=== PATIENT | male | born 1985 | race Caucasian/White ===

== ENCOUNTER 2020-04-19 08:49 | Emergency (ER) | payer SELFPAY ==
--- OUTSIDE RECORDS SUMMARY | 2020-04-19 09:22 | XMS REPORT | Summary of Care ---
:1985 [facility] Organization [facility] Address [address] [place] [address] Care Team Providers Name Role Phone Pcp, Patient Does Not Have A Primary Care Provider +[id number] 0-0000 Reason for Referral (Routine) Status Reason Specialty Diagnoses / Referred By Referred To Procedures Contact Contact New Request Internal Medicine Diagnoses RUQ abdominal pain Delilah Appiah, Pcp, Patient Procedures Discharge Follow-up: PCP PATIENT DOES NOT HAVE A PCP; 1 Week MD Does Not Have A 301 COUNTS INCLUDE 234 BEDS AT THE [facility] [address] [place] [id number] Phone: MRI/CAT Scan (JOSE A) Status Reason Specialty Diagnoses / Referred By Referred To Procedures Contact Contact New Request Diagnostic Diagnoses Acute cholecystitis Delilah Appiah Radiology Procedures CT ABDOMEN PELVIS W CONTRAST CT ABDOMEN PELVIS W CONTRAST MD Cristiane [address] [place] [id number] Radiology Services (STAT) Status Reason Specialty Diagnoses / Referred By Referred To Procedures Contact Contact New Request Diagnostic Diagnoses Epigastric burning sensation Epigastric abdominal pain Delilah Cochran Radiology Procedures US GALL BLADDER US ABDOMEN LIMITED R, EMNP 301 COUNTS INCLUDE 234 BEDS AT THE [facility] [id number] [place] [address] Reason for Visit Reason Comments Abdominal Pain Auth/Cert Status Reason Specialty Diagnoses / Referred By Referred To Procedures Contact Contact Medicine - Diagnoses acute cholecystitis Adc Med Surg Inpatient only [address] [place] [address] [place] [address] Encounter Details Date Type Department Care Team Description 03/10/2020 - Emergency Medicine (EMILY 10B) Delilah Cochran EMNP 301 COUNTS INCLUDE 234 BEDS AT THE [facility] [id number] [place], [place] [id number] Acute cholecystitis 03/14/2020 712 [facility] Cruzito Simons MD [address] [place] [address]. [address] [place], [place] [id number] [place] [address] Delilah Appiah MD 301 COUNTS INCLUDE 234 BEDS AT THE [facility] [id number] [place], [place] [id number] [phone] Allergies No Known Allergiesdocumented as of this encounter (statuses as of 03/14/2020) Medications Medication Sig Dispensed Refills Start Date End Date Status nicotine 21 mg/24 hr Apply 1 Patch to 7 Patch 0 03/15/2020 1 05/23/2019 Active patchIndications: RUQ area(s) every 24 abdominal pain (twenty-four) hours for 7 days. ciprofloxacin HCl 500 Take 1 tablet by 6 tablet 0 03/15/2020 03/18/2020 Active mg tabletIndications: mouth every 12 RUQ abdominal pain (twelve) hours for 3 days. metroNIDAZOLE 250 mg Take 2 tablets 18 tablet 0 03/15/2020 Active tabletIndications: RUQ by mouth every 8 abdominal pain (eight) hours for 3 days. documented as of this encounter (statuses as of 03/14/2020) Active Problems Problem Noted Date Acute cholecystitis 03/11/2020 documented as of this encounter (statuses as of 03/14/2020) Social History Tobacco Use Types Packs/Day Years Used Date Current Every Day Smoker Cigarettes Smokeless Tobacco: Current User Chew Tobacco Cessation: Ready to Quit: No; Co unseling Given: Yes Comments: probably will not stop Alcohol Use Drinks/Week oz/Week Comments Yes 6 Cans of beer 6.0 Alcohol Habits Answer Date Recorded How often do you have a drink containing 4 or more times a w [place] 03/11/2020 alcohol? How many drinks containing alcohol do you have 5 or 6 03/12/2020 on a typical day when you are drinking? How often do you have six or more drinks on one Not asked 03/11/2020 occasion? Sex Assigned at Date Recorded Not on file COVID-19 Exposure Response Date Recorded In the last month, have you been in contact with No / Unsure 03/12/2020 11:49 PM INSTRUCTOR CREELER someone who was confirmed or suspected to have Coronavirus / COVID-19? documented as of this encounter Last Filed Vital Signs Vital Sign Reading Time Taken Comments Blood Pressure 132/81 03/14/2020 11:55 AM INSTRUCTOR CREELER Pulse 58 03/14/2020 7:37 AM INSTRUCTOR CREELER Temperature 37.3 C (99.1 F) 03/14/2020 11:55 AM INSTRUCTOR CREELER Respiratory Rate 18 03/14/2020 11:55 AM INSTRUCTOR CREELER Oxygen Saturation 100% 03/14/2020 7:37 AM INSTRUCTOR CREELER Inhaled Oxygen Concentration - - Weight 71.2 kg (157 lb) 03/13/2020 1:08 AM INSTRUCTOR CREELER Height 170.2 cm (5' 7") 03/11/2020 2:03 AM INSTRUCTOR CREELER Body Mass Index 24.59 03/11/2020 2:03 AM INSTRUCTOR CREELER documented in this encounter Discharge Instructions AttachmentsThe following attachments cannot be sent through Care Everywhere. Epigastric Pain (Uncertain Cause) (Brazilian)Colitis, Understanding (Brazilian) Gastritis (Adult) (Brazilian)Gastritis, Understanding (Brazilian)Ciprofloxacin tablets (Brazilian)Metronidazole tablets or capsules (Brazilian)documented in this encounter Progress Notes Britany Isbell RN - 03/14/2020 12:40 PM INSTRUCTOR CREELER Care Management Discharge Disposition Note (DCDN) 5-2-1 Interventions: Disease specific education;Intensive medication reconciliation/management;Cleardischarge plan;Follow-up appointments;Teach back 5-2-1 Providers: Nurse;Physician;Business Data Analyst/Wound Care Center Consultant 5-2-1 Patient Capacity Improvements: Avoidance of adverse events/readmission Discharge Plan for ongoing care and services: Patient Choice completed for referred services: Discussed with patient/patients family involved in decision making: Patient's family or support contact: Discharge Plan: Receiving facility was provided the following clinical documentation at discharge- CM Facesheet, Consult notes, Labs, Progress Notes, MAR: DME location: Other DME location: Durable Medical Equipment: Home Health location: Discharge location(s): Community resources/referrals made or provided to patient: Yes Resources/Referrals: Mental Status: Alert & Oriented to Person,Place & Time Psychosocial issues and/or concerns resulting in patient being a high risk for re-admission: Lack offunding Manage ADL indepentdly: Yes Living Arrangement: Apartment Other living arrangement: Address of living arrangement: [address] [place] [address] Funding Resources: Self Pay Has patient been referred to [facility]? Nursing informed of discharge plan: No CHP referral sent? No CM medication request completed (if appropriate): No PCP: No Transportation: Private Vehicle Prior authorization obtained for ambulance: Authorization number: CPT code: Discharge Medications Will the patient be able to obtain his medications? Yes Does the patient have transportation to to obtain the prescription medications? Yes CM Medication Request completed (if appropriate): Yes Name of RN informed: AL Expected discharge date: 03/15/2020 Time: Additional Information: CM/SW Name & Contact number: Britany Isbell RN Ph. [phone] The following information has been provided to the facility noted above: reason for the patient discharge or transfer; patients physical and psychosocial status; summary of care, treatment, servicesprovided to patient; and the patient progress toward goals. hMina jose RN - 03/13/2020 12:25 PM CSTCare Management Social Functional Assessment Patient Name: Julio Nieto Age: [age] year old Sex: male Previous admit date: N/A Current diagnosis and co-morbidities: acute cholecystitis Readmission Questions: Was patient discharged from any acute care hospital within the last 30 days: No Social Functional Assessment: Primary language spoken/preferred: Brazilian Mental Status: Other Information given by: Other Name and phone number of person giving information: parents in [place] SO [phone] Patient's support system: Parent Name and number of support system: parents in [place] [phone] Primary Kitchen Helper: Self MPOA: No Living Arrangement: Apartment: Upstairs Address of living arrangement : physical address [address] [address] Persons living in home: Same as support system Barriers to returning home: None Baseline functional status- ambulation: Independent Functional status-baseline personal care: Independent Baseline functional status- driving: Independent Baseline functional status- grocery shopping: Independent Functional status-baseline housekeeping: Independent Functional status-baseline meal prep: Independent Current functional status same as prior: No Current functional status- ambulation: Requires minimal to moderate assistance Current functional status- personal care: Requires minimal to moderate assistance Current functional status- driving: Dependent Current functional status- grocery shopping: Dependent Current functional status-house keeping: Dependent Current functional status- meal preparation: Dependent Do you have a PCP?: No Refered to: [facility] Agency: No Provider Services: No DME Company: No Equipment: None Hemodialysis: No Community resources utilized: [facility] [employer];[facility] Fact Sheet;[facility] Funding Resources: Self Pay Prescription coverage plan: Self Pay Pharmacy where meds are filled: Other Other pharmacy: [id number] [address] [place] [address] Anticipated services prior to disharge: Consult;Continue Medical Eval;Lab Values;MRI/CT/US;PT/OT/ST;Reassess prior to discharge Expected mode of discharge transportation: Personal vehicle;Same as support system Additional info required for discharge planning: Pending medical evaluation Recommended discharge plan: Home SFA Complete: Social Functional Assessment complete: Yes Alcohol Use Screening (AUDIT-C) How often do you have a drink containing alcohol?: 2 to 3 times a week SCORE: 3 How many drinks containing alcohol do you have on a typical day when you are drinking?: 1 or 2 drinks How often do you have six or more drinks on one occasion?: Monthly Total Score (AUDIT-C): 5 Role of Care Management explained. Any issues or concerns with obtaining/affording your medications at home: no. Are you or your support system able to picker box operator medications at discharge: yes. Describe: self and GF. MARLEN Rivas, RN Mortgage Collector [email or web address] O:[phone] F:[phone] Ac Velez MD - 03/12/2020 5:01 PM CST Hospital Medicine Progress Note Name: Julio Nieto : 1985 Admit Date: 03/10/2020 PCP on file: PATIENT DOES NOT HAVE A PCP ASSESSMENT: Julio Nieto is a 34 year old male with PLAN: # Acute abd pain, diarrhea # Questionable acute cholecystitis # Leukocytosis - continue zosyn day 2 - IVF - PPI - pain and nausea control - surgery following - patient needs abd/pelv CT to guide further management. However, the CT machine at [facility] remains down. Will request transfer for CT abd/pelv Addendum: case d/w Dr. Russell, who kindly accepted the patient for CT abd/pelv # Mild hyperkalemia - etiology unclear - monitor # tobacco abuse - patient was counseled for smoking cessation - nicotine patch Dispo: transfer to the main campus for CT abc/pelv. 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 Afebrile. OBJECTIVE: Vital signs range: Temp: [35.7 C (96.2 F)-36.8 C (98.3 F)] 36.4 C (97.6 F) Pulse: [65-80] 67 Resp: [18] 18 BP: (103-141)/(51-89) 135/89 Most recent vital signs: BP 135/89 | Pulse 67 | Temp 36.4 C (97.6 F) (Temporal Artery) | Resp 18 | Ht 1.702 m (5' 7") | Wt 71.3 kg (157 lb 1.6 oz) | SpO2 99% | BMI 24.61 kg/m I/O: I/O last 3 completed shifts: In: 300 [I.V.:300] Out: 800 [Urine:800] PHYSICAL EXAM: General: alert and oriented x 4 (person, place, date/time and situation); no apparent distress HEENT: pupils equal, round, reactive to light; extraocular movements intact; oropharynx clear; moistmucous membranes Neck: supple, no lymphadenopathy, no bruits, no JVD Lungs: clear to auscultation bilaterally Cardio: S1, S2 normal; no murmurs, rubs or gallops Abdomen: soft; mild tender at epigastric; non-distended; normoactive bowel sounds Extremities: no clubbing, cyanosis, or edema Skin: no rashes Neuro: cranial nerves II through XII grossly intact; sensation grossly intact; muscle strength 5 outof 5 in all four extremities, no focal deficits, alert and oriented x 3 LABS: I reviewed all the relevant patient's new lab test results Recent Results (from the past 24 hour(s)) CBC WITH DIFF Collection Time: 03/12/20 4:04 AM Result Value Ref Range WBC 13.73 (H) 4.20 - 10.70 10*3/L RBC 3.96 (L) 4.26 - 5.52 10*6/L HGB 12.3 12.2 - 16.4 g/dL HCT 37.5 (L) 38.4 - 49.3 % MCV 94.7 81.7 - 95.6 fL MCH 31.1 26.1 - 32.7 pg MCHC 32.8 31.2 - 35.0 g/dL RDW-SD 43.2 38.5 - 51.6 fL RDW-CV 12.4 12.1 - 15.4 % PLT 213 150 - 328 10*3/L MPV 9.7 (L) 9.8 - 13.0 fL NRBC/100 WBC 0.0 0.0 - 10.0 /100 WBCs NRBC x10^3 <0.01 10*3/L GRAN MAT (NEUT) % 67.0 % IMM GRAN % 0.90 % LYMPH % 15.6 % MONO % 15.4 % EOS % 0.5 % BASO % 0.6 % GRAN MAT x10^3(ANC) 9.21 (H) 1.99 - 6.95 10*3/uL IMM GRAN x10^3 0.12 (H) 0.00 - 0.06 10*3/uL LYMPH x10^3 2.14 1.09 - 3.23 10*3/uL MONO x10^3 2.11 (H) 0.36 - 1.02 10*3/uL EOS x10^3 0.07 0.06 - 0.53 10*3/uL BASO x10^3 0.08 0.01 - 0.09 10*3/uL COMP. METABOLIC PANEL (41795) Collection Time: 03/12/20 4:04 AM Result Value Ref Range NA 140 135 - 145 mmol/L K 5.3 (H) 3.5 - 5.0 mmol/L CL 104 98 - 108 mmol/L CO2 TOTAL 29 23 - 31 mmol/L AGAP 7 2 - 16 BUN 6 (L) 7 - 23 mg/dL GLUCOSE 109 70 - 110 mg/dL CREATININE 0.89 0.60 - 1.25 mg/dL TOTAL BILI 0.4 0.1 - 1.1 mg/dL CALCIUM 9.0 8.6 - 10.6 mg/dL T PROTEIN 5.3 (L) 6.3 - 8.2 g/dL ALBUMIN 3.0 (L) 3.5 - 5.0 g/dL ALK PHOS 73 34 - 122 U/L ALTv 18 5 - 50 U/L AST(SGOT) 16 13 - 40 U/L eGFR Calculation (Non-) 99.1 mL/min/1.73m2 eGFR Calculation () 120.1 mL/min/1.73m2 HIV 1/2 AG-AB WITH REFLEX Collection Time: 03/12/20 4:04 AM Result Value Ref Range HIV 1/2 Ag-Ab with Reflex Negative Negative HIV Semi-quantitative 0.08 IMAGING: I reviewed all the relevant patient's new radiology test results Hospital Encounter on 03/10/20 US GALL BLADDER Narrative RIGHT UPPER QUADRANT ULTRASOUND HISTORY: rule out cholecystitis COMPARISON: None. TECHNIQUE: Focused Real-time grayscale and color Doppler right upper quadrant ultrasound. FINDINGS: LIVER: Normal in size and echo-texture. No focal hepatic lesion. Normal hepatopetal flow within the main portal vein. GALLBLADDER: Hydropic gallbladder. Isoechoic debris layers dependently within the gallbladder lumen, likely represent cholelithiasis. Small volume pericholecystic fluid. No sonographic Montano's sign. The common bile duct measures 5 mm. PANCREAS: Visualized portions of the pancreatic head, neck and body appear unremarkable. RIGHT KIDNEY: The visualized portion of the right kidney is unremarkable. Impression Distended gallbladder with no definite shadowing stones or mural thickening. Minimal internal echogenic material may represent sludge or small stones. Negative sonographic Montano's sign. Findings are unlikely to represent acute cholecystitis. Preliminary Report Dictated by Resident: Milagros Cordon I, Stevie Kim MD., have reviewed this study and agree with the above report. MEDICATIONS: I reviewed the current inpatient medications ordered Current Facility-Administered Medications Medication Dose Route Frequency Last Rate Last Admin acetaminophen (TYLENOL) tablet 1,000 mg 1,000 mg Oral Q8HPRN morpHINE injection 2 mg 2 mg Slow IV Push Q6HPRN 2 mg at 03/12/20 1355 traMADoL (ULTRAM) tablet 50 mg 50 mg Oral Q6HPRN 50 mg at 03/12/20 1240 alum-mag hydroxide-simeth (MAALOX PLUS / MAG-AL PLUS) 200-200-20 mg/5 mL suspension 30 mL 30 mLOral BID 30 mL at 03/12/20 0759 D5W 0.45% NaCl (1/2NS) IV infusion 1,000 mL 1,000 mL IV Infusion CONTINUOUS 125 mL/hr at 03/12/20 0816 1,000 mL at 03/12/20 0816 lactobacillus acidophilus (ACIDOPHILLUS) 25 million cell -100 mg captab 1 tablet 1 tablet Oral BID 1 tablet at 03/12/20 0759 nicotine (NICODERM) 21 mg/24 hr patch 1 Patch 1 Patch Topical Q24H 1 Patch at 03/12/20 0759 ondansetron (ZOFRAN (PF)) injection 4 mg 4 mg Slow IV Push Q6HPRN 4 mg at 03/11/20 1511 pantoprazole (PROTONIX) 40 mg in NaCl 0.9% (NS) 100 mL MINI-BAG 40 mg IV Piggyback Q12H 40 mgat 03/12/20 0759 piperacillin-tazobactam (ZOSYN) 3.375 g in NaCl 0.9% (NS) 100 mL MINI-BAG 3.375 g IV Piggyback Q6H ABX 3.375 g at 03/12/20 1630 zolpidem (AMBIEN) tablet 5 mg 5 mg Oral QHSPRN 5 mg at 03/12/20 0015 sodium chloride (NS) injection 5 mL 5 mL Intravenous PRN Adrian Bonner MD - 03/12/2020 9:42 AM CST GENERAL SURGERY DAILY PROGRESS NOTE Patient Name: Julio Nieto Date of : 1985 Date: 03/12/2020 CC: abdominal pain 24 Hour Events: -No acute events overnight -CT A/P unable to be obtained due to broken scanner -Reports pain is mildly improved -One episode of diarrhea, denies nausea or vomiting Intake/Output Intake/Output Summary (Last 24 hours) at 03/12/2020 0942 Last data filed at 03/12/2020 0725 Gross per 24 hour Intake 100 ml Output 200 ml Net -100 ml Physical Exam: Vital Signs Temp: [35.7 C (96.2 F)-37.1 C (98.8 F)] Pulse: [65-85] Resp: [18] BP: (103-125)/(51-71) MAP (mmHg): [88] Constitutional: no acute distress and not in pain General: A & O x 3 to person, place and situation HEENT: moist mucous membranes Respiratory: clear to auscultation bilaterally Cardio: regular rate and rhythm Abdomen: soft, nondistended, moderately TTP in periumbilical region and right flank Extremities: DP and PT pulses 3+ bilaterally. No edema. Skin: no rashes Diagnostic information: Cell count Recent Labs 03/10/20213503/11/20 0559 03/12/20 0404 WBC 17.59* 16.08* 13.73* HGB 13.2 11.6* 12.3 MCV 92.6 92.8 94.7 PLT 212 206 213 Chemistry Recent Labs 03/10/20213503/11/20 0559 03/12/20 0404 NA 133* 134* 140 K 4.4 4.7 5.3* CL 97* 103 104 TCO2 28 26 29 CREAT 0.97 0.76 0.89 GLU 135* 134* 109 MG 2.0 -- -- CA 8.8 8.5* 9.0 Coagulation Profile Recent Labs 03/11/20 0559 PTPAT 15.8* PTINR 1.3 LFTs Recent Labs 03/10/20213503/11/20 0559 03/12/20 0404 AST 32 27 16 ALT 33 23 18 ALKPHOS 78 65 73 LIPASE 105 -- -- BILIT 0.5 0.5 0.4 Radiology: Us Gall Bladder Result Date: 03/11/2020 RIGHT UPPER QUADRANT ULTRASOUND HISTORY: rule out cholecystitis COMPARISON: None. TECHNIQUE: Focused Real-time grayscale and color Doppler right upper quadrant ultrasound. FINDINGS: LIVER: Normal insize and echo-texture. No focal hepatic lesion. Normal hepatopetal flow within the main portal vein. GALLBLADDER: Hydropic gallbladder. Isoechoic debris layers dependently within the gallbladder lumen, likely represent cholelithiasis. Small volume pericholecystic fluid. No sonographic Montano's sign.The common bile duct measures 5 mm. PANCREAS: Visualized portions of the pancreatic head, neck and ninoska dy appear unremarkable. RIGHT KIDNEY: The visualized portion of the right kidney is unremarkable. Distended gallbladder with no definite shadowing stones or mural thickening. Minimal internal echogenic material may represent sludge or small stones. Negative sonographic Montano's sign. Findings are unlikely to represent acute cholecystitis. Preliminary Report Dictated by Resident: Milagros Cordon I,Stevie Kim MD., have reviewed this study and agree with the above report. Assessment : Julio Nieto is a 34 year old male presenting with 3 days of periumbilical abdominal pain associated with 4-5 daily episodes of diarrhea, in setting of leukocytosis to 17. RUQ U/S demonstrated no evidence of acute cholecystitis. CT scan remains broken, inhibiting ability to obtain further imaging. Today, WBC is downtrending and abdominal tenderness is mildly improved. Plan: -Continue IV zosyn -Obtain CT scan if functioning today -Advance to [facility] -Serial abdominal exams Patient seen with Dr. Bell. Adrian Gates MD General Surgery, PGY-2 RUCTOR CREELER Associated attestation - Ace Bell MD - 03/13/2020 7:45 AM CSTAgree David Belldocumented in this encounter H&P Notes Noah Ricci MD - 03/12/2020 5:45 PM CST MEDICINE [facility] H&P Patient Name: Julio Nieto : 1985 Admit Date: 03/10/2020 Primary Care Physician: PATIENT DOES NOT HAVE A PCP CHIEF COMPLAINT Abdominal pain HISTORY OF PRESENT ILLNESS Julio Nieto is a 34 year old male with history of tobacco use (17 pack years + 6 months of dipping), etoh use (6 pack beer per day), PUD, testicular vessel surgery as a teenager presenting with complaint of abdominal pain. Patient admitted to [facility] on 03/11/20 for complaint of 2-3 day duration of epigastric and RUQ pain described as sharp, burning, worsened with food and associated with diarrhea and nausea. Denied anyprevious intra-abdominal surgeries. At [facility] patient was evaluated by surgery team who noted that patient presented with 3 days of periumbilical abdominal pain with 4-5 daily episodes of diarrhea, RUQ USdemonstrated no evidence of cholelithiasis or wall thickening, given findings surgery team noted that diagnosis of cholecystitis very unlikely with differential included colitis vs appendicitis vs gastroenteritis. They recommended no surgical intervention currently, continue with IV zosyn but to obtain CT AP. CT broken at [facility] and patient transferred to [facility] for CT AP. On arrival to [facility] patient reports that he feels that his abdominal pain is improved since admission to [facility]. He describes events as started having bloating epigastric sensation four days ago whichworsened to a significant burning sensation, the epigastric sensation radiates down to his periumbilical region as well as his right mid flank. He notes that the pain has decreased in severity and has improved back from burning to the bloating sensation. Denies any emesis, chest pain, shortness of breath, fevers, chills, dysuria, shoulder pain or back pain. He notes belching but not as much he would correlate to the degree of bloating. He denies ever having similar abdominal symptoms in the past. Patient does note that he has chronic hemorrhoids with bright red blood in stool, he declines MEAGHAN orfurther evaluation saying that there is no change in the character of bright red blood in stool. Denies any new bleeding. 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 Denies noticing any testicular masses.Denies any testicular pain or headaches. PAST MEDICAL HISTORY Past Medical History: Diagnosis Date Smoker PAST SURGICAL HISTORY Past Surgical History: Procedure Laterality Date OTHER hand surgery OTHER vascular surgery in testicle MEDICATIONS No current facility-administered medications on file prior to encounter. No current outpatient medications on file prior to encounter. ALLERGIES No Known Allergies FAMILY HISTORY Family History Problem Relation Age of Onset Coronary Heart Disease Mother SOCIAL HISTORY Social History Tobacco Use Smoking status: Current Every Day Smoker Types: Cigarettes Smokeless tobacco: Current User Types: Chew Substance Use Topics Alcohol use: Yes Alcohol/week: 6.0 standard drinks Types: 6 Cans of beer per week Frequency: 4 or more times a week Drinks per session: 5 or 6 Drug use: Not Currently REVIEW OF SYSTEMS Constitutional: Negative HEENT: Negative Cardiovascular: Negative Respiratory: Negative Gastrointestinal: Abdominal Pain per HPI Genitourinary: Negative Musculoskeletal: Negative Neurological: Negative PHYSICAL EXAM Vitals Vitals: 03/12/20 0725 03/12/20 1115 03/12/20 1649 03/12/20 2043 BP: 125/71 (!) 141/77 135/89 126/73 Pulse: 69 73 67 70 Resp: 18 Temp: 35.7 C (96.2 F) 36.2 C (97.2 F) 36.4 C (97.6 F) 35.6 C (96.1 F) TempSrc: Temporal Artery Temporal Artery Temporal Artery Temporal Artery SpO2: 98% 99% 99% 98% Weight: 71.3 kg (157 lb 1.6 oz) Height: Temp: [35.6 C (96.1 F)-36.4 C (97.6 F)] Pulse: [65-73] Resp: [18-20] BP: (104-141)/(51-89) MAP (mmHg): [88-102] SpO2 readings for the past 24 hrs: SpO2 03/11/20 1910 94 % 03/11/20 2308 96 % 03/12/20 0308 91 % 03/12/20 0725 98 % 03/12/20 1115 99 % 03/12/20 1649 99 % General: No apparent distress HEENT: able to track movement Neck: ROM intact Cardiovascular: RRR Respiratory: CTA b/l Abdomen: +BS hyperactive, mild epigastric tenderness and right abdominal tenderness, no rebound, no guarding, negative Montano's sign Rectal: patient declined MEAGHAN, reports he only has chronic hemorrhoids with chronic bleeding with no new changes : No suprapubic tenderness, completed testicular exam with nurse batt machine operator: no palpable masses or lesions and no tenderness of examination MSK: No lower extremity edema Skin: No apparent rashes Neuro: Coherent to conversation LABS WBC 17.59->16.08->13.7 Hb 12.3 EOS 0.07 K 5.3 Cr 0.89 AGAP 7 Ca 9.0 Albumin 3.0 ALP 73 ALT 18 AST 16 T bili 0.4 Lipase 105 A1c 4.8% TSH 5.59 INR 1.3 U/A negative for UTI HIV negative Feces Culture in process IMAGING US RUQ 03/10/20 FINDINGS: LIVER: Normal in size and echo-texture. No focal hepatic lesion. Normal hepatopetal flow within the main portal vein. GALLBLADDER: Hydropic gallbladder. Isoechoic debris layers dependently within the gallbladder lumen, likely represent cholelithiasis. Small volume pericholecystic fluid. No sonographic Montano's sign. The common bile duct measures 5 mm. PANCREAS: Visualized portions of the pancreatic head, neck and body appear unremarkable. RIGHT KIDNEY: The visualized portion of the right kidney is unremarkable. IMPRESSION Distended gallbladder with no definite shadowing stones or mural thickening. Minimal internal echogenic material may represent sludge or small stones. Negative sonographic Montano's sign. Findings are unlikely to represent acute cholecystitis. Chart Review: See HPI ASSESSMENT/PLAN Julio Nieto is a 34 year old male with PMH of tobacco use (17 pack years + 6 months of dipping), etoh use (6 pack beer per day), PUD, testicular vessel surgery as a teenager presenting with: Abdominal Pain Leukocytosis Hx of Testicular Vessel Surgery Hyperkalemia Tobacco Abuse ETOH Abuse Chronic Hemorrhoids with Bright Red Blood, patient declined MEAGHAN evaluation or further evaluation Patient presenting from [facility] with concern of abdominal pain around epigastric/robert-umbilical region and right side of abdomen. At [facility] patient had surgery evaluation who noted that acute cholecystis lesslikely based on RUQ US findings and recommended CT AP to evaluate for other causes of abdominal pain including colitis vs appendicitis vs enteritis. CT machine at [facility] broken and patient transferred to [facility] for further evaluation and CT AP. 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 Chronic Hemorrhoids with Bright Red Blood, patient declined MEAGHAN evaluation or further evaluation. Plan - Admit to [facility] - Vitals q4h, O2 per protocol - BMP, Mg, Phos - Free T4, previous elevated TSH at [facility] - CT AP ordered - Serial Abdominal Exams - C/w Zosyn 3.375 g IV q6h - LR 75 cc/hr for 24 hours, monitor volume status and UOP - C/w Nicotine patch, discussed importance of quitting smoking and ETOH use - C/w PPI IV BID pending CT scan - D/c Ambien, will start melatonin 3mg qhsprn - AFP, bHCG given history of testicular surgery and robert-umbilical pain, less likely etiology of pain given no testicular masses and no testicular symptoms at this time - Consult Surgery in morning if concerning findings on CT AP F: LR 75 cc/hr for 24 hours E: Replete prn N: CLD, if concerning findings on CT AP will need to be made NPO for surgical evaluation Prophylaxis: Heparin, start tomorrow given possible need of surgical evaluation if concerning findings on CT AP Code: Full Disp: Pending Noah Ricci MD [facility] Internal Medicine Resident RUCTOR CREELER Associated attestation - Colt Russell MD - 03/13/2020 2:17 AM CSTI personally examined the patient on 03/12/[address] Ricci's resident note as written. I actively participated in the decision-making process. Please see the resident's note for additional details. Colt Russell MD Division of Internal Insole And Heel StiffenerShell Reprint Operator Cruzito Simons MD - 03/11/2020 3:00 AM CST General Internal Medicine Admission History & Physical CHIEF COMPLAINT: abdominal pain History of Present Illness 34 y/o male presents with epigastric and RUQ pain, sharp, burning, severe, intermittent for 2-3 days, worsened with food and associated with diarrhea and nausea and low grade fever. No hx of abdominal surgery. ER spoke to Dr. Ortiz for possible acute cholecystitis. PAST MEDICAL HISTORY Past Medical History: Diagnosis Date Smoker Past Surgical History: Procedure Laterality Date OTHER hand surgery OTHER vascular surgery in testicle Family History Problem Relation Age of Onset Coronary Heart Disease Mother ALLERGIES No Known Allergies MEDICATIONS There are no discharge medications for this patient. SOCIAL HISTORY Social History Socioeconomic History Marital status: Single Spouse name: Not on file Number of children: Not on file Years of education: Not on file Highest education level: Not on file Occupational History Not on file Social Needs Financial resource strain: Not on file Food insecurity Worry: Not on file Inability: Not on file Transportation needs Medical: Not on file Non-medical: Not on file Tobacco Use Smoking status: Current Every Day Smoker Smokeless tobacco: Current User Substance and Sexual Activity Alcohol use: Yes Frequency: 4 or more times a week Drug use: Not Currently Sexual activity: Not on file Lifestyle Physical activity Days per week: Not on file Minutes per session: Not on file Stress: Not on file Relationships Social connections Talks on phone: Not on file Gets together: Not on file Attends episcopalian service: Not on file Active member of club or organization: Not on file Attends meetings of clubs or organizations: Not on file Relationship status: Not on file Intimate partner violence Fear of current or ex partner: Not on file Emotionally abused: Not on file Physically abused: Not on file Forced sexual activity: Not on file Other Topics Concern Not on file Social History Narrative Not on file REVIEW OF SYSTEMS Constitutional: negative fevers/chills, weight changes + appetite change Eyes: negative acute blurry vision, eye discharge Ears, Nose, Mouth, Throat: negative dysphagia, runny nose, sore throat, tinnitus Cardiovascular: negative chest pain, paplitaitons Respiratory: positive sob, negative cough Gastrointestinal: positive abd pain, distention, nausea, diarrhea Genitourinary: Negative dysuria, hematuria Musculoskeletal: negative calf pain, swelling Integumentray: negative rash, itching Neurological: negative syncope, focal weakness Psychiatric: negative hallucinations PHYSICAL EXAMINATION Vitals: 03/11/20 0130 03/11/20 0145 03/11/20 0203 03/11/20 0340 BP: 116/62 (!) 141/78 Pulse: 84 86 80 92 Resp: 14 12 16 16 Temp: 36.8 C (98.3 F) 36.9 C (98.4 F) TempSrc: Temporal Artery Temporal Artery SpO2: 98% 97% 98% 99% Weight: 74.1 kg (163 lb 6.4 oz) Height: 1.702 m (5' 7") No respiratory distress whne lying, there is some distress due to pain Anicteric sclera, oral mucosa clear Good air entry b/l RRR, nl s1s2 Abd soft, + tender in epigastric and RUQ region, no clear murphys sign, no rebound/guarding, + some distention No significant LE, no calf tenderness AAO, no gross deficits Skin warm and dry Bilateral knees inspected and palpated and is not red or swollen LABS - reviewed pertinent labs as below: CBC BMP PT/INR WBC (10*3/L) Date Value 03/10/2020 17.59 (H) NA (mmol/L) Date Value 03/11/2020 134 (L) No results found for: PT RBC (10*6/L) Date Value 03/10/2020 4.19 (L) K (mmol/L) Date Value 03/11/2020 4.7 INR (no units) Date Value 03/11/2020 1.3 PLT (10*3/L) Date Value 03/10/2020 212 CALCIUM (mg/dL) Date Value 03/11/2020 8.5 (L) HGB (g/dL) Date Value 03/10/2020 13.2 CL (mmol/L) Date Value 03/11/2020 103 aPTT HCT (%) Date Value 03/10/2020 38.8 BUN (mg/dL) Date Value 03/11/2020 12 No results found for: APTTPAT CREATININE (mg/dL) Date Value 03/11/2020 0.76 IMAGING - reviewed, pertinent results as below: Hospital Encounter on 03/10/20 US GALL BLADDER Narrative RIGHT UPPER QUADRANT ULTRASOUND HISTORY: rule out cholecystitis COMPARISON: None. TECHNIQUE: Focused Real-time grayscale and color Doppler right upper quadrant ultrasound. FINDINGS: LIVER: Normal in size and echo-texture. No focal hepatic lesion. Normal hepatopetal flow within the main portal vein. GALLBLADDER: Hydropic gallbladder. Isoechoic debris layers dependently within the gallbladder lumen, likely represent cholelithiasis. Small volume pericholecystic fluid. No sonographic Montano's sign. The common bile duct measures 5 mm. PANCREAS: Visualized portions of the pancreatic head, neck and body appear unremarkable. RIGHT KIDNEY: The visualized portion of the right kidney is unremarkable. Impression Distended gallbladder with no definite shadowing stones or mural thickening. Minimal internal echogenic material may represent sludge or small stones. Negative sonographic Montano's sign. Findings are unlikely to represent acute cholecystitis. Preliminary Report Dictated by Resident: Stevie Romero MD., have reviewed this study and agree with the above report. ASSESSMENT/PLAN Julio Nieto is a 34 year old male with PMH as listed above, admitted to the hospital with: Acute cholecystitis Acute choleycystitis RUQ u/s equivocal General surgery consult Dr. Ortiz, called from ER Possible surgery, discuss need for HIDA Iv zosyn day 1 IV protonix Iv morphine prn IVF Leukocytosis, monitor Does not take any home medications Smoker. Counseled on cessation for 3 minutes on admission, nicotine patch Chronic alcohol abuse. Counseled. MV/folic acid/thiamine. Monitor for withdrawals Continuous puls ox dvt proph - SCD Full Code Place in observation documented in this encounter ED Notes Magdalena Espinosa RN - 03/10/2020 9:30 PM CSTCC: Pt reports bloating, epigastric burning, and diarrhea x 2-3 days PMHx: Stomach ulcers as a teenager, cat scratch fever; smoker and daily drinking PSH:vascular surgery on testicle MEDS:none daily; immodium, gas X, apple cider vinegar Tetanus: UTD Awake, alert, oriented, resp reg unlabored, skin warm, color appropriate for race, moves all ext without difficulty, amb with steady gait Appears in no distress RUCTOR CREELER Delilah Cochran EMNP - 03/10/2020 9:22 PM CST [facility] Emergency Department Note Patient Name: Julio Nieto Date of : 1985 34 year old male Treatment Room: AR4/AR4 Primary Care Physician: No primary care provider on file. Patient Escorted by: Self [9] Mode of Arrival: Personal means [1] EMS Treatment Prior to ED Arrival: [employer] treatment: Medication (comment) Travel and Exposure Screening: Symptoms Does patient have any of these symptoms?: (not recorded) Exposure Screening Has patient had contact with someone with a communicable disease in the last month?: (not recorded) Diseases exposed to:: (not recorded) Is Patient ?: (not recorded) Exposure Date: (not recorded) Chief Complaint: Chief Complaint Patient presents with Abdominal Pain History of Present Illness: Patient reports bloating, epigastric/RUQ pain with diarrhea x 3 days. Denies fever. Reports occasional nausea and has had decreased appetite. Has been taking gas-x, immodium. Has had diarrhea x 4 today, hx of hemorrhoids and has had wiped blood, which is not unusual for him. No known medical hx No abdominal surgeries 1PPD smoker Daily etoh, states 6 pack every day Denies elicit drug use Past Medical History/Immunizations: History reviewed. No pertinent past medical history. Tetanus received in last 5 years: Yes Allergies: No Known Allergies Past Social History: Substance & Sexual Activity No substance use or sexual activity history on file. Past Surgical History: History reviewed. No pertinent surgical history. Review of Systems: Review of Systems Constitutional: Positive for appetite change. Negative for chills and fever. HENT: Negative for ear pain and sore throat. Eyes: Negative for pain and visual disturbance. Respiratory: Negative for cough, chest tightness, shortness of breath and wheezing. Cardiovascular: Negative for chest pain, palpitations and leg swelling. Gastrointestinal: Positive for abdominal distention, abdominal pain, diarrhea and nausea. Negative for constipation and vomiting. Genitourinary: Negative for dysuria and flank pain. Musculoskeletal: Negative for arthralgias, gait problem, myalgias and neck pain. Skin: Negative for rash. Neurological: Negative for dizziness, syncope, weakness and headaches. All other systems reviewed and are negative. Hematological: Does not bruise/bleed easily. Physical Exam: ED Triage Vitals [03/10/202131] Weight 74.8 kg (165 lb) Actual or estimated Estimated by patient/family report Height 1.676 m (5' 6") BP (!) 153/91 Pulse 97 Resp 18 Temp 36.7 C (98 F) Temp source Oral SpO2 99 % Measured on Room air Physical Exam Vitals signs reviewed. Constitutional: General: He is not in acute distress. Appearance: Normal appearance. He is well-developed and normal weight. He is not ill-appearing, toxic-appearing or diaphoretic. HENT: Head: Normocephalic and atraumatic. Right Ear: External ear normal. Left Ear: External ear normal. Nose: Nose normal. No rhinorrhea. Mouth/Throat: Mouth: Mucous membranes are moist. Pharynx: Oropharynx is clear. No oropharyngeal exudate or posterior oropharyngeal erythema. Eyes: General: No scleral icterus. Right eye: No discharge. Left eye: No discharge. Conjunctiva/sclera: Conjunctivae normal. Neck: Musculoskeletal: Normal range of motion and neck supple. Cardiovascular: Rate and Rhythm: Normal rate and regular rhythm. Pulses: Normal pulses. Heart sounds: No murmur. Pulmonary: Effort: Pulmonary effort is normal. No respiratory distress. Breath sounds: Normal breath sounds. No wheezing. Chest: Chest wall: No tenderness. Abdominal: General: Bowel sounds are normal. There is distension. Palpations: Abdomen is soft. Tenderness: There is abdominal tenderness in the right upper quadrant and epigastric area. There is no right CVA tenderness, left CVA tenderness, guarding or rebound. Comments: Slight distention noted Musculoskeletal: Normal range of motion. General: No swelling, tenderness or signs of injury. Right lower leg: No edema. Left lower leg: No edema. Lymphadenopathy: Cervical: No cervical adenopathy. Skin: General: Skin is warm and dry. Capillary Refill: Capillary refill takes less than 2 seconds. Coloration: Skin is not jaundiced or pale. Findings: No rash. Neurological: General: No focal deficit present. Mental Status: He is alert and oriented to person, place, and time. GCS: GCS eye subscore is 4. GCS verbal subscore is 5. GCS motor subscore is 6. Sensory: No sensory deficit. Motor: No weakness or abnormal muscle tone. Gait: Gait normal. Psychiatric: Mood and Affect: Mood normal. Behavior: Behavior normal. Thought Content: Thought content normal. Judgment: Judgment normal. Radiology: Hospital Encounter on 03/10/20 US GALL BLADDER Narrative RIGHT UPPER QUADRANT ULTRASOUND HISTORY: rule out cholecystitis COMPARISON: None. TECHNIQUE: Focused Real-time grayscale and color Doppler right upper quadrant ultrasound. FINDINGS: LIVER: Normal in size and echo-texture. No focal hepatic lesion. Normal hepatopetal flow within the main portal vein. GALLBLADDER: Hydropic gallbladder. Isoechoic debris layers dependently within the gallbladder lumen, likely represent cholelithiasis. Small volume pericholecystic fluid. No sonographic Montano's sign. The common bile duct measures 5 mm. PANCREAS: Visualized portions of the pancreatic head, neck and body appear unremarkable. RIGHT KIDNEY: The visualized portion of the right kidney is unremarkable. Impression Distended gallbladder with no definite shadowing stones or mural thickening. Minimal internal echogenic material may represent sludge or small stones. Negative sonographic Montano's sign. Findings are unlikely to represent acute cholecystitis. Preliminary Report Dictated by Resident: Stevie Romero MD., have reviewed this study and agree with the above report. Lab Results (24h): Recent Results (from the past 24 hour(s)) Complete Metabolic Panel Collection Time: 03/10/20 9:36 PM Result Value Ref Range NA 133 (L) 135 - 145 mmol/L K 4.4 3.5 - 5.0 mmol/L CL 97 (L) 98 - 108 mmol/L CO2 TOTAL 28 23 - 31 mmol/L AGAP 8 2 - 16 BUN 13 7 - 23 mg/dL GLUCOSE 135 (H) 70 - 110 mg/dL CREATININE 0.97 0.60 - 1.25 mg/dL TOTAL BILI 0.5 0.1 - 1.1 mg/dL CALCIUM 8.8 8.6 - 10.6 mg/dL T PROTEIN 6.6 6.3 - 8.2 g/dL ALBUMIN 3.7 3.5 - 5.0 g/dL ALK PHOS 78 34 - 122 U/L ALTv 33 5 - 50 U/L AST(SGOT) 32 13 - 40 U/L eGFR Calculation (Non-) 89.7 mL/min/1.73m2 eGFR Calculation () 108.7 mL/min/1.73m2 CBC with Differential Collection Time: 03/10/20 9:36 PM Result Value Ref Range WBC 17.59 (H) 4.20 - 10.70 10*3/L RBC 4.19 (L) 4.26 - 5.52 10*6/L HGB 13.2 12.2 - 16.4 g/dL HCT 38.8 38.4 - 49.3 % MCV 92.6 81.7 - 95.6 fL MCH 31.5 26.1 - 32.7 pg MCHC 34.0 31.2 - 35.0 g/dL RDW-SD 41.8 38.5 - 51.6 fL RDW-CV 12.2 12.1 - 15.4 % PLT 212 150 - 328 10*3/L MPV 9.7 (L) 9.8 - 13.0 fL NRBC/100 WBC 0.0 0.0 - 10.0 /100 WBCs NRBC x10^3 <0.01 10*3/L GRAN MAT (NEUT) % 77.2 % IMM GRAN % 0.90 % LYMPH % 9.4 % MONO % 11.5 % EOS % 0.5 % BASO % 0.5 % GRAN MAT x10^3(ANC) 13.59 (H) 1.99 - 6.95 10*3/uL IMM GRAN x10^3 0.15 (H) 0.00 - 0.06 10*3/uL LYMPH x10^3 1.66 1.09 - 3.23 10*3/uL MONO x10^3 2.02 (H) 0.36 - 1.02 10*3/uL EOS x10^3 0.09 0.06 - 0.53 10*3/uL BASO x10^3 0.08 0.01 - 0.09 10*3/uL BANDS MARKED INCREASED (A) DOHLE BODIES Present (A) Lipase, Serum Collection Time: 03/10/20 9:36 PM Result Value Ref Range LIPASE 105 0 - 220 U/L Urinalysis Collection Time: 03/10/20 9:36 PM Result Value Ref Range APPEARANCE Clear Clear COLOR Yellow Yellow PH 6.0 4.8 - 8.0 SP GRAVITY 1.012 1.003 - 1.030 GLU U QUAL Normal Normal BLOOD Negative Negative KETONES Negative Negative PROTEIN Negative Negative UROBILIN Normal Normal BILIRUBIN Negative Negative NITRITE Negative Negative LEUK ANTHONY Negative Negative RBC/HPF 2 0 - 3 HPF WBC/HPF 1 0 - 5 HPF BACTERIA Few (A) Negative SQ EPITH <1 HPF COVID-19 (ID NOW RAPID TESTING) Collection Time: 03/11/20 12:53 AM Specimen: NASOPHARYNGEAL SWAB Result Value Ref Range SARS-CoV-2 Rapid ID NOW Not Detected Not Detected ER scoring tools No data recorded Orders and Treatments: Orders Placed This Encounter Procedures US GALL BLADDER Complete Metabolic Panel CBC with Differential Lipase, Serum Urinalysis COVID-19 (ID NOW RAPID TESTING) LAB ONLY COVID INTERPRETATION Orders Placed This Encounter Medications sodium chloride (NS) injection 5 mL maalox:diphenhydrAMINE:lidocaine 2 % viscous 1:1:1 (FIRST-MOUTHWASH BLM) oral suspension 15 mL FENTanyl PF (SUBLIMAZE (PF)) injection 50 mcg DISCONTD: cefTRIAXone (ROCEPHIN) 1,000 mg in NaCl 0.9% (NS) 50 mL MINI-BAG nicotine (NICODERM) 14 mg/24 hr patch 1 Patch piperacillin-tazobactam (ZOSYN) 3.375 g in NaCl 0.9% (NS) 100 mL MINI-BAG cefTRIAXone (ROCEPHIN) 1,000 mg in NaCl 0.9% (NS) 50 mL MINI-BAG ED COURSE ED Course as of Mar 11 119SatMar 11, [address] Ortiz, accepted patient, wants patient NPO and on abx. [MM] 0036 Discussed results with patient, will call surgery to admit for equivicol for acute cholecystitis [MM] ED Course User Index [MM] Delilah Cochran, KINGSLEY MDM: MDM Reviewed: nursing note and vitals Interpretation: labs and ultrasound Consults: general surgery and admitting MD DDx: elevated lft (hepatitis v seven), cholecystitis, viral illness Diagnosis/Impression: ICD-10-CM ICD-9-CM 1. Acute cholecystitis K81.0 575.0 2. Epigastric burning sensation R10.13 789.06 3. Epigastric abdominal pain R10.13 789.06 4. RUQ abdominal pain R10.11 789.01 5. Leukocytosis, unspecified type D72.829 288.60 6. Bandemia D72.825 288.66 Disposition/Condition: ED Disposition ED Disposition Condition Comment Admit - Observation Is this patient COVID positive or a patient under investigation (PUI)?: No Treatment Team: BI[facility]O [[id number]] Primary reason for admission: Acute cholecystitis [575.0.ICD-9-CM] Secondary reason for admission: Leukocytosis [235937] Secondary reason for admission: Bandemia [288.66.ICD-9-CM] Is (or was) this a planned re-admission?: No Discharge Medications: Patient's Medications No medications on file At admission BP 132/78 | Pulse 89 | Temp 36.7 C (98 F) (Oral) | Resp 17 | Ht 1.676 m (5' 6") | Wt 74.8 kg (165 lb) | SpO2 98% | BMI 26.63 kg/m Electronically signed by: KINGSLEY Conner 03/10/2020 9:30 PM RUCTOR CREELER Associated attestation - Megan Flood MD - 03/11/2020 7:16 PM CSTAddendum I was personally available for consultation in the Emergency Department during this encounter and patient evaluation by KINGSLEY Cochran. documented in this encounter Miscellaneous Notes Care Plan - Prasanna Medrano RN - 03/14/2020 1:26 PM INSTRUCTOR CREELER Problem: Pain Goal: Control of pain at or below patient's documented comfort goal 03/14/2020 1326 by Prasanna Medrano RN Outcome: Adequate for discharge 03/14/2020 1326 by Prasanna Medrano RN Outcome: Progressing as expected Goal: Reduction in pain sensation 03/14/2020 1326 by Prasanna Medrano RN Outcome: Adequate for discharge 03/14/2020 1326 by Prasanna Medrano RN Outcome: Progressing as expected Problem: Discharge Planning Goal: Absence of venous thromboembolism 03/14/2020 1326 by Prasanna Medrano RN Outcome: Adequate for discharge 03/14/2020 1326 by Prasanna Medrano RN Outcome: Progressing as expected Goal: Adequate for discharge 03/14/2020 1326 by Prasanna Medrano RN Outcome: Adequate for discharge 03/14/2020 1326 by Prasanna Medrano RN Outcome: Progressing as expected Goal: Effective communication 03/14/2020 1326 by Prasanna Medrano RN Outcome: Adequate for discharge 03/14/2020 1326 by Prasanna Medrano RN Outcome: Progressing as expected Problem: Nutrition Deficit Goal: Adequate nutritional intake 03/14/2020 1326 by Prasanna Medrano RN Outcome: Adequate for discharge 03/14/2020 1326 by Prasanna Medrano RN Outcome: Progressing as expected are Wallace - Cristina Garcia RN - 03/14/2020 12:10 AM INSTRUCTOR CREELER Problem: Pain Goal: Control of pain at or below patient's documented comfort goal 03/14/2020 0010 by Cristina Garcia RN Outcome: Progressing as expected 03/13/20202357 by Cristina Garcia RN Outcome: Progressing as expected Goal: Reduction in pain sensation 03/14/2020 0010 by Cristina Garcia RN Outcome: Progressing as expected 03/13/20202357 by Cristina Garcia RN Outcome: Progressing as expected Problem: Discharge Planning Goal: Absence of venous thromboembolism 03/14/2020 0010 by Cristina Garcia RN Outcome: Progressing as expected 03/13/20202357 by Cristina Garcia RN Outcome: Progressing as expected Goal: Adequate for discharge 03/14/2020 0010 by Cristina Garcia RN Outcome: Progressing as expected 03/13/20202357 by Cristina Garcia RN Outcome: Progressing as expected Goal: Effective communication 03/14/2020 0010 by Cristina Garcia RN Outcome: Progressing as expected 03/13/20202357 by Cristina Garcia RN Outcome: Progressing as expected Problem: Nutrition Deficit Goal: Adequate nutritional intake 03/14/2020 0010 by Cristina Garcia RN Outcome: Progressing as expected 03/13/20202357 by Cristina Garcia RN Outcome: Progressing as expected are Wallace - rCistina Garcia RN - 03/13/2020 11:58 PM INSTRUCTOR CREELER Problem: Pain Goal: Control of pain at or below patient's documented comfort goal Outcome: Progressing as expected Goal: Reduction in pain sensation Outcome: Progressing as expected Problem: Discharge Planning Goal: Absence of venous thromboembolism Outcome: Progressing as expected Goal: Adequate for discharge Outcome: Progressing as expected Goal: Effective communication Outcome: Progressing as expected Problem: Nutrition Deficit Goal: Adequate nutritional intake Outcome: Progressing as expected are Plan - Rox Melgar RN - 03/13/2020 8:41 AM INSTRUCTOR CREELER Problem: Pain Goal: Control of pain at or below patient's documented comfort goal 03/13/2020 0841 by Rox Melgar RN Outcome: Progressing as expected 03/13/2020 0841 by Rox Melgar RN Outcome: Progressing as expected Goal: Reduction in pain sensation 03/13/2020 0841 by Rox Melgar RN Outcome: Progressing as expected 03/13/2020 0841 by Rox Melgar RN Outcome: Progressing as expected Problem: Discharge Planning Goal: Absence of venous thromboembolism 03/13/2020 08 by Rox Melgar RN Outcome: Progressing as expected 03/13/2020 08 by Rox Melgar RN Outcome: Progressing as expected Goal: Adequate for discharge 03/13/2020 0841 by Rox Melgar RN Outcome: Progressing as expected 03/13/2020 08 by Rox Melgar RN Outcome: Progressing as expected Goal: Effective communication 03/13/2020 0841 by Rox Melgar RN Outcome: Progressing as expected 03/13/2020 08 by Rox Melgar RN Outcome: Progressing as expected Problem: Nutrition Deficit Goal: Adequate nutritional intake Outcome: Progressing as expected are Plan - Cristina Garcia RN - 03/13/2020 1:42 AM INSTRUCTOR CREELER Problem: Pain Goal: Control of pain at or below patient's documented comfort goal Outcome: Progressing as expected Goal: Reduction in pain sensation Outcome: Progressing as expected Problem: Discharge Planning Goal: Absence of venous thromboembolism Outcome: Progressing as expected Goal: Adequate for discharge Outcome: Progressing as expected Goal: Effective communication Outcome: Progressing as expected are Plan - Patrica Phipps RN - 03/12/2020 8:16 PM INSTRUCTOR CREELER Problem: Pain Goal: Control of pain at or below patient's documented comfort goal Outcome: Progressing as expected Goal: Reduction in pain sensation Outcome: Progressing as expected Problem: Discharge Planning Goal: Absence of venous thromboembolism Outcome: Progressing as expected Problem: Discharge Planning Goal: Absence of venous thromboembolism Outcome: Progressing as expected Goal: Adequate for discharge Outcome: Progressing as expected Goal: Effective communication Outcome: Progressing as expected ursing Note - Shazia Flores RN - 03/12/2020 [facility] to Ritu SINGH 50-55 min. ursing Note - Shazia Flores RN - 03/12/2020 8:08 PM CSTInitiated transport with [facility] spoke with Laura .ETA 1hr 45 20:28 cancelled transport ursing Note - Karen Chew RN - 03/12/2020 5:33 AM CSTSummary: Occupational Exposure Source of occupational exposure. Labs were drawn for HIV, HCV, and HBsAg with patient's consent. are Plan - Anna Crowder RN - 03/11/2020 6:36 PM CSTProgressing as expected RUCTOR CREELER Care Plan - Yahaira Acevedo RN - 03/11/2020 4:19 AM INSTRUCTOR CREELER Problem: Pain Goal: Control of pain at or below patient's documented comfort goal Outcome: Progressing as expected Goal: Reduction in pain sensation Outcome: Progressing as expected Problem: Discharge Planning Goal: Absence of venous thromboembolism Outcome: Progressing as expected Goal: Adequate for discharge Outcome: Progressing as expected Goal: Effective communication Outcome: Progressing as expected D Nurse Note - Magdalena Espinosa RN - 03/11/2020 1:50 AM CSTPatient admitted to / for diagnosis of acute cholecystitis Patient agrees to admission, discussed plan of care with patient and family. Patient is awake, alert, oriented, resp reg unlabored, color appropriate for race, PIV intact No adverse reaction to medications administered while in ED Belongings with patient to unit Report to Yahaira Hoover D Nurse Note - Magdalena Espinosa RN - 03/11/2020 12:39 AM CSTPt ambulatory to bathroom, agrees to admission. documented in this encounter Plan of Treatment Name Type Priority Associated Diagnoses Date/Ti me FECES CULTURE LAB Routine 03/12/2020 8: 15 AM INSTRUCTOR CREELER URINE CULTURE LAB Routine 03/13/2020 8: 54 PM INSTRUCTOR CREELER Health Maintenance Due Date Last Done Comments VARICELLA VACCINES (1 of 2 - 2-dose childhood series) 06/17/1988 PNEUMOCOCCAL 0-64 YEARS COMBINED SERIES (1 of 1 - 06/17/1993 PPSV23) Depression Screening 1999 DTaP,Tdap,and Td Vaccines (1 - Tdap) 06/17/2006 INFLUENZA VACCINE (#1) 2019 documented as of this encounter Procedures Procedure Name Priority Date/Time Associated Diagnosis Comme nts CBC WITH DIFF Routine 03/14/2020 4:32 Results fo r AM INSTRUCTOR CREELER this procedure are in the results section. BASIC METABOLIC PANEL Routine 03/14/2020 4:32 Re sults for (NA, K, CL, CO2, AM INSTRUCTOR CREELER this proced ure GLUCOSE, BUN, are in the CREATININE, CA) results section. MAGNESIUM Routine 03/14/2020 4:32 Results for AM INSTRUCTOR CREELER this procedure are in the results section. URINE CULTURE Routine 03/13/2020 8:54 PM INSTRUCTOR CREELER URINALYSIS Routine 03/13/2020 8:54 Results for PM INSTRUCTOR CREELER this procedure are in the results section. GIARDIA Routine 03/13/2020 6:52 Results for CRYPTOSPORIDIUM AG SCR PM INSTRUCTOR CREELER this procedure are in the results section. CLOSTRIDIUM DIFFICILE Routine 03/13/2020 6:27 Re sults for TOXIN PM INSTRUCTOR CREELER this procedure are in the results section. TOTAL BETA HCG ASSAY Routine 03/13/2020 5:09 Res ults for AM INSTRUCTOR CREELER this procedure are in the results section. ALPHA FETOPROTEIN Routine 03/13/2020 5:09 Result s for AM INSTRUCTOR CREELER this procedure are in the results section. BASIC METABOLIC PANEL Routine 03/13/2020 5:09 Re sults for (NA, K, CL, CO2, AM INSTRUCTOR CREELER this proced ure GLUCOSE, BUN, are in the CREATININE, CA) results section. FREE T4 Routine 03/13/2020 5:09 Results for AM INSTRUCTOR CREELER this procedure are in the results section. MAGNESIUM Routine 03/13/2020 5:09 Results for AM INSTRUCTOR CREELER this procedure are in the results section. PHOSPHORUS Routine 03/13/2020 5:09 Results for AM INSTRUCTOR CREELER this procedure are in the results section. CT ABDOMEN PELVIS W JOSE A 03/13/2020 3:02 Acute cholecystit is Results for CONTRAST AM INSTRUCTOR CREELER this procedure are in the results section. FECAL LEUKOCYTES Routine 03/12/2020 8:15 Results for AM INSTRUCTOR CREELER this procedure are in the results section. OCCULT (GUAIAC) BLOOD Routine 03/12/2020 8:15 Re sults for AM INSTRUCTOR CREELER this procedure are in the results section. FECES CULTURE Routine 03/12/2020 8:15 AM INSTRUCTOR CREELER HIV 1/2 AG-AB WITH Add-on 03/12/2020 4:04 Resul ts for REFLEX AM INSTRUCTOR CREELER this procedure are in the results section. CBC WITH DIFF Routine 03/12/2020 4:04 Results fo r AM INSTRUCTOR CREELER this procedure are in the results section. COMP. METABOLIC PANEL Routine 03/12/2020 4:04 Re sults for (59825) AM INSTRUCTOR CREELER this procedure are in the results section. PROTHROMBIN TIME / INR Routine 03/11/2020 5:59 R esults for AM INSTRUCTOR CREELER this procedure are in the results section. CBC WITH DIFF Routine 03/11/2020 5:59 Results fo r AM INSTRUCTOR CREELER this procedure are in the results section. COMP. METABOLIC PANEL Routine 03/11/2020 5:59 Re sults for (15590) AM INSTRUCTOR CREELER this procedure are in the results section. LAB ONLY COVID Routine 03/11/2020 12:53 Acute cholecystitis Re sults for INTERPRETATION AM INSTRUCTOR CREELER this procedur e are in the results section. COVID-19 (ID NOW RAPID STAT 03/11/2020 12:53 Acute cholecys titis Results for TESTING) AM INSTRUCTOR CREELER this procedure are in the results section. US GALL BLADDER STAT 03/11/2020 12:04 Epigastric burning Re sults for AM INSTRUCTOR CREELER sensation this procedure Epigastric abdominal are in the pain results section. URINALYSIS STAT 03/10/2020 9:36 Epigastric burning Resul ts for PM INSTRUCTOR CREELER sensation this procedure are in the results section. GLYCOSYLATED JOSE A Add-On 03/10/2020 9:36 Results for HEMOGLOBIN (A1C) PM INSTRUCTOR CREELER this proced ure are in the results section. CBC WITH DIFF STAT 03/10/2020 9:36 Epigastric burning Resu lts for PM INSTRUCTOR CREELER sensation this procedure are in the results section. LIPID PANEL JOSE A Add-On 03/10/2020 9:36 Results for ([id number])(TOTAL PM INSTRUCTOR CREELER this procedure CHOLESTEROL, are in the TRIGLYCERIDES, HDL) results section. COMP. METABOLIC PANEL STAT 03/10/2020 9:36 Epigastric burn ing Results for ([id number]) PM INSTRUCTOR CREELER sensation this procedure are in the results section. THYROID STIMULATING JOSE A Add-On 03/10/2020 9:36 Resu lts for HORMONE PM INSTRUCTOR CREELER this procedure are in the results section. MAGNESIUM JOSE A Add-On 03/10/2020 9:36 Results for PM INSTRUCTOR CREELER this procedure are in the results section. LIPASE STAT 03/10/2020 9:36 Epigastric burning Resul ts for PM INSTRUCTOR CREELER sensation this procedure are in the results section. NOTICE OF PRIVACY Routine 03/10/2020 9:27 PRACTICES PM INSTRUCTOR CREELER CONSENT/REFUSAL FOR Routine 03/10/2020 9:23 DIAGNOSIS AND PM INSTRUCTOR CREELER TREATMENT CONSENT/REFUSAL FOR Routine 03/10/2020 9:23 DIAGNOSIS AND PM INSTRUCTOR CREELER TREATMENT CONSENT/REFUSAL FOR Routine 03/10/2020 9:23 DIAGNOSIS AND PM INSTRUCTOR CREELER TREATMENT HOSPITAL ADMISSION Routine 03/10/2020 12:01 AM INSTRUCTOR CREELER HOSPITAL ADMISSION Routine 03/10/2020 12:01 AM INSTRUCTOR CREELER documented in this encounter Results BASIC METABOLIC PANEL (NA, K, CL, CO2, GLUCOSE, BUN, CREATININE, CA) (03/14/2020 4:32 AM INSTRUCTOR CREELER) Pathologist Sig nature NA 140 135 - 145 [facility] mmol/L SERVICES K 3.9 3.5 - 5.0 [facility] mmol/L SERVICES CL 105 98 - 108 mmol/L [facility] SERVICES CO2 TOTAL 29 23 - 31 mmol/L [facility] AGAP 6 2 - 16 [facility] BUN 5 (L) 7 - 23 mg/dL [facility] GLUCOSE 114 (H) 70 - 110 mg/dL [facility] CREATININE 0.80 0.60 - 1.25 [facility] mg/dL SERVICES CALCIUM 8.4 (L) 8.6 - 10.6 [facility] mg/dL SERVICES eGFR Calculation 112.0 mL/min/1.73m2 [facility] (Non- SERVICES [place]ian) eGFR Calculation 135.8 mL/min/1.73m2 [facility] () SERVICES Specimen Blood - ARM, LEFT Narrative Performed At Association of Glomerular Filtration Rate (GFR) and St aging [facility] SERVICES of Kidney Disease* + + +------- ------ + | GFR (mL/min/1.73 m2) | With Kidney Damage | Wi thout Kidney Damage + + +------- ------ + | >90 | Stage one | Normal + + +------- ------ + | 60-89 | Stage two | Decreased GFR + + +------- ------ + | 30-59 | Stage three | Stage three + + +------- ------ + | 15-29 | Stage four | Stage four + + +------- ------ + | <15 (or dialysis) | Stage five | Stage five + + +------- ------ + *Each stage assumes the associated GFR level has been in effect for at least three months. Stages 1 to 5, wit h or without kidney disease, indicate chronic kidney disease. Notes: Determination of stages one and two (with eGFR >59mL/min/1.73 m2) requires estimation of kidney damag e for at least three months as defined by structural or func tional abnormalities of the kidney, manifested by either: Pathological abnormalities or Markers of kidney damage (including abnormalities in the composition of the blo od or urine or abnormalities in imaging tests) . Performing Organization Address City/[facility]/Zipcode Phone Number [facility] CLIA: [id number] [place], [place] [address] [place] [address] MAGNESIUM (03/14/2020 4:32 AM INSTRUCTOR CREELER) Pathologist Sig nature MAGNESIUM 1.9 1.7 - 2.4 mg/dL [facility] SERVICES Specimen Blood - ARM, LEFT Performing Organization Address [facility] Phone Number [facility] CLIA: [id number] [place] [address] [place] [address] CBC WITH DIFF (03/14/2020 4:32 AM INSTRUCTOR CREELER) WBC 14.20 (H) 4.20 - 10.70 [facility] 10*3/L SERVICES RBC 4.06 (L) 4.26 - 5.52 [facility] 10*6/L SERVICES HGB 12.6 12.2 - 16.4 [facility] g/dL SERVICES HCT 36.9 (L) 38.4 - 49.3 % [facility] MCV 90.9 81.7 - 95.6 fL [facility] MCH 31.0 26.1 - 32.7 pg [facility] MCHC 34.1 31.2 - 35.0 [facility] g/dL SERVICES RDW-SD 41.2 38.5 - 51.6 fL [facility] RDW-CV 12.3 12.1 - 15.4 % [facility] PLT 296 150 - 328 [facility] 10*3/L SERVICES MPV 10.0 9.8 - 13.0 fL [facility] NRBC/100 WBC 0.0 0.0 - 10.0 [facility] /100 WBCs SERVICES NRBC x10^3 <0.01 10*3/L [facility] GRAN MAT (NEUT) % 66.7 % [facility] IMM GRAN % 6.30 % [facility] LYMPH % 12.0 % [facility] MONO % 13.4 % [facility] EOS % 0.4 % [facility] BASO % 1.2 % [facility] GRAN MAT 9.46 (H) 1.99 - 6.95 [facility] x10^3(ANC) 10*3/uL SERVICES IMM GRAN x10^3 0.90 (H) 0.00 - 0.06 [facility] 10*3/uL SERVICES LYMPH x10^3 1.71 1.09 - 3.23 [facility] 10*3/uL SERVICES MONO x10^3 1.90 (H) 0.36 - 1.02 [facility] 10*3/uL SERVICES EOS x10^3 0.06 0.06 - 0.53 [facility] 10*3/uL SERVICES BASO x10^3 0.17 (H) 0.01 - 0.09 [facility] 10*3/uL SERVICES BANDS Increased (A) [facility] Specimen Blood - ARM, LEFT Performing Organization Address City/State/Zipcode Phone Number [facility] CLIA: [id number] [place] [address] [place], [place] [address] URINALYSIS (03/13/2020 8:54 PM INSTRUCTOR CREELER) Pathologist Sig nature APPEARANCE Hazy (A) Clear [facility] COLOR Yellow Yellow [facility] PH 7.0 4.8 - 8.0 [facility] SP GRAVITY 1.012 1.003 - 1.030 [facility] GLU U QUAL Normal Normal [facility] BLOOD Negative Negative [facility] KETONES Negative Negative [facility] PROTEIN Negative Negative [facility] UROBILIN Normal Normal [facility] BILIRUBIN Negative Negative [facility] NITRITE Negative Negative [facility] LEUK ANTHONY Negative Negative [facility] RBC/HPF 8 (H) 0 - 3 HPF [facility] WBC/HPF 1 0 - 5 HPF [facility] BACTERIA Negative Negative [facility] AMORPHOUS Rare Rare HPF [facility] Specimen Urine - URINE, CLEAN CATCH Performing Organization Address [facility] Phone Number [facility] CLIA: [id number] [place] [address] [place] [address] GIARDIA CRYPTOSPORIDIUM AG SCR (03/13/2020 6:52 PM INSTRUCTOR CREELER) Pathologist Sig nature Giardia antigen screen Negative Negative [facility] Cryptosporidium Antigen Negative Negative [facility] Screen SERVICES Specimen Stool - ANAL Performing Organization Address [facility] Phone Number [facility] CLIA: [id number] [place] [address] [place] [address] CLOSTRIDIUM DIFFICILE TOXIN (03/13/2020 6:27 PM INSTRUCTOR CREELER) Pathologist Sig nature Clostridioides Negative Negative [facility] (Clostridium) difficile SERVICES Specimen Stool - ANAL Performing Organization Address [facility] Phone Number [facility] CLIA: [id number] [place] [address] [place] [address] ALPHA FETOPROTEIN (03/13/2020 5:09 AM INSTRUCTOR CREELER) Pathologist Sig nature AFP 1.0 <=7.5 ng/mL [facility] Specimen Blood - ARM, LEFT Narrative Performed At Biotin has been reported to cause a negative bias, int erpret [facility] results relative to patient's use of biotin. Performing Organization Address [facility] Phone Number [facility] CLIA: [id number] [place] [address] [place] [address] TOTAL BETA HCG ASSAY (03/13/2020 5:09 AM INSTRUCTOR CREELER) Pathologist [facility] [employer] BETA HCG <2.39 Non- female [facility] SERVI ARMANDO and male patients: <5 mIU/mL Specimen Blood - ARM, LEFT Narrative Performed At [facility] Gestational Age Rang e (mIU/mL) 1-10 Weeks 4 [id number] 11-15 Weeks 11 [phone] 16-22 Weeks 74 [phone] 23-40 Weeks 15 [phone] Bi[employer] has been reported to cause a negative bias, int erpret results relative to patient's use of biotin. Performing Organization Address City/State/Zipcode Phone Number [facility] CLIA: [id number] [place] [address] [place] [address] FREE T4 (03/13/2020 5:09 AM INSTRUCTOR CREELER) [facility] [employer] FREE T4 1.32 0.78 - 2.20 ng/dL: [facility] SERVIC ES Specimen Blood - ARM, LEFT Performing Organization Address [facility] Phone Number [facility] CLIA: [id number] [place] [address] [place] [address] PHOSPHORUS (03/13/2020 5:09 AM INSTRUCTOR CREELER) [facility] [employer] PHOSPHORUS 4.1 2.5 - 5.0 mg/dL [facility] Specimen Blood - ARM, LEFT Performing Organization Address [facility] Phone Number [facility] CLIA: [id number] [place] [address] [place] [address] MAGNESIUM (03/13/2020 5:09 AM INSTRUCTOR CREELER) [facility] [employer] MAGNESIUM 1.8 1.7 - 2.4 mg/dL [facility] Specimen Blood - ARM, LEFT Performing Organization Address [facility] Phone Number [facility] CLIA: [id number] [place] [address] [place] [address] BASIC METABOLIC PANEL (NA, K, CL, CO2, GLUCOSE, BUN, CREATININE, CA) (03/13/2020 5:09 AM INSTRUCTOR CREELER) Pathologist [facility] [employer] NA 138 135 - 145 [facility] mmol/L SERVICES K 4.5 3.5 - 5.0 [facility] mmol/L SERVICES CL 105 98 - 108 mmol/L [facility] CO2 TOTAL 27 23 - 31 mmol/L [facility] AGAP 6 2 - 16 [facility] BUN 7 7 - 23 mg/dL [facility] GLUCOSE 88 70 - 110 mg/dL [facility] CREATININE 0.84 0.60 - 1.25 [facility] mg/dL SERVICES CALCIUM 8.2 (L) 8.6 - 10.6 [facility] mg/dL SERVICES eGFR Calculation 105.9 mL/min/1.73m2 [facility] (Non- SERVICES [place]ian) eGFR Calculation 128.3 mL/min/1.73m2 [facility] () SERVICES Specimen Blood - ARM, LEFT Narrative Performed At Association of Glomerular Filtration Rate (GFR) and St aging [facility] SERVICES of Kidney Disease* + + +------- ------ + | GFR (mL/min/1.73 m2) | With Kidney Damage | Wi thout Kidney Damage + + +------- ------ + | >90 | Stage one | Normal + + +------- ------ + | 60-89 | Stage two | Decreased GFR + + +------- ------ + | 30-59 | Stage three | Stage three + + +------- ------ + | 15-29 | Stage four | Stage four + + +------- ------ + | <15 (or dialysis) | Stage five | Stage five + + +------- ------ + *Each stage assumes the associated GFR level has been in effect for at least three months. Stages 1 to 5, wit h or without kidney disease, indicate chronic kidney disease. Notes: Determination of stages one and two (with eGFR >59mL/min/1.73 m2) requires estimation of kidney damag e for at least three months as defined by structural or func tional abnormalities of the kidney, manifested by either: Pathological abnormalities or Markers of kidney damage (including abnormalities in the composition of the blo od or urine or abnormalities in imaging tests) . Performing Organization Address City/State/Zipcode Phone Number [facility] CLIA: [id number] [place], [place] [id number] [address] [place] [address] CT ABDOMEN PELVIS W CONTRAST (03/13/2020 3:02 AM INSTRUCTOR CREELER) Specimen Impressions Performed At PACS/VR/DOSE No definite acute process identified. Liquid contents of the large bowel is of ten related to diarrhea, however there is no evidence of colitis. Questionable thickening of the bladder out of proporti on to the degree of distention. Consider evaluation for cyst itis. Narrative Performed At This result has an attachment that is no t available. EXAM: CT ABDOMEN AND PELVIS WITH CONTRAST PACS/VR/DOSE HISTORY: Abdominal pain COMPARISON: None available. TECHNIQUE AND FINDINGS: Contiguous axial imaging from the level of the lung bases through the pubic symphysis was performed after the uncomplicated administration of intravenous contrast. Coronal and sa gittal reconstructions were obtained. Auto mA and/or iterat claudia reconstruction were used to reduce radiation dose. FINDINGS: LOWER THORAX: The lungs bases are clear. LIVER: No focal lesion, normal contour. GALLBLADDER AND BILIARY TREE: Mild intrahepatic biliar y ductal dilation, no extrahepatic dilation. Gallbladder is moderately diste nded with no radiopaque gallstones identified. SPLEEN: Mild splenomegaly. PANCREAS: Normal. ADRENAL GLANDS: Normal. KIDNEYS: Normal enhancement and no hydronephrosis, GI TRACT: No dilation or wall thickening. Normal appen johnny. Liquid fecal material noted throughout the large bowel, finding gen erally seen in the setting of diarrhea. PERITONEUM AND RETROPERITONEUM: No free air or fluid. LYMPH NODES: Mildly enlarged external iliac chain lymp h nodes, largest on the right measuring up to 1.2 cm short axis. PELVIS/BLADDER: Mildly distended urinary bladder with mild circumferential mural thickening. Prostate and seminal vesicles appear normal. VESSELS: Embolic coil material is seen vertically orie nted along the anterior surface of left psoas muscle. Vessels appear otherwise normal. BONES AND SOFT TISSUES: No suspicious lytic or sclerot ic bony lesions. Procedure Note [facility], Radiant Results Inft User - 2019 11:58 AM INSTRUCTOR CREELER EXAM: CT ABDOMEN AND PELVIS WITH CONTRAST HISTORY: Abdominal pain COMPARISON: None available. TECHNIQUE AND FINDINGS: Contiguous axial imaging from the level of the lung bases through the pubic symphysis was pe rformed after the uncomplicated administration of intravenous contrast. Coronal and sagittal reconstructions were obtained. Auto mA and/or iterative reconstruction were used to reduce radiation dose. FINDINGS: LOWER THORAX: The lungs bases are clear. LIVER: No focal lesion, normal contour. GALLBLADDER AND BILIARY TREE: Mild intra hepatic biliary ductal dilation, no extrahepatic dilation. Gallbladder is mo derately distended with no radiopaque gallstones identified. SPLEEN: Mild splenomegaly. PANCREAS: Normal. ADRENAL GLANDS: Normal. KIDNEYS: Normal enhancement and no hydro nephrosis, GI TRACT: No dilation or wall thickening . Normal appendix. Liquid fecal material noted throughout the large rosalinda l, finding generally seen in the setting of diarrhea. PERITONEUM AND RETROPERITONEUM: No free air or fluid. LYMPH NODES: Mildly enlarged external il iac chain lymph nodes, largest on the right measuring up to 1.2 cm short a xis. PELVIS/BLADDER: Mildly distended urinary bladder with mild circumferential mural thickening. Prostate and seminal v esicles appear normal. VESSELS: Embolic coil material is seen v ertically oriented along the anterior surface of left psoas muscle. V essels appear otherwise normal. BONES AND SOFT TISSUES: No suspicious ly tic or sclerotic bony lesions. IMPRESSION No definite acute process identified. Liquid contents of the large bowel is of ten related to diarrhea, however there is no evidence of colitis. Questionable thickening of the bladder o ut of proportion to the degree of distention. Consider evaluation for cyst itis. Performing Organization Address City/[facility] Phone Number PACS/VR/DOSE FECAL LEUKOCYTES (03/12/2020 8:15 AM INSTRUCTOR CREELER) Pathologist Sig nature Fecal Leukocytes Negative Negative [facility] Specimen Stool - ANAL Performing Organization Address [facility] Phone Number [facility] CLIA: [id number] [place] [address] [place] [address] OCCULT (GUAIAC) BLOOD (03/12/2020 8:15 AM INSTRUCTOR CREELER) Pathologist Sig nature Occult (guaiac) Positive (A) Negative [facility] Blood SERVICES Specimen Stool - ANAL Performing Organization Address [facility] Phone Number [facility] CLIA: [id number] [place] [address] [place] [address] HIV 1/2 AG-AB WITH REFLEX (03/12/2020 4:04 AM INSTRUCTOR CREELER) Pathologist Sig nature HIV 1/2 Ag-Ab with Negative Negative [facility] LABORATORY HIV Semi-quantitative 0.08 [facility] Specimen Blood - ARM, LEFT Narrative Performed At Non-reactive for HIV-1 antigen and HIV-1/HIV-2 [facility] antibodies. No laboratory evidence of HIV infection. Repeat in 2-4 weeks if acute HIV infection is suspected. Performing Organization Address [facility] Phone Number [facility] CLIA: [id number] [place] [address] COMP. METABOLIC PANEL ([id number]) (03/12/2020 4:04 AM INSTRUCTOR CREELER) Pathologist [facility] nature NA 140 135 - 145 [facility] mmol/L [facility] K 5.3 (H) 3.5 - 5.0 [facility] mmol/L [facility] CL 104 98 - 108 mmol/L [facility] CO2 TOTAL 29 23 - 31 mmol/L [facility] AGAP 7 2 - 16 [facility] BUN 6 (L) 7 - 23 mg/dL [facility] GLUCOSE 109 70 - 110 mg/dL [facility] CREATININE 0.89 0.60 - 1.25 [facility] mg/dL [facility] TOTAL BILI 0.4 0.1 - 1.1 mg/dL [facility] CALCIUM 9.0 8.6 - 10.6 [facility] mg/dL [facility] T PROTEIN 5.3 (L) 6.3 - 8.2 g/dL [facility] ALBUMIN 3.0 (L) 3.5 - 5.0 g/dL [facility] ALK PHOS 73 34 - 122 U/L [facility] ALTv 18 5 - 50 U/L [facility] AST(SGOT) 16 13 - 40 U/L [facility] eGFR Calculation 99.1 mL/min/1.73m2 [facility] ([facility] LABORATORY Bel[place]ian) eGFR Calculation 120.1 mL/min/1.73m2 [facility] () [facility] Specimen Blood - ARM, LEFT Narrative Performed At Association of Glomerular Filtration Rate (GFR) [facility] and Staging of Kidney Disease* + + +- + | GFR (mL/min/1.73 m2) | With Kidney Damage | Without Kidney Damage + + +- + | >90 | Stage one | Normal + + +- + | 60-89 | Stage two | Decreased GFR + + +- + | 30-59 | Stage three | Stage three + + +- + | 15-29 | Stage four | Stage four + + +- + | <15 (or dialysis) | Stage five | Stage five + + +- + *Each stage assumes the associated GFR level has been in effect for at least three months. Stages 1 to 5, with or without kidney disease, indicate chronic kidney disease. Notes: Determination of stages one and two (with eGFR >59mL/min/1.73 m2) requires estimation of kidney damage for at least three months as defined by structural or functional abnormalities of the kidney, manifested by either: Pathological abnormalities or Markers of kidney damage (including abnormalities in the composition of the blood or urine or abnormalities in imaging tests). Performing Organization Address City/State/Zipcode Phone Number [facility] CLIA: [id number] [place] [address] CBC WITH DIFF (03/12/2020 4:04 AM INSTRUCTOR CREELER) Pathologist Sig nature WBC 13.73 (H) 4.20 - 10.70 [facility] 10*3/L [facility] RBC 3.96 (L) 4.26 - 5.52 [facility] 10*6/L [facility] HGB 12.3 12.2 - 16.4 [facility] g/dL [facility] HCT 37.5 (L) 38.4 - 49.3 % [facility] MCV 94.7 81.7 - 95.6 fL [facility] MCH 31.1 26.1 - 32.7 pg [facility] MCHC 32.8 31.2 - 35.0 [facility] g/dL [facility] RDW-SD 43.2 38.5 - 51.6 fL [facility] RDW-CV 12.4 12.1 - 15.4 % [facility] PLT 213 150 - 328 [facility] 10*3/L [facility] MPV 9.7 (L) 9.8 - 13.0 fL [facility] NRBC/100 WBC 0.0 0.0 - 10.0 /100 [facility] WBCs [facility] NRBC x10^3 <0.01 10*3/L [facility] GRAN MAT (NEUT) % 67.0 % [facility] IMM GRAN % 0.90 % [facility] LYMPH % 15.6 % [facility] MONO % 15.4 % [facility] EOS % 0.5 % [facility] BASO % 0.6 % [facility] GRAN MAT x10^3(ANC) 9.21 (H) 1.99 - 6.95 [facility] 10*3/uL [facility] IMM GRAN x10^3 0.12 (H) 0.00 - 0.06 [facility] 10*3/uL [facility] LYMPH x10^3 2.14 1.09 - 3.23 [facility] 10*3/uL [facility] MONO x10^3 2.11 (H) 0.36 - 1.02 [facility] 10*3/uL [facility] EOS x10^3 0.07 0.06 - 0.53 [facility] 10*3/uL [facility] BASO x10^3 0.08 0.01 - 0.[address]/uL [facility] Specimen Blood - ARM, LEFT Performing Organization Address City/State/Zipcode Phone Number [facility] CLIA: [id number] [place] [address] COMP. METABOLIC PANEL ([id number]) (03/11/2020 5:59 AM INSTRUCTOR CREELER) Pathologist Sig nature NA 134 (L) 135 - 145 [facility] mmol/L [facility] K 4.7 3.5 - 5.0 [facility] mmol/L [facility] CL 103 98 - 108 mmol/L [facility] CO2 TOTAL 26 23 - 31 mmol/L [facility] AGAP 5 2 - 16 [facility] BUN 12 7 - 23 mg/dL [facility] GLUCOSE 134 (H) 70 - 110 mg/dL [facility] CREATININE 0.76 0.60 - 1.25 [facility] mg/dL [facility] TOTAL BILI 0.5 0.1 - 1.1 mg/dL [facility] CALCIUM 8.5 (L) 8.6 - 10.6 [facility] mg/dL [facility] T PROTEIN 5.3 (L) 6.3 - 8.2 g/dL [facility] ALBUMIN 2.9 (L) 3.5 - 5.0 g/dL [facility] ALK PHOS 65 34 - 122 U/L [facility] ALTv 23 5 - 50 U/L [facility] AST(SGOT) 27 13 - 40 U/L [facility] eGFR Calculation 118.9 mL/min/1.73m2 [facility] ([facility] LABORATORY Bel[place]ian) eGFR Calculation 144.1 mL/min/1.73m2 [facility] () [facility] Specimen Blood - LINE, VENOUS Narrative Performed At [facility] of Glomerular Filtration Rate (GFR) [facility] and Staging of Kidney Disease* + + +- + | GFR (mL/min/1.73 m2) | With Kidney Damage | Without Kidney Damage + + +- + | >90 | Stage one | Normal + + +- + | 60-89 | Stage two | Decreased GFR + + +- + | 30-59 | Stage three | Stage three + + +- + | 15-29 | Stage four | Stage four + + +- + | <15 (or dialysis) | Stage five | Stage five + + +- + *Each stage assumes the associated GFR level has been in effect for at least three months. Stages 1 to 5, with or without kidney disease, indicate chronic kidney disease. Notes: Determination of stages one and two (with eGFR >59mL/min/1.73 m2) requires estimation of kidney damage for at least three months as defined by structural or functional abnormalities of the kidney, manifested by either: Pathological abnormalities or Markers of kidney damage (including abnormalities in the composition of the blood or urine or abnormalities in imaging tests). Performing Organization Address City/State/Zipcode Phone Number [facility] CLIA: [id number] [place] [address] CBC WITH DIFF (03/11/2020 5:59 AM INSTRUCTOR CREELER) Pathologist [facility] nature WBC 16.08 (H) 4.20 - 10.70 [facility] 10*3/L [facility] RBC 3.74 (L) 4.26 - 5.52 [facility] 10*6/L [facility] HGB 11.6 (L) 12.2 - 16.4 g/dL [facility] HCT 34.7 (L) 38.4 - 49.3 % [facility] MCV 92.8 81.7 - 95.6 fL [facility] MCH 31.0 26.1 - 32.7 pg [facility] MCHC 33.4 31.2 - 35.0 g/dL [facility] RDW-SD 41.4 38.5 - 51.6 fL [facility] RDW-CV 12.2 12.1 - 15.4 % [facility] PLT 206 150 - 328 [facility] 10*3/L [facility] MPV 10.4 9.8 - 13.0 fL [facility] NRBC/100 WBC 0.0 0.0 - 10.0 /100 [facility] WBCs [facility] NRBC x10^3 <0.01 10*3/L [facility] SEG % 70 33 - 76 % [facility] BAND % 10 (H) 0 - 1 % [facility] LYMPH % 8 (L) 14 - 54 % [facility] MONO % 12 (H) 0 - 4 % [facility] ANC 12.87 (H) 1.99 - 6.95 [facility] 10*3/uL HOSPITAL LABORATORY TOXIC CHANGES Present (A) [facility] Specimen Blood - LINE, VENOUS Performing Organization Address [facility] Phone Number [facility] CLIA: [id number] [place] [address] PROTHROMBIN TIME / INR (03/11/2020 5:59 AM INSTRUCTOR CREELER) PROTIME PATIENT 15.8 (H) 12.0 - 14.7 [facility] Seconds [facility] INR 1.3Comment: Normal [facility] INR <1.1; Warfarin [facility] Therapeutic range LABORATORY 2.0 to 3.0 or 2.5 to 3.5, depending upon the indications. Specimen Blood - LINE, VENOUS Performing Organization Address [facility] Phone Number [facility] CLIA: [id number] [place] [address] LAB ONLY COVID INTERPRETATION (03/11/2020 12:53 AM INSTRUCTOR CREELER) [facility] COVID DMT Interpretation/Recommendations: [facility] LABO RAT[facility] Interpretation SERVICES Molecular NAAT Tests for Active Infection with the JUAN LUIS S-CoV-2 Virus: This result indicates that t he patient has tested negative on one occasion for the SARS-CoV-2 virus that causes COVID-19 illness. This most likely indicates that the patient does not have an active infe ction with the SARS-CoV-2 vi dar. However, infection is not completely ruled out as the false negative rate for molecular NAAT testing using a nasopharyngeal sample can be up to 30%, mostly dependent on the timing of sample collect ion in relation to illness onset and any deficiencies in sampling techniques. If the patient continues to have persistent or worsening symptoms concerning for COVID-19 illnes s, a repeat NAAT test (PCR, Rapid ID Now, etc.) should be performed, at which time the SARS-CoV-2 virus - if present - may have reached a detectable viral load (usually peaking by the end of the first week of symptoms). Tests for IgM and/or IgG Antibodies to SARS-CoV-2 Viru s: Testing for IgM and IgG anti bodies 1-3 weeks after illness onset will indicate whether the patient has produced antibodies to the virus. At this time, it is not known if the production of antibodies - s pecifically IgG antibodies - indicates whether the patient is immune to future infections with the SARS-CoV-2 virus. Interpretation Result Comments: These interpretation comment s are based upon all COVID-19 testing the patient has had at [facility], including molecular NAAT testing (more commonly known as PCR testing and Rapid ID Now testing) and antibody testing. It does not take i nto account any testing that a patient has had outside of the [facility] medical record. COVID Results SARS-CoV-2 Rapid ID NOW (no units) [facility] Date Value SERVICES 03/11/2020 Not Detected Specimen Swab - NASOPHARYNGEAL SWAB Performing Organization Address City/State/Zipcode Phone Number [facility] CLIA: [id number] [place] [address] [place] [address] COVID-19 (ID NOW RAPID TESTING) (03/11/2020 12:53 AM INSTRUCTOR CREELER) SARS-CoV-2 Rapid ID Not Detected Not Detected [facility] LABORATORY Specimen Swab - NASOPHARYNGEAL SWAB Narrative Performed At [facility] COVID-19 Assay is an isothermal nucleic [facility] acid amplification test intended for the qualitative detection of nucleic acid from SARS-CoV-2 viral RNA in nasopharyngeal ([employer]) specimens. It is used under Emergency Use Authorization (EUA) by FDA. The limit of detection (LOD) of the assay is 125 Genome Equivalents/mL. A positive result is indicative of the presence of SARS-CoV-2 RNA. Clinical correlation with patient history and other diagnostic information is necessary to determine patient infection status. A negative (Not Detected) result does not preclude SARS-CoV-2 infection. In patients with clinical symptoms and other tests that are consistent with SARS-CoV-2 infection, negative results should be treated as presumptive negative and a new specimen should be tested with alternative PCR molecular test. Invalid: Please collect a new specimen for repeat patient testing if clinically indicated. Performing Organization Address City/State/Zipcode Phone Number [facility] CLIA: [id number] [place] [address] LABORATORY [address] [facility] GALL BLADDER (03/11/2020 12:04 AM INSTRUCTOR CREELER) Specimen Impressions Performed At PACS/VR/DOSE Distended gallbladder with no definite s hadowing stones or mural thickening. Minimal internal echogenic m aterial may represent sludge or small stones. Negative sonographic Montano's sign. Find ings are unlikely to represent acute cholecystitis. Preliminary Report Dictated by Resident: Stevie Romero MD., have reviewe d this study and agree with the above report. Narrative Performed At This result has an attachment that is no t available. RIGHT UPPER QUADRANT ULTRASOUND PACS/VR/DOSE HISTORY: rule out cholecystitis COMPARISON: None. TECHNIQUE: Focused Real-time grayscale and color Doppl er right upper quadrant ultrasound. FINDINGS: LIVER: Normal in size and echo-texture. No focal hepat ic lesion. Normal hepatopetal flow within the main portal vein. GALLBLADDER: Hydropic gallbladder. Isoechoic debris la yers dependently within the gallbladder lumen, likely represent choleli thiasis. Small volume pericholecystic fluid. No sonographic Montano's sign. T he common bile duct measures 5 mm. PANCREAS: Visualized portions of the pancreatic head, neck and body appear unremarkable. RIGHT KIDNEY: The visualized portion of the right kidn ey is unremarkable. Procedure Note [facility], Radiant Results Inft User - 2019 12:25 AM INSTRUCTOR CREELER RIGHT UPPER QUADRANT ULTRASOUND HISTORY: rule out cholecystitis COMPARISON: None. TECHNIQUE: Focused Real-time grayscale a nd color Doppler right upper quadrant ultrasound. FINDINGS: LIVER: Normal in size and echo-texture. No focal hepatic lesion. Normal hepatopetal flow within the main portal vein. GALLBLADDER: Hydropic gallbladder. Isoec hoic debris layers dependently within the gallbladder lumen, likely rep resent cholelithiasis. Small volume pericholecystic fluid. No sonographic Mu rphy's sign. The common bile duct measures 5 mm. PANCREAS: Visualized portions of the blackmon creatic head, neck and body appear unremarkable. RIGHT KIDNEY: The visualized portion of the right kidney is unremarkable. IMPRESSION Distended gallbladder with no definite s hadowing stones or mural thickening. Minimal internal echogenic m aterial may represent sludge or small stones. Negative sonographic Mayuri y's sign. Findings are unlikely to represent acute cholecystitis. Preliminary Report Dictated by Resident: Stevie Romero MD., have reviewed this study and agree with the above report. Performing Organization Address [facility] Phone Number PACS/VR/DOSE THYROID STIMULATING HORMONE (03/10/2020 9:36 PM INSTRUCTOR CREELER) Pathologist Sig nature TSH 5.59 (H) 0.45 - 4.70 mIU/L [facility] Specimen Blood - VENOUS Performing Organization Address [facility] Phone Number [facility] CLIA: [id number] [place] [address] MAGNESIUM (03/10/2020 9:36 PM INSTRUCTOR CREELER) Pathologist Sig nature MAGNESIUM 2.0 1.7 - 2.4 mg/dL [facility] Specimen Blood - VENOUS Performing Organization Address [facility] Phone Number [facility] CLIA: [id number] [place] [address] LIPID PANEL ([id number])(TOTAL CHOLESTEROL, TRIGLYCERIDES, HDL) (03/10/2020 9:36 PM INSTRUCTOR CREELER) Pathologist Sig nature CHOL 135 120 - 200 mg/dL [facility] HDL 52 >40 mg/dL [facility] HDLC RATIO 2.6 <=5.0 [facility] TRIG 81 30 - 170 mg/dL [facility] LDL CHOL 67 <=160 mg/dL [facility] VLDL 16 5 - 60 mg/dL [facility] Specimen Blood - VENOUS Performing Organization Address [facility] Phone Number [facility] CLIA: [id number] [place] [address] GLYCOSYLATED HEMOGLOBIN (A1C) (03/10/2020 9:36 PM INSTRUCTOR CREELER) Pathologist Sig nature HGB A1C 4.8 4.0 - 6.0 % [facility] Specimen Blood - VENOUS Narrative Performed At %A1C (NGSP) Interpretation (ADA) [facility] 4.8-5.6 Normal or (Non-Diabetic Ra nge) 5.7-6.4 Increased Risk (Pre-Diabet ic) >6.5 Diabetes Indicated Performing Organization Address City/[facility] Phone Number [facility] CLIA: [id number] [place] [address] Urinalysis (03/10/2020 9:36 PM INSTRUCTOR CREELER) Pathologist Sig nature APPEARANCE Clear Clear [facility] COLOR Yellow Yellow [facility] PH 6.0 4.8 - 8.0 [facility] SP GRAVITY 1.012 1.003 - 1.030 [facility] GLU U QUAL Normal Normal [facility] BLOOD Negative Negative [facility] KETONES Negative Negative [facility] PROTEIN Negative Negative [facility] UROBILIN Normal Normal [facility] BILIRUBIN Negative Negative [facility] NITRITE Negative Negative [facility] LEUK ANTHONY Negative Negative [facility] RBC/HPF 2 0 - 3 HPF [facility] WBC/HPF 1 0 - 5 HPF [facility] BACTERIA Few (A) Negative [facility] SQ EPITH <1 HPF [facility] Specimen Urine - URINE, CLEAN CATCH Performing Organization Address City/[facility]/Zipcode Phone Number [facility] CLIA: [id number] [place] [address] Lipase, Serum (03/10/2020 9:36 PM INSTRUCTOR CREELER) Pathologist Sig nature LIPASE 105 0 - 220 U/L [facility] Specimen Blood - VENOUS Performing Organization Address City/[facility]/Zipcode Phone Number [facility] CLIA: [id number] [place] [address] CBC with Differential (03/10/2020 9:36 PM INSTRUCTOR CREELER) WBC 17.59 (H) 4.20 - 10.70 [facility] 10*3/L [facility] RBC 4.19 (L) 4.26 - 5.52 [facility] 10*6/L [facility] HGB 13.2 12.2 - 16.4 [facility] g/dL [facility] HCT 38.8 38.4 - 49.3 % [facility] MCV 92.6 81.7 - 95.6 [facility] LABORATORY MCH 31.5 26.1 - 32.7 [facility] LABORATORY MCHC 34.0 31.2 - 35.0 [facility] g/dL [facility] RDW-SD 41.8 38.5 - 51.6 [facility] LABORATORY RDW-CV 12.2 12.1 - 15.4 % [facility] PLT 212 150 - 328 [facility] 10*3/L [facility] MPV 9.7 (L) 9.8 - 13.0 [facility] LABORATORY NRBC/100 WBC 0.0 0.0 - 10.0 [facility] /100 WBCs [facility] NRBC x10^3 <0.01 10*3/L [facility] GRAN MAT (NEUT) % 77.2 % [facility] IMM GRAN % 0.90 % [facility] LYMPH % 9.4 % [facility] MONO % 11.5 % [facility] EOS % 0.5 % [facility] BASO % 0.5 % [facility] GRAN MAT 13.59 (H) 1.99 - 6.95 [facility] x10^3(ANC) 10*3/uL HOSPITAL LABORATORY IMM GRAN x10^3 0.15 (H) 0.00 - 0.06 [facility] 10*3/uL HOSPITAL LABORATORY LYMPH x10^3 1.66 1.09 - 3.23 [facility] 10*3/uL HOSPITAL LABORATORY MONO x10^3 2.02 (H) 0.36 - 1.02 [facility] 10*3/uL HOSPITAL LABORATORY EOS x10^3 0.09 0.06 - 0.53 [facility] 10*3/uL [facility] BASO x10^3 0.08 0.01 - 0.09 [facility] 10*3/uL [facility] BANDS MARKED INCREASED [facility] () [facility] DOHLE BODIES Present (A) [facility] Specimen Blood - VENOUS Performing Organization Address City/State/Zipcode Phone Number [facility] CLIA: [id number] [place] [address] Complete Metabolic Panel (03/10/2020 9:36 PM INSTRUCTOR CREELER) Pathologist Sig nature NA 133 (L) 135 - 145 [facility] [facility] mmol/L [facility] K 4.4 3.5 - 5.0 [facility] mmol/L [facility] CL 97 (L) 98 - 108 mmol/L [facility] CO2 TOTAL 28 23 - 31 mmol/L [facility] AGAP 8 2 - 16 [facility] BUN 13 7 - 23 mg/dL [facility] GLUCOSE 135 (H) 70 - 110 mg/dL [facility] CREATININE 0.97 0.60 - 1.25 [facility] mg/dL [facility] TOTAL BILI 0.5 0.1 - 1.1 mg/dL [facility] CALCIUM 8.8 8.6 - 10.6 [facility] mg/dL [facility] T PROTEIN 6.6 6.3 - 8.2 g/dL [facility] ALBUMIN 3.7 3.5 - 5.0 g/dL [facility] ALK PHOS 78 34 - 122 U/L [facility] ALTv 33 5 - 50 U/L [facility] AST(SGOT) 32 13 - 40 U/L [facility] eGFR Calculation 89.7 mL/min/1.73m2 [facility] [place] eGFR Calculation 108.7 mL/min/1.73m2 [facility] () [facility] Specimen Blood - VENOUS Narrative Performed At [facility] [place] [facility] Glomerular Filtration Rate (GFR) [facility] and Staging of Kidney Disease* + + +- + | GFR (mL/min/1.73 m2) | With Kidney Damage | Without Kidney Damage + + +- + | >90 | Stage one | Normal + + +- + | 60-89 | Stage two | Decreased GFR + + +- + | 30-59 | Stage three | Stage three + + +- + | 15-29 | Stage four | Stage four + + +- + | <15 (or dialysis) | Stage five | Stage five + + +- + *Each stage assumes the associated GFR level has been in effect for at least three months. Stages 1 to 5, with or without kidney disease, indicate chronic kidney disease. Notes: Determination of stages one and two (with eGFR >59mL/min/1.73 m2) requires estimation of kidney damage for at least three months as defined by structural or functional abnormalities of the kidney, manifested by either: Pathological abnormalities or Markers of kidney damage (including abnormalities in the composition of the blood or urine or abnormalities in imaging tests). Performing Organization Address City/State/Zipcode Phone Number [facility] CLIA: [id number] [place] [address] documented in this encounter Visit Diagnoses Diagnosis Acute cholecystitis - Primary Epigastric burning sensation Abdominal pain, epigastric Epigastric abdominal pain Abdominal pain, epigastric RUQ abdominal pain Abdominal pain, right upper quadrant Leukocytosis, unspecified type Bandemia documented in this encounter Administered Medications Medication Order MAR Action Action Date Dose Rate Site alum-mag hydroxide-simeth (MAALOX Given 03/14/2020 9:35 AM INSTRUCTOR CREELER 30 mL PLUS / MAG-AL PLUS) 200-200-20 mg/5 mL suspension 30 mL 30 mL, Oral, BID, First dose on Sat03/11/20 at 0800, Until Discontinued, Routine Given 03/13/2020 8:41 PM INSTRUCTOR CREELER 30 mL Given 03/13/2020 8:28 AM INSTRUCTOR CREELER 30 mL heparin (porcine) injection Given 03/14/2020 9:35 AM INSTRUCTOR CREELER 5,000 Units Abdomen-SC 5,000 Units 5,000 Units, Subcutaneous, Q12H, First dose (after last modification) on Sat03/14/20 at 0800, Until Discontinued, Routine lactobacillus acidophilus (ACIDOPHILLUS) Given 03/14/2020 9 :34 AM INSTRUCTOR CREELER 1 tablet 25 million cell -100 mg captab 1 tablet 1 tablet, Oral, BID, First dose on Sat03/11/20 at 0130, Until Discontinued, Routine Given 03/13/2020 8:41 PM INSTRUCTOR CREELER 1 tablet Given 03/13/2020 8:29 AM INSTRUCTOR CREELER 1 tablet nicotine (NICODERM) 21 mg/24 hr patch 1 Applied 03/14/2020 9: 34 AM INSTRUCTOR CREELER 1 Patch Patch 1 Patch, Topical, Administer over 24 Hours, Q24H, First dose on Sat03/11/20 at 0845, Until Discontinued, Routine Given 03/13/2020 8:28 AM INSTRUCTOR CREELER 1 Patch Given 03/12/2020 7:59 AM INSTRUCTOR CREELER 1 Patch pantoprazole (PROTONIX) EC tablet 40 mg 40 mg, Oral, DAILY, First dose on Sat at 0900, Until Discontinued, Routine piperacillin-tazobactam (ZOSYN) 3.375 g in Given 03/14 9:35 AM INSTRUCTOR CREELER 3.375 g NaCl 0.9% (NS) 100 mL MINI-BAG 3.375 g, IV Piggyback, Q6H ABX, First dose (after last reorder) on Sat03/11/20 at 0900, Until Discontinued, 100 mL, Reason for Anti-Infective: Documented Infection, Documented Infection Site: Abdominal, Duration of Therapy: Other (see Comments) Given 03/14/2020 4:27 AM INSTRUCTOR CREELER 3.375 g Given 03/13/2020 8:41 PM INSTRUCTOR CREELER 3.375 g Medication Order MAR Action Action Date Dose Rate Site cefTRIAXone (ROCEPHIN) 1,000 mg Given 03/11/2020 12:55 AM INSTRUCTOR CREELER 1, 000 mg in NaCl 0.9% (NS) 50 mL MINI-BAG 1,000 mg, IV Piggyback, ONCE, 1 dose, Sat03/11/20 at 0200, 50 mL, Reason for Anti-Infective: Documented Infection, Documented Infection Site: Abdominal, Duration of Therapy: 7 days D5W 0.45% NaCl (1/2NS) IV New Bag 03/12/2020 8:16 AM INSTRUCTOR CREELER 1,000 mL 125 mL/hr infusion 1,000 mL at 125 mL/hr, 1,000 mL, IV Infusion, CONTINUOUS, Starting Sat03/11/20 at 0230, Until 03/12/20 at 2332, Routine New Bag 03/11/2020 10:16 PM INSTRUCTOR CREELER 1,000 mL 125 mL/hr New Bag 03/11/2020 1:02 PM INSTRUCTOR CREELER 1,000 mL 125 mL/hr docusate (COLACE) capsule 100 mg Given 03/12/2020 7:59 AM INSTRUCTOR CREELER 100 mg 100 mg, Oral, BID, First dose on Sat03/11/20 at 0800, Until Discontinued, Routine FENTanyl PF (SUBLIMAZE (PF)) injection 50 Given 03/11/2020 12:36 AM INSTRUCTOR CREELER 50 mcg mcg 50 mcg, Slow IV Push, ONCE, 1 dose, [facility] 03/10/20 at 2345, Routine HYDROmorphone (DILAUDID) injection 0.6 m g Given 03/11/2020 1:34 PM INSTRUCTOR CREELER 0.6 mg 0.6 mg, Slow IV Push, Q4HPRN, Starting Sat03/11/20 at 1320, Until Sat03/11/20 at 1444, Routine, Pain (scale 7-10), Use approved by (Faculty): ADC PROVIDER HYDROmorphone (DILAUDID) injection 1 mg Given 03/12/2020 8:00 AM INSTRUCTOR CREELER 1 mg 1 mg, Slow IV Push, Q4HPRN, Starting Sat03/11/20 at 1444, Until 03/12/20 at 0942, Routine, Pain (scale 7-10), Use approved by (Faculty): ADC PROVIDER Given 03/12/2020 3:40 AM INSTRUCTOR CREELER 1 mg Given 03/11/2020 11:34 PM INSTRUCTOR CREELER 1 mg iohexol (OMNIPAQUE 350 BULK-150 mL) Given 03/13/2020 2:58 AM CS T 120 mL injection 120 mL 120 mL, Intravenous, ONCE, 1 dose, [place] 03/13/20 at 0315, Routine lactated ringers IV infusion New Bag 03/13/2020 12:28 AM INSTRUCTOR CREELER 1,000 mL 75 mL/hr 1,000 mL at 75 mL/hr, 1,000 mL, IV Infusion, CONTINUOUS, Starting 03/12/20 at 2345, Until 03/13/20 at 1019, Routine lactated ringers IV infusion New Bag 03/13/2020 3:50 PM INSTRUCTOR CREELER 1,000 mL 125 mL/hr 1,000 mL at 125 mL/hr, 1,000 mL, IV Infusion, CONTINUOUS, Starting 03/13/20 at 1030, Until 03/13/20 at 2344, Routine Rate Change 03/13/2020 10:33 AM INSTRUCTOR CREELER 125 mL/hr maalox:diphenhydrAMINE:lidocaine 2 % viscous Given 9:52 PM INSTRUCTOR CREELER 15 mL 1:1:1 (FIRST-MOUTHWASH BLM) oral suspension 15 mL 15 mL, Oral, ONCE, 1 dose, [facility] 03/10/20 at 2300, Routine melatonin (MELATIN) tablet 3 mg Given 03/13/2020 3:13 AM INSTRUCTOR CREELER 3 mg 3 mg, Oral, QHSPRN, Starting 03/13/20 at 0053, Until 03/13/20 at 202, Routine, Insomnia morpHINE injection 2 mg Given 03/11/2020 3:33 AM INSTRUCTOR CREELER 2 mg 2 mg, Slow IV Push, Q4HPRN, Starting 03/11/20 at 0129, Until Sat03/11/20 at 0737, Routine, Pain (scale 7-10) morpHINE injection 2 mg Given 03/14/2020 9:34 AM INSTRUCTOR CREELER 2 mg 2 mg, Slow IV Push, Q6HPRN, Starting 03/12/20 at 0941, Until 03/14/20 at 1729, Routine, Pain (scale 7-10) Given 03/14/2020 3:15 AM INSTRUCTOR CREELER 2 mg Given 03/13/2020 9:43 PM INSTRUCTOR CREELER 2 mg morpHINE injection 4 mg Given 03/11/2020 11:51 AM INSTRUCTOR CREELER 4 mg 4 mg, Slow IV Push, Q4HPRN, Starting 03/11/20 at 0737, Until Sat03/11/20 at 1321, Routine, Pain (scale 7-10) Given 03/11/2020 7:45 AM INSTRUCTOR CREELER 4 mg nicotine (NICODERM) 14 mg/24 hr patch 1 Given 03/11/2020 3:32 A M INSTRUCTOR CREELER 1 Patch Patch 1 Patch, Topical, Administer over 24 Hours, ONCE NOW, 1 dose, Sat03/11/20 at 0200, Routine ondansetron (ZOFRAN (PF)) injection 4 mg Given 03/11/2020 3:11 PM INSTRUCTOR CREELER 4 mg 4 mg, Slow IV Push, Q6HPRN, Starting Sat03/11/20 at 0126, Until 03/14/20 at 1729, Routine, Nausea and Vomiting (N/V) pantoprazole (PROTONIX) 40 mg in NaCl 0.9% Given 03/14/2020 9:3 6 AM INSTRUCTOR CREELER 40 mg (NS) 100 mL MINI-BAG 40 mg, IV Piggyback, Q12H, First dose on Sat03/11/20 at 0745, Until Discontinued, 100 mL Given 03/13/2020 8:41 PM INSTRUCTOR CREELER 40 mg Given 03/13/2020 8:28 AM INSTRUCTOR CREELER 40 mg piperacillin-tazobactam (ZOSYN) 3.375 g in Given 03/11 1:00 AM INSTRUCTOR CREELER 3.375 g NaCl 0.9% (NS) 100 mL MINI-BAG 3.375 g, IV Piggyback, ONCE, 1 dose, Sat03/11/20 at 0200, 100 mL, Reason for Anti-Infective: Documented Infection, Documented Infection Site: Abdominal, Duration of Therapy: Other (see Comments) ramelteon (ROZEREM) tablet 8 mg Given 03/13/2020 8:41 PM INSTRUCTOR CREELER 8 mg 8 mg, Oral, QHSPRN, Starting 03/13/20 at 2019, Until 03/14/20 at 1729, Routine, Insomnia traMADoL (ULTRAM) tablet 50 mg Given 03/11/2020 8:52 PM INSTRUCTOR CREELER 50 mg 50 mg, Oral, Q8HPRN, Starting Sat03/11/20 at 2036, Until 03/12/20 at 0942, Routine, Pain (scale 4-6) traMADoL (ULTRAM) tablet 50 mg Given 03/14/2020 12:24 PM INSTRUCTOR CREELER 50 mg 50 mg, Oral, Q6HPRN, Starting 03/12/20 at 0945, Until 03/14/20 at 1729, Routine, Pain (scale 4-6) Given 03/13/2020 4:39 PM INSTRUCTOR CREELER 50 mg Given 03/12/2020 8:31 PM INSTRUCTOR CREELER 50 mg zolpidem (AMBIEN) tablet 5 mg Given 03/12/2020 12:15 AM INSTRUCTOR CREELER 5 mg 5 mg, Oral, QHSPRN, Starting Sat03/11/20 at 2036, Until 03/12/20 at 2312, Routine, Insomnia documented in this encounter Additional Health Concerns Infection Onset Date Last Indicated Resolved Time COVID-19 Rule Out 03/11/2020 03/11/2020 03/11/2020 1: 13 AM INSTRUCTOR CREELER documented as of this encounter
--- OUTSIDE RECORDS SUMMARY | 2020-04-19 09:24 | XMS REPORT | Summary of Care ---
:1985 Author Organization [facility] Address [address] [place] [address] Care Team Providers Name Role Phone Pcp, Patient Does Not Have A Primary Care Provider +[id number] Reason for Visit Reason Comments Other hip and elbow pain Auth/Cert Status Reason Specialty Diagnoses / Referred By Referred To Procedures Contact Contact Emergency Medicine [facility] Em ergency Dept [address] [place], [place] [id number] Fax: Encounter Details Date Type Department Care Team Description 03/28/2020 Emergency ADC-Emergency Gina Hardy Arthrit is (Primary Dx) Department DO [address] [place] [address] [phone] Allergies No Known Allergiesdocumented as of this encounter (statuses as of 03/28/2020) Medications Medication Sig Dispensed Refills Start Date End Date Status ergocalciferol, vitamin Take 1 capsule 8 capsule 0 03/26/2020 04/26/2020 Active d2, 1,250 mcg (50,000 by mouth weekly unit) for 31 days. capsuleIndications: Gastroenteritis lactobacillus Take 1 tablet 24 tablet 0 03/22/2020 03/28/2020 Active acidophilus 25 million by mouth 4 cell -100 mg (four) times captabIndications: daily for 6 Gastroenteritis days. pantoprazole 40 mg EC Take 1 tablet 60 tablet 0 03/22/2020 Active tabletIndications: by mouth 2 Gastroenteritis (two) times daily for 31 days. documented as of this encounter (statuses as of 03/28/2020) Active Problems Problem Noted Date Diarrhea 03/21/2020 Gastroenteritis 03/17/2020 Enterocolitis 03/17/2020 Leukocytosis, unspecified type 03/17/2020 Acute cholecystitis 03/11/2020 documented as of this encounter (statuses as of 03/28/2020) Social History Tobacco Use Types Packs/Day Years Used Date Current Every Day Smoker Cigarettes 1 Comments: probably will not stop Alcohol Use Drinks/Week oz/Week Comments Yes 6 Cans of beer 6.0 Alcohol Habits Answer Date Recorded How often do you have a drink containing 4 or more times a w [place] 03/11/2020 alcohol? How many drinks containing alcohol do you have 5 or 6 03/12/2020 on a typical day when you are drinking? How often do you have six or more drinks on one Not asked 03/11/2020 occasion? Sex Assigned at Date Recorded Not on file COVID-19 Exposure Response Date Recorded In the last month, have you been in contact with No / Unsure 03/28/2020 3:05 AM COPIER OPERATOR someone who was confirmed or suspected to have Coronavirus / COVID-19? documented as of this encounter Last Filed Vital Signs Vital Sign Reading Time Taken Comments Blood Pressure 145/86 03/28/2020 4:23 AM COPIER OPERATOR Pulse 113 03/28/2020 4:23 AM COPIER OPERATOR Temperature 37.4 C (99.3 F) 03/28/2020 3:12 AM COPIER OPERATOR Respiratory Rate 18 03/28/2020 4:23 AM COPIER OPERATOR Oxygen Saturation 93% 03/28/2020 4:23 AM COPIER OPERATOR Inhaled Oxygen Concentration - - Weight 70.3 kg (155 lb) 03/28/2020 3:08 AM COPIER OPERATOR Height - - Body Mass Index 24.27 03/17/2020 8:07 AM COPIER OPERATOR documented in this encounter Discharge Instructions Gian Olvera DO - 1DIAGNOSIS 1. Arthritis NO LIFE-THREATENING FINDINGS ON TODAY'S EXAM. PROCEDURES IN THE ER TODAY: Gonorrhea test MEDICATIONS ADMINISTERED IN THE ER TODAY: Decadron YOUR PRESCRIPTIONS AND [id number] MEDICATION RECOMMENDATIONS: You may use over the counter anti-inflammatories such as Advil or Motrin three times a day with foodas needed for pain. You may use warm compresses, icy hot/abdi mayberry and massage to help with your pain. SPECIAL CARE INSTRUCTIONS: None FOLLOW-UP RECOMMENDATIONS: RECOMMEND FOLLOW-UP WITH A PRIMARY CARE PROVIDER OR SPECIALIST IN 2-5 DAYS, ESPECIALLY IF NO IMPROVEMENT IN SYMPTOMS. TO FOLLOW-UP WITHIN THE [facility], TRY THESE OPTIONS (CLINIC APPOINTMENTS AVAILABLE ON DAIA-LV-BRMR BASIS): 1. SCHEDULE AN APPOINTMENT ONLINE AT [facility] 2. OR CALL THE [facility]ESS [facility]ENTER AT OR 3. OR CALL YOUR [facility] PHYSICIAN'S OFFICE DIRECTLY IF YOU ARE ALREADY AN ESTABLISHED [facility] PATIENT. OR, YOU MAY FOLLOW-UP WITH A PROVIDER OF YOUR CHOICE, SUCH : 1. A PHYSICIAN OF YOUR CHOICE 2. [facility], . LOCATIONS IN [facility] 3. [facility], [address], [place]; [phone] RETURN TO ER FOR WORSENING OF SYMPTOMS. AttachmentsThe following attachments cannot be sent through Care Everywhere. Arthritis, What Is? (Togolese)documented in this encounter ED Notes Mone Radford RN - 03/28/2020 3:10 AM CSTJulio Nieto is a 34 year old male co r hip pain. And l elbow pain. Reports that he was recently seen in this er for abd pain and got admitted. Reports transferred to [place] and that while in the hospital that started getting a pain to r hip that over the last couple of days has worsened. Reports that the pain also is in his l elbow. Denies any trauma. . Relates these pains to progression of moving pains in body. Patient reports that he has to be at work in a little bit so needs to get somet ramona done. States that maybe he could just get a shot to help him. Ambulatory to room. ER OPERATOR Gina Hardy DO - 03/28/2020 2:55 AM CST [facility] Emergency Department Note Patient Name: Juilo Nieto Date of : 1985 34 year old male Treatment Room: TX1/TX1 Primary Care Physician: PATIENT DOES NOT HAVE A PCP Patient Escorted by: Self [9] Mode of Arrival: Personal means [1] EMS Treatment Prior to ED Arrival: Travel and Exposure Screening: Symptoms Does patient have any of these symptoms?: (not recorded) Exposure Screening Has patient had contact with someone with a communicable disease in the last month?: (not recorded) Diseases exposed to:: (not recorded) Is Patient ?: (not recorded) Exposure Date: (not recorded) Chief Complaint: Chief Complaint Patient presents with Other hip and elbow pain History of Present Illness: 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 Currently has pain to his righthip and left elbow. Denies injury or trauma. No meds for sx at home. Used Tylenol PM last night to help him sleep. No cough or URI sx. No penile discharge or dysuria. Is sexually active with his girlfriend only. Was admitted end of February for abdominal pain. Here for eval. Past Medical History/Immunizations: Past Medical History: Diagnosis Date Smoker Testicular torsion Tetanus received in last 5 years: Yes Allergies: No Known Allergies Past Social History: Tobacco Use Current Every Day Smoker; Smokes 1 pack/day; Smoked: Cigarettes. Comments: probably will not stop Alcohol Use Yes; 6.0 standard drinks of alcohol per week; 6 Cans of beer. Frequency of alcohol consumption: 4 or more times a week Number of drinks when drinkin or 6 Drug Use Not Currently. Past Surgical History: Past Surgical History: Procedure Laterality Date OTHER hand surgery OTHER vascular surgery in testicle Review of Systems: Review of Systems Constitutional: Negative for chills and fever. Respiratory: Negative for shortness of breath. Cardiovascular: Negative for chest pain. Gastrointestinal: Negative for abdominal pain. Genitourinary: Negative for dysuria. Musculoskeletal: Positive for arthralgias. Negative for neck pain and neck stiffness. Skin: Negative for wound. Neurological: Negative for dizziness. Psychiatric/Behavioral: Negative for agitation. Physical Exam: ED Triage Vitals [03/28/20 0308] Weight 70.3 kg (155 lb) Actual or estimated Estimated by patient/family report Height BP (!) 147/80 Pulse 100 Resp 16 Temp 37.4 C (99.4 F) Temp source Oral SpO2 99 % Measured on Room air Physical Exam Vitals signs and nursing note reviewed. Constitutional: Appearance: Normal appearance. HENT: Head: Normocephalic and atraumatic. Cardiovascular: Rate and Rhythm: Normal rate. Pulmonary: Effort: Pulmonary effort is normal. No respiratory distress. Musculoskeletal: Normal range of motion. Comments: FROM b/l shoulders, elbows, wrists, hips, knees and ankles Skin: General: Skin is warm and dry. Neurological: General: No focal deficit present. Mental Status: He is alert and oriented to person, place, and time. Gait: Gait normal. Radiology: No results found for this visit on 03/28/20. Lab Results (24h): No results found for this or any previous visit (from the past 24 hour(s)). 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 Currently pain is in his righthip and left elbow. No injury or trauma. Is right handed. Denies dysuria or penile discharge. No meds for sx VSS here in the EC. FROM b/l shoulders, elbows, wrists, hips, knees and ankles. Steady gait. Will test for gonorrhea for gonoccal arthritis. Will give IM decadron and Motrin. Can use otc meds prn. Stable here in the EC and is ok for discharge home with PCP f/u MDM: Coding Scoring Tools: No data recorded Diagnosis/Impression: ICD-10-CM ICD-9-CM 1. Arthritis M19.90 716.90 Disposition/Condition: ED Disposition ED Disposition Condition Comment Disch - Home Stable Discharge Medications: Patient's Medications START taking these medications No medications on file CONTINUE taking these medications which have NOT CHANGED ERGOCALCIFEROL, VITAMIN D2, 1,250 MCG (50,000 UNIT) CAPSULE Take 1 capsule by mouth weekly for 31 days. LACTOBACILLUS ACIDOPHILUS 25 MILLION CELL -100 MG CAPTAB Take 1 tablet by mouth 4 (four) times daily for 6 days. PANTOPRAZOLE 40 MG EC TABLET Take 1 tablet by mouth 2 (two) times daily for 31 days. START taking Modified Medications as Prescribed No medications on file STOP taking these medications No medications on file Follow-up: Electronically signed by: Gina Hardy DO 03/28/2020 4:17 AM ER OPERATOR documented in this encounter Miscellaneous Notes ED Nurse Note - Yenni Anderson RN - 03/28/2020 5:00 AM CSTPt given printed and verbal discharge instructions regarding arthritis , encouraged hydration, Prescriptions provided none Discussed ibuprofen and to take with food to avoid GI distress. Pt verbalized understanding of instructions, pt awake alert oriented, resp reg unlabored, skin w/d, color appropriate for race, moves all ext well,pt encouraged to follow up with PCP. Advised to seek medical attention for new/prolonged/worsening of symptoms, Symptoms improved No adverse reaction to meds given in ER noted upon discharge Awake, alert oriented, resp reg unlabored, skin w/d, pt leaving amb with steady gait, in no apparent distress, D Nurse Note - Mone Radford RN - 03/28/2020 3:58 AM CSTPatient denies self treating pain. Denies any swelling or discoloration of areas of pain . Does reports that when the pain was in the right wrist and moved to the r hand before that the r hand did have some swelling. No swelling At this time. documented in this encounter Plan of Treatment Name Type Priority Associated Diagnoses Date/Ti me GC & CHLAMYDIA AMPLIFIED LAB STAT Arthritis 06/2020 4:22 AM COPIER OPERATOR ASSAY Name Type Priority Associated Diagnoses Order S chedule GC & CHLAMYDIA AMPLIFIED LAB Routine Arthritis ONC E for 1 Occurrences ASSAY starting 2020 until 03/28/2020 Health Maintenance Due Date Last Done Comments VARICELLA VACCINES (1 of 2 - 2-dose childhood series) 06/17/1988 PNEUMOCOCCAL 0-64 YEARS COMBINED SERIES (1 of 1 - 06/17/1993 PPSV23) Depression Screening 1999 DTaP,Tdap,and Td Vaccines (1 - Tdap) 06/17/2006 INFLUENZA VACCINE (#1) 2019 documented as of this encounter Procedures Procedure Name Priority Date/Time Associated Diagnosis Comme nts CONSENT/REFUSAL FOR Routine 03/28/2020 2:56 AM COPIER OPERATOR DIAGNOSIS AND TREATMENT documented in this encounter Results Not on filedocumented in this encounter Visit Diagnoses Diagnosis Arthritis - Primary Arthropathy, unspecified, site unspecifi ed documented in this encounter Administered Medications Medication Order MAR Action Action Date Dose Rate Site dexamethasone (DECADRON Given 03/28/2020 4:25 AM 10 mg Right PHOSPHATE) injection 10 mg COPIER OPERATOR Dorsogluteal-IM 10 mg, Intramuscular, ONCE, 1 dose, Sat03/28/20 at 0530, STAT ibuprofen (IBU) tablet 600 mg Given 03/28/2020 3:43 AM COPIER OPERATOR 600 mg 600 mg, Oral, ONCE, 1 dose, Sat03/28/20 at 0445, JOSE A documented in this encounter
--- OUTSIDE RECORDS SUMMARY | 2020-04-19 09:24 | XMS REPORT | Continuity of Care Document ---
:[address] [facility] t Address [address] [place] [address] Care Team Providers Name Role Phone Gina Hardy DO Attending Clinician Nola MCDERMOTT, A Attending Clinician Unavailable Piep BOYKIN, C Attending Clinician Bijal BOYKIN, Cristiane Attending Clinician Abdulkadir BOYKIN Attending Clinician Sammie WYNN, R Attending Clinician Kristyn BOYKIN Attending Clinician Garcia Russell MD Admitting Clinician Kristyn BOYKIN Admitting Clinician Problems This patient has no known problems. Allergies, Adverse Reactions, Alerts This patient has no known allergies or adverse reactions. Medications This patient has no known medications. Procedures This patient has no known procedures. Encounters Start End Encounter Admission Attending Care Care Encounter Source Date/Time Date/Time Type Type Clinicians Facility Department ID 2020-03-28 2020-03-28 Emergency CHRISTINE Hardy [id number] 03:15:00 05:01:00 Gina Guerrero [id number] [place] [id number] [place] [id number] 2020-03-24 2020-03-24 Transition Penny Vaca [id number] 00:00:00 00:00:00 of Care Joshua Sauer Walt [id number] [place] [id number] 2020-03-17 2020-03-22 [facility] PipeAdryan [id number] 01:43:00 16:58:00 [id number] 2020-03-10 2020-03-14 Emergency CochranDelilah sun [id number] 21:26:00 15:30:00 Cruzito Simons [id number] Delilah [place] [facility] [id number] Results This patient has no known results.
--- OUTSIDE RECORDS SUMMARY | 2020-04-19 09:24 | XMS REPORT | Summary of Care ---
:1985 Author Organization [facility] Address [address] [place] [id number] Care Team Providers Name Role Phone Pcp, Patient Does Not Have A Primary Care Provider +[id number] Reason for Visit Reason Comments Transition Of Care Encounter Details Date Type Department Care Team Description 03/24/2020 [facility] [address] [id number] Allergies No Known Allergiesdocumented as of this encounter (statuses as of 03/24/2020) Medications Medication Sig Dispensed Refills Start Date End Date Status azithromycin 500 mg Take 1 tablet 1 tablet 0 03/23/202003/24 Active tabletIndications: by mouth daily Gastroenteritis for 1 day. ergocalciferol, vitamin Take 1 capsule 8 capsule [...] as of this encounter (statuses as of 03/24/2020) Active Problems Problem Noted Date Diarrhea 03/21/2020 Gastroenteritis 03/17/2020 Enterocolitis 03/17/2020 Leukocytosis, unspecified type 03/17/2020 Acute cholecystitis 03/11/2020 documented as of this encounter (statuses as of 03/24/2020) Social History Tobacco Use Types Packs/Day Years Used Date Current Every Day Smoker Cigarettes 1 Comments: probably will not stop Alcohol Use Drinks/Week oz/Week Comments Yes 6 Cans of beer 6.0 Alcohol Habits Answer Date Recorded How often do you have a drink containing 4 or more times a w [place] 03/11/2020 alcohol? How many drinks containing alcohol do you have 5 or 6 03/12/2020 on a typical day when you are drinking? How often do you have six or more drinks on one Not asked 03/11/2020 occasion? Sex Assigned at Date Recorded Not on file COVID-19 Exposure Response Date Recorded In the last month, have you been in contact with No / Unsure 03/17/2020 8:28 AM CABLE MACHINE OPERATOR someone who was confirmed or suspected to have Coronavirus / COVID-19? documented as of this encounter Last Filed Vital Signs Not on filedocumented in this encounter Miscellaneous Notes Telephone Encounter - Joshua Vaca RN - 03/24/2020 4:37 PM CST TRANSITIONAL CARE MANAGEMENT ASSESSMENT 03/24/2020 Julio Nieto [id number] Julio Nieto is a 34 year old /White male was admitted on 03/17/20 to [facility] AT [address] He was discharged on 03/22/20 with discharge disposition of HR- Routine Discharge. Admitting Physician: Colt Russell Discharge Diagnosis: FINAL DIAGNOSIS: (the reason, after study, for admitting the patient to the hospital) Enterocolitis - etiology unknown Linked Episodes Type: Episode: Status: Noted: Resolved: Last update: Updated by: TRANSITION OF CARE TCM Active 03/22/2020 03/24/2020 4:32 PM Joshua Vaca, RN Comments: TCM [id number]-az-face outreach documentation: Discharge Assessment Chart Assessed: 03/24/20 TCM Outreach Completed: 03/24/20 Do you have a few minutes to speak with me about how you are doing at home?: Yes(Pt states he is doing fine, and is getting better.) Discharge Instructions Do you understand your at-home instructions?: Yes(No questions at this time.) Medications Have you filled your prescriptions and do you have them in your home? : Yes Do you know how to take your medications?: Yes(No questions.) Can you provide me with the names or descriptions of any tkrx-daf-diosbox or supplements you are currently taking?: Patient declined Supplies Did you receive applicable home medical supplies/equipment?: N/A Follow Up Appointment Has a follow up appointment been scheduled?: No May I assist with scheduling this appointment?: Patient declined assistance Do you have any questions about your follow up appointments?: No Are you able to get to your appointment? Who will be taking you?: Yes Home Health Assistance Has the home health nurse contacted you since you've been home?: N/A Survey - Recognition Is there anything you would like to share about your recent hospitalization, or anyone you would like to recognize?: No Do you have any suggestions for improvement?: No Do you have any other questions or concerns at this time?: No Future Appointments: Pending. Your COVID 19 test results were negative. You may return to work or school when you are feeling better and have not had a fever for 24 hours or more without taking fever reducing medications, such as acetaminophen or ibuprofen. E MACHINE OPERATOR documented in this encounter Plan of Treatment Health Maintenance Due Date Last Done Comments VARICELLA VACCINES (1 of 2 - 2-dose childhood series) 06/17/1988 PNEUMOCOCCAL 0-64 YEARS COMBINED SERIES (1 of 1 - 06/17/1993 PPSV23) Depression Screening 1999 DTaP,Tdap,and Td Vaccines (1 - Tdap) 06/17/2006 INFLUENZA VACCINE (#1) 2019 documented as of this encounter Results Not on filedocumented in this encounter
--- OUTSIDE RECORDS SUMMARY | 2020-04-19 09:24 | XMS REPORT | Summary of Care ---
:1985 Author Organization [facility] - [facility] Address [address] [place] [id number] Care Team Providers Name Role Phone Pcp, Patient Does Not Have A Primary Care Provider +[id number] 0-0000 Reason for Referral (Routine) Status Reason Specialty Diagnoses / Referred By Referred To Procedures Contact Contact New Request IM-GASTROENTEROLO Diagnoses Gastroenteritis Rosangela Panchal, GY Procedures Discharge Follow-Up: Specialty Service IM-GASTROENTEROLOGY; [address] [place] [phone] (Routine) Status Reason Specialty Diagnoses / Referred By Contact Refe rred To Procedures Contact New Request Diagnoses Gastroenteritis Rosangela Panchal MD Pcp, Patient Does Procedures Discharge Follow-up: PCP PATIENT DOES NOT HAVE A PCP; 3-[address] [place] [address] [address] [phone] Phone: Phone: Radiology Services (STAT) Status Reason Specialty Diagnoses / Referred By Referred To Procedures Contact Contact New Request Diagnostic Diagnoses Enterocolitis Rosangela Panchal, Radiology Procedures XR LUPE BOYKIN [address] [place] [phone] Radiology Services (Routine) Status Reason Specialty Diagnoses / Referred By Referred To Procedures Contact Contact New Request Diagnostic Diagnoses Gastroenteritis Rosangela Panchal, Radiology Procedures XR LUPE BOYKIN [address] [place] [phone] Radiology Services (Routine) Status Reason Specialty Diagnoses / Referred By Referred To Procedures Contact Contact New Request Diagnostic Diagnoses Epigastric pain Gastroenteritis AppiahDelilah gorman Radiology Procedures XR LUPE Sauer MD [address] [phone] Radiology Services (Routine) Status Reason Specialty Diagnoses / Referred By Referred To Procedures Contact Contact New Request Diagnostic Diagnoses Epigastric pain Delilah Appiah Radiology Procedures US ABDOMEN MORELIA Sauer MD [address] [phone] Radiology Services (Routine) Status Reason Specialty Diagnoses / Referred By Referred To Procedures Contact Contact New Request Diagnostic Diagnoses Epigastric pain Delilah Appiah Radiology Procedures XR LUPE Sauer MD [address] [place] [phone] Radiology Services (Routine) Status Reason Specialty Diagnoses / Referred By Referred To Procedures Contact Contact New Request Diagnostic Diagnoses Epigastric pain Delilah Appiah Radiology Procedures XR CHEST 1 LEMUEL Sauer MD [address] [address] MRI/CAT Scan (STAT) Status Reason Specialty Diagnoses / Referred By Referred To Procedures Contact Contact New Request Diagnostic Diagnoses Epigastric pain Adryan Betancur, Radiology Procedures CT ABDOMEN PELVIS W CONTRAST [address] [address] Reason for Visit Reason Comments Abdominal Pain Auth/Cert Status Reason Specialty Diagnoses / Referred By Referred To Procedures Contact Contact Emergency Medicine Diagnoses abdominal pain [facility] [address] [place] [phone] Fax: Encounter Details Date Type Department Care Team Description 03/17/2020 - Hospital Encounter Medicine (EMILY 10B) Adryan Betancur MD [address] [address] [phone] Enterocolitis 03/22/2020 712 [facility] Delilah Appiah MD [address] [place] [address] [id number] [place], [place] [id number] [place] [address] Rosangela Panchal MD [address] [place] [phone] Colt Russell MD [address] [place] [phone] Allergies No Known Allergiesdocumented as of this encounter (statuses as of 03/22/2020) Medications Medication Sig Dispensed Refills Start Date End Date Status nicotine 21 mg/24 hr Apply 1 Patch 7 Patch 0 03/15/202002/23 Active patchIndications: RUQ to area(s) 0 abdominal pain every 24 (twenty-four) hours for 7 days. azithromycin 500 mg Take 1 tablet 1 tablet 0 03/23/202003/24 Active tabletIndications: by mouth 0 Gastroenteritis daily for 1 day. ergocalciferol, Take 1 8 capsule 0 03/26/2020 Act claudia vitamin d2, 1,250 mcg capsule by 1 (50,000 unit) mouth weekly capsuleIndications: for 31 days. Gastroenteritis lactobacillus Take 1 tablet 24 tablet 0 03/22/2020 A ctive acidophilus 25 by mouth 4 1 million cell -100 mg (four) times captabIndications: daily for 6 Gastroenteritis days. pantoprazole 40 mg EC Take 1 tablet 60 tablet 0 03/22/2020 Active tabletIndications: by mouth 2 1 Gastroenteritis (two) times daily for 31 days. ciprofloxacin HCl 500 Take 1 tablet 6 tablet 0 03/15/2020 Discontinued mg tabletIndications: by mouth 0 RUQ abdominal pain every 12 (twelve) hours for 3 days. metroNIDAZOLE 250 mg Take 2 18 tablet 0 03/15/2020 03/22/20 2 Discontinued tabletIndications: tablets by 0 RUQ abdominal pain mouth every 8 (eight) hours for 3 days. documented as of this encounter (statuses as of 03/22/2020) Active Problems Problem Noted Date Diarrhea 03/21/2020 Gastroenteritis 03/17/2020 Enterocolitis 03/17/2020 Leukocytosis, unspecified type 03/17/2020 Acute cholecystitis 03/11/2020 documented as of this encounter (statuses as of 03/22/2020) Social History Tobacco Use Types Packs/Day Years Used Date Current Every Day Smoker Cigarettes 1 Comments: probably will not stop Alcohol Use Drinks/Week oz/Week Comments Yes 6 Cans of beer 6.0 Alcohol Habits Answer Date Recorded How often do you have a drink containing 4 or more times a w [place] 03/11/2020 alcohol? How many drinks containing alcohol [...] with No / Unsure 03/17/2020 8:28 AM BURNISHING MACHINE OPERATOR someone who was confirmed or suspected to have Coronavirus / COVID-19? documented as of this encounter Last Filed Vital Signs Vital Sign Reading Time Taken Comments Blood Pressure 113/67 03/22/2020 11:48 AM BURNISHING MACHINE OPERATOR Pulse 78 03/22/2020 11:48 AM BURNISHING MACHINE OPERATOR Temperature 36.7 C (98 F) 03/22/2020 11:48 AM BURNISHING MACHINE OPERATOR Respiratory Rate 18 03/22/2020 11:48 AM BURNISHING MACHINE OPERATOR Oxygen Saturation 99% 03/22/2020 11:48 AM BURNISHING MACHINE OPERATOR Inhaled Oxygen Concentration - - Weight 72.6 kg (160 lb) 03/17/2020 8:07 AM BURNISHING MACHINE OPERATOR Height 170.2 cm (5' 7.01") 03/17/2020 8:07 AM BURNISHING MACHINE OPERATOR Body Mass Index 25.05 03/17/2020 8:07 AM BURNISHING MACHINE OPERATOR documented in this encounter Discharge Instructions AttachmentsThe following attachments cannot be sent through Care Everywhere. Azithromycin tablets (Bhutanese)Pantoprazole tablets (Bhutanese)Ergocalciferol, Vitamin D2 tablets or capsules (Bhutanese)Lactobacillus Oral formulations (Bhutanese)Infection, Preventing the Spread of (Bhutanese)Diarrhea, Treating (Bhutanese)Colitis, Understanding (Bhutanese)Abdominal Pain, Adult (Bhutanese) Smoking,Getting Support for Quitting (Bhutanese)Stroke, Risk Factors for (Bhutanese)documented in this encounter Progress Notes Britany Isbell RN - 03/21/2020 11:24 AM BURNISHING MACHINE OPERATOR Care Management Discharge Disposition Note (DCDN) 2- Interventions: Disease specific education;Intensive medication reconciliation/management;Cleardischarge plan;Follow-up appointments;Teach back 2- Providers: Nurse;Physician;Advertising Coordinator/Log Cooker 2- Patient Capacity Improvements: Avoidance of adverse events/readmission Discharge Plan for ongoing care and services: Patient Choice completed for referred services: Discussed with patient/patients family involved in decision making: Patient or family caregiver understands, and agrees with discharge plan Patient's family or support contact: Discharge Plan: Receiving facility was provided the following clinical documentation at discharge- CM Facesheet, Consult notes, Labs, Progress Notes, MAR: DME location: Other DME location: Durable Medical Equipment: Home Health location: Discharge location(s): Community resources/referrals made or provided to patient: Yes Resources/Referrals: [facility] Resources Fact Sheets Mental Status: Alert & Oriented to Person,Place & Time Psychosocial issues and/or concerns resulting in patient being a high risk for re-admission: Manage ADL indepentdly: Living Arrangement: Home Other living arrangement: Address of living arrangement: [address] [place], [place] [id number] Funding Resources: Self Pay Has patient been referred to [facility]? Nursing informed of discharge plan: No CHP [...] (if appropriate): Yes Name of RN informed: Joann Expected discharge date: Time: Additional Information: CM/SW Name & Contact number: Britany Isbell RN Ph. [phone] The following information has been provided to the facility noted above: reason for the patient discharge or transfer; patients physical and psychosocial status; summary of care, treatment, servicesprovided to patient; and the patient progress toward goals. Inocencio Sykes DO - 03/21/2020 6:22 AM CST [facility] Progress Note Date of Service: 03/21/2020 06:22 Chief Complaint: abdominal pain and diarrhea 24-HOUR EVENTS: NAEO SUBJECTIVE: Complains of a few episodes of sharp abdominal pain that are relieved with maalox/diphenhydramine/lidocaine solution and not so much with norco 10. Had 1 BM since yesterday (diarrhea unchanged from before) PHYSICAL EXAM: Vitals: 03/20/20 1404 03/20/20 1659 03/20/20 2346 03/21/20 0433 BP: 126/85 128/86 125/76 116/57 BP Location: Left arm Patient Position: Sitting Pulse: 90 83 71 74 Resp: 18 18 18 18 Temp: 37.3 C (99.2 F) 37.2 C (99 F) 36.8 C (98.3 F) 36.4 C (97.5 F) TempSrc: Oral Oral Oral Oral SpO2: 100% 99% 98% 95% Weight: Height: General: alert and oriented x 3; no apparent distress Lungs: clear to auscultation bilaterally Cardio: S1, S2 normal; no murmurs, rubs or gallops, regular rate and rhythm Abdomen: soft; epigastric tenderness; non-distended; normoactive bowel sounds LABS/IMAGING - reviewed ASSESSMENT/PLAN Julio Nieto is a 34 year old male admitted to the hospital with: Abdominal Pain Concern for Enterocolitis Leukocytosis - uptrending Fecal infectious workup negative, pending calprotectin - CBC, BMP, LFTs, Mg, Phos - f/u differential consult for uptrending leukocytosis - c/w Zosyn; no significant improvement and ID consulted, f/u recs - c/w PPI BID for epigastric pain, H pylori stool antigen negative - Fluid resuscitation - pain control: norco 10/morphine prn - regular diet Wheezing, mild intermittent asthma - Duoneb inhalers Pain: Uncontrolled [place] 10 Prophylaxis: DVT- enoxaparin Stress Ulcer: pantoprazole Code Status: addressed: Full Disposition Anticipated Discharge Date : 03/21 Barriers to Discharge: Worsening abdominal distension and colonic distension on serial KUB Inocencio Morales DO (pronounced: Daniel) Internal Medicine, PGY-1 Pager #: [phone] [facility] COURSE Julio Nieto is a 34 year old male with history oftobacco use(17 pack years + 6 months of dipping),childhood asthma,etoh use(6 pack beer per day), PUD, testicular vessel surgery as a teenagerpresenting with continued abdominal pain. Recently hospitalized for same complaint several days ago, infectious workup negative that time. Repeat infectious workup negative and GI plans to scope outpatient. CURRENT MEDICATIONS - reviewed. Current Facility-Administered Medications Medication Dose Route Frequency Last Rate Last Admin lactobacillus acidophilus (ACIDOPHILLUS) 25 million cell -100 mg captab 1 tablet 1 tablet Oral QID 1 tablet at 03/20/201951 maalox:diphenhydrAMINE:lidocaine 2 % viscous 1:1:1 (FIRST-MOUTHWASH BLM) oral suspension 15 mL 15 mL Oral (Swish & Swallow) BIDPRN 15 mL at 03/20/20 211 ergocalciferol (vitamin d2) (CALCIFEROL) capsule 50,000 Units 50,000 Units Oral QWEEKLY 50,000 Units at 03/19/20 0941 HYDROcodone-acetaminophen (NORCO) 10-325 mg tablet 1 tablet 1 tablet Oral Q4HPRN 1 tablet at 03/20/20 1701 morpHINE injection 2 mg 2 mg Slow IV Push Q6HPRN 2 mg at 03/21/20 0332 ramelteon (ROZEREM) tablet 8 mg 8 mg Oral QHS 8 mg at 03/20/20 2116 acetaminophen (TYLENOL) tablet 650 mg 650 mg Oral Q6HPRN enoxaparin (LOVENOX) injection 40 mg 40 mg Subcutaneous DAILY 40 mg at 03/17/20 1740 ipratropium-albuteroL (DUONEB) 0.5 mg-3 mg(2.5 mg base)/3 mL nebulizer solution 3 mL 3 mL Inhalation QID 3 mL at 03/17/20 1923 lactated ringers IV infusion 1,000 mL 1,000 mL IV Infusion CONTINUOUS 125 mL/hr at 03/21/20 0413 1,000 mL at 03/21/20 0413 nicotine (NICODERM) 21 mg/24 hr patch 1 Patch 1 Patch Topical Q24H 1 Patch at 03/20/20 0801 pantoprazole (PROTONIX) EC tablet 40 mg 40 mg Oral BID 40 mg at 03/20/201951 piperacillin-tazobactam (ZOSYN) 3.375 g in NaCl 0.9% (NS) 100 mL MINI-BAG 3.375 g IV Piggyback Q6H ABX 3.375 g at 03/21/20 0332 ISHING MACHINE OPERATOR Associated attestation - Rosangela Panchal MD - 03/21/2020 4:24 PM CSTI personally examined the patient on 03/21/[address] Morales's resident note as written. Patient has better energy, is walking the unit. Has 1 watery BM per day. Will hold IVFs and antibiotics. Unsure if there is any other infectious etiology for his diarrhea. He states he felt well just like this the day of discharge last admission 03/14 but then bounced back 03/17 with severe diarrhea and abdominal pain. I actively participated in the decision-making process. Please see the resident's note for additional details. Inocencio Morales DO - 03/20/2020 7:42 AM CST [facility] Progress Note Date of Service: 03/20/2020 07:42 Chief Complaint: abdominal pain and diarrhea 24-HOUR EVENTS: NAEO SUBJECTIVE: This morning he experienced a few episodes of sharp abdominal pain that are not as intense as when he came in. Says that he noticed that for the past 2 days he feels his toes of both feet feel numb andoccasionally turn white and then blue that resolves on its own even when he wears socks. Continues to have diarrhea and that has not change, denies any SOB, CP, or bruising. PHYSICAL EXAM: Vitals: 03/19/20 1505 03/19/20202303/20/20 0010 03/20/20 0430 BP: 119/72 (!) 144/80 117/63 118/50 BP Location: Left arm Patient Position: Supine Pulse: 79 75 76 74 Resp: 18 18 18 18 Temp: 37.2 C (99 F) 37.1 C (98.7 F) 36.6 C (97.9 F) 36.8 C (98.2 F) TempSrc: Oral Oral Oral Oral SpO2: 96% 99% 95% 95% Weight: Height: General: alert and oriented x 3; no apparent distress HEENT: pupils equal, round, reactive to light; extraocular movements intact; oropharynx clear; moistmucous membranes Lungs: clear to auscultation bilaterally Cardio: S1, S2 normal; no murmurs, rubs or gallops, regular rate and rhythm Abdomen: soft; non-tender; non-distended; normoactive bowel sounds LABS/IMAGING - reviewed ASSESSMENT/PLAN Julio Nieto is a 34 year old male admitted to the hospital with: Abdominal Pain Concern for Enterocolitis Leukocytosis - uptrending Tobacco use disorder ETOH use disorder Worsening abdominal distension and colonic distension on serial KUB. CT AP with enterocolitis. Pending fecal infectious workup, calprotectin and H. Pylori antigen - CBC, BMP, LFTs, Mg, Phos - f/u differential consult for uptrending leukocytosis - c/w Zosyn - c/w PPI BID for epigastric pain - Fluid resuscitation - pain control: norco 10/morphine prn - regular diet Wheezing, mild intermittent asthma - Duoneb inhalers Pain: Uncontrolled [place] 10 Prophylaxis: DVT- enoxaparin Stress Ulcer: pantoprazole Code Status: addressed: Full Disposition Anticipated Discharge Date : 03/21 Barriers to Discharge: Worsening abdominal distension and colonic distension on serial KUB Inocencio Morales DO (pronounced: Daniel) Internal Medicine, PGY-1 Pager #: [phone] [facility] COURSE Julio Nieto is a 34 year old male with history oftobacco use(17 pack years + 6 months of dipping),childhood asthma,etoh use(6 pack beer per day), PUD, testicular vessel surgery as a teenagerpresenting with continued abdominal pain. Recently hospitalized for same complaint several days ago, infectious workup negative that time. Pending repeat infectious workup. GI following. CURRENT MEDICATIONS - reviewed. Current Facility-Administered Medications Medication Dose Route Frequency Last Rate Last Admin maalox:diphenhydrAMINE:lidocaine 2 % viscous 1:1:1 (FIRST-MOUTHWASH BLM) oral suspension 15 mL 15 mL Oral (Swish & Swallow) BIDPRN 15 mL at 03/19/20 2227 ergocalciferol (vitamin d2) (CALCIFEROL) capsule 50,000 Units 50,000 Units Oral QWEEKLY 50,000 Units at 03/19/20 0941 HYDROcodone-acetaminophen (NORCO) 10-325 mg tablet 1 tablet 1 tablet Oral Q4HPRN 1 tablet at 03/19/20 1647 morpHINE injection 2 mg 2 mg Slow IV Push Q6HPRN 2 mg at 03/19/20 2227 ramelteon (ROZEREM) tablet 8 mg 8 mg Oral QHS 8 mg at 03/19/20 2227 acetaminophen (TYLENOL) tablet 650 mg 650 mg Oral Q6HPRN enoxaparin (LOVENOX) injection 40 mg 40 mg Subcutaneous DAILY 40 mg at 03/17/20 1740 ipratropium-albuteroL (DUONEB) 0.5 mg-3 mg(2.5 mg base)/3 mL nebulizer solution 3 mL 3 mL Inhalation QID 3 mL at 03/17/20 1923 lactated ringers IV infusion 1,000 mL 1,000 mL IV Infusion CONTINUOUS 125 mL/hr at 03/19/20 2227 1,000 mL at 03/19/20 2227 nicotine (NICODERM) 21 mg/24 hr patch 1 Patch 1 Patch Topical Q24H 1 Patch at 03/19/20 0948 pantoprazole (PROTONIX) EC tablet 40 mg 40 mg Oral BID 40 mg at 03/19/20 2227 piperacillin-tazobactam (ZOSYN) 3.375 g in NaCl 0.9% (NS) 100 mL MINI-BAG 3.375 g IV Piggyback Q6H ABX 3.375 g at 03/20/20 0346 ISHING MACHINE OPERATOR Associated attestation - Rosangela Panchal MD - 03/20/2020 11:39 PM CSTI personally examined the patient on 03/20/[address] Morales's resident note as written. I actively participated in the decision-making process. Please see the resident's note for additional details. Yahaira Townsend MD - 03/19/2020 6:23 PM CST [facility] Progress Note Date of Service: 03/19/2020 18:24 Chief Complaint: abdominal pain and diarrhea 24-HOUR EVENTS: NAEO SUBJECTIVE: Diarrhea 3x daily for past several days, no change since last admission PHYSICAL EXAM: Vitals: 03/19/20 0502 03/19/20 0801 03/19/20 1212 03/19/20 1505 BP: 96/47 135/88 123/77 119/72 BP Location: Left arm Left arm Left arm Left arm Patient Position: Supine Sitting Sitting Supine Pulse: 73 74 87 79 Resp: Temp: 36.3 C (97.3 F) 35.7 C (96.3 F) 37.1 C (98.7 F) 37.2 C (99 F) TempSrc: Oral Oral Oral Oral SpO2: 96% 100% 99% 96% Weight: Height: General: alert and oriented x 3; no apparent distress HEENT: pupils equal, round, reactive to light; extraocular movements intact; oropharynx clear; moistmucous membranes Lungs: clear to auscultation bilaterally Cardio: S1, S2 normal; no murmurs, rubs or gallops, regular rate and rhythm Abdomen: soft; non-tender; non-distended; normoactive bowel sounds Extremities: no cyanosis, clubbing or edema Intake/Output Summary (Last 24 hours) at 03/19/2020 1824 Last data filed at 03/19/2020 0941 Gross per 24 hour Intake 1670 ml Output Net 1670 ml LABS/IMAGING - reviewed ASSESSMENT/PLAN Julio Nieto is a 34 year old male admitted to the hospital with: Abdominal Pain Concern for Enterocolitis Leukocytosis Tobacco use disorder ETOH use disorder Worsening abdominal distension and colonic distension on serial KUB. CT AP with enterocolitis. Pending fecal infectious workup, calprotectin and H. Pylori antigen - GI signed off - CBC, BMP, LFTs, Mg, Phos -CT APcompleted - c/w Zosyn at this time - started PPI BID for epigastric pain - Fluid resuscitation - pain uncontrolled with norco 10 Q6h - clear liquid diet Wheezing, mild intermittent asthma - Duoneb inhalers Pain: Uncontrolled [place] 10 Prophylaxis: DVT- enoxaparin Stress Ulcer: pantoprazole Code Status: addressed: Full Disposition Anticipated Discharge Date : 03/21 Barriers to Discharge: Worsening abdominal distension and colonic distension on serial KUB Yahaira Fatmata Townsend MD Internal Medicine, PGY1 [facility] Team Pager #[phone] HOSPITAL COURSE Julio Nieto is a 34 year old male with history oftobacco use(17 pack years + 6 months of dipping),childhood asthma,etoh use(6 pack beer per day), PUD, testicular vessel surgery as a teenagerpresenting with continued abdominal pain. Recently hospitalized for same complaint several days ago, infectious workup negative that time. Pending repeat infectious workup. GI following. CURRENT MEDICATIONS - reviewed. Current Facility-Administered Medications Medication Dose Route Frequency Last Rate Last Admin maalox:diphenhydrAMINE:lidocaine 2 % viscous 1:1:1 (FIRST-MOUTHWASH BLM) oral suspension 15 mL 15 mL Oral (Swish & Swallow) BIDPRN ergocalciferol (vitamin d2) (CALCIFEROL) capsule 50,000 Units 50,000 Units Oral QWEEKLY 50,000 Units at 03/19/20 0941 HYDROcodone-acetaminophen (NORCO) 10-325 mg tablet 1 tablet 1 tablet Oral Q4HPRN 1 tablet at 03/19/20 1647 morpHINE injection 2 mg 2 mg Slow IV Push Q6HPRN 2 mg at 03/19/20 1355 ramelteon (ROZEREM) tablet 8 mg 8 mg Oral QHS acetaminophen (TYLENOL) tablet 650 mg 650 mg Oral Q6HPRN enoxaparin (LOVENOX) injection 40 mg 40 mg Subcutaneous DAILY 40 mg at 03/17/20 1740 ipratropium-albuteroL (DUONEB) 0.5 mg-3 mg(2.5 mg base)/3 mL nebulizer solution 3 mL 3 mL Inhalation QID 3 mL at 03/17/20 1923 lactated ringers IV infusion 1,000 mL 1,000 mL IV Infusion CONTINUOUS 125 mL/hr at 03/19/20 1127 1,000 mL at 03/19/20 1127 nicotine (NICODERM) 21 mg/24 hr patch 1 Patch 1 Patch Topical Q24H 1 Patch at 03/19/20 0948 pantoprazole (PROTONIX) EC tablet 40 mg 40 mg Oral BID 40 mg at 03/19/20 0941 piperacillin-tazobactam (ZOSYN) 3.375 g in NaCl 0.9% (NS) 100 mL MINI-BAG 3.375 g IV Piggyback Q6H ABX 3.375 g at 03/19/20 1500 ISHING MACHINE OPERATOR Associated attestation - Rosangela Panchal MD - 03/20/2020 11:38 PM CSTI personally examined the patient on 03/19/[address] Townsend's resident note as written. I actively participated in the decision-making process. Please see the resident's note for additional details. Olivier Stockton MD - 03/19/2020 3:57 PM CSTGI Service Progress Note Date of Service: 03/19/2020 15:57 CC: abdominal pain SUBJECTIVE: Significantly better today. No abdominal pain, ambulating around the hospital. 1 BM today, liquid but less volume and frequency. Tolerating a regular diet without issues. CURRENT MEDICATIONS - reviewed. PHYSICAL EXAM: PE: BP 119/72 (BP Location: Left arm, Patient Position: Supine) | Pulse 79 | Temp 37.2 C (99 F) (Oral) | Resp 18 | Ht 1.702 m (5' 7.01") | Wt 72.6 kg (160 lb) | SpO2 96% | BMI 25.05 kg/m General: awake and alert, NAD HEENT/Eye: pupils equal, EOMI Neck: supple, no JVD Cardiovascular: RRR Respiratory: non-labored Gastrointestinal: soft, NT to palpation, ND, BS present Ext: no edema Skin: no lesions Neurologic: grossly non-focal Psychiatric: appropriate LABS/IMAGING - reviewed, pertinent results as below: ASSESSMENT/PLAN Julio Nieto is a 34 year old male admitted with 10 days of diarrhea with negative infectious workup initially, started on empiric abx without improvement of symptoms. Cross sectional imaging withdiffuse enterocolitis with elevated CRP. Fecal pathogen PCR is negative. abdominal pain improved today as well. Epigastric Abdominal Pain - improving Diarrhea - c/w PPI BID - f/u fecal calprotectin - can continue empiric treatment with abx - diet as tolerated - f/u hpsAg - patient to follow up in clinic for further evaluation and consideration of endoscopic evaluation once acute presentation resolves. Patient discussed with faculty Dr. Brown GI will sign off. Contact GI fellow with questions. Olivier Stockton MD Gastroenterology and Hepatology Fellow livier Stockton MD - 03/18/2020 4:04 PM CSTGI Service Progress Note Date of Service: 03/18/2020 16:04 CC: abdominal pain SUBJECTIVE: Today feels better, less abdominal pain. BM less frequency. States still liquid, however nursing staff reporting some solid component to BM. CURRENT MEDICATIONS - reviewed. PHYSICAL EXAM: PE: BP 138/75 (BP Location: Left arm, Patient Position: Supine) | Pulse 66 | Temp 36.7 C (98 F) (Oral) | Resp 18 | Ht 1.702 m (5' 7.01") | Wt 72.6 kg (160 lb) | SpO2 99% | BMI 25.05 kg/m General: awake and alert, NAD HEENT/Eye: pupils equal, EOMI Neck: supple, no JVD Cardiovascular: RRR Respiratory: non-labored Gastrointestinal: soft, NT to palpation, ND, BS present Ext: no edema Skin: no lesions Neurologic: grossly non-focal Psychiatric: appropriate LABS/IMAGING - reviewed, pertinent results as below: RUQ unremarkable ASSESSMENT/PLAN Julio Nieto is a 34 year old male admitted with 10 days of diarrhea with negative infectious workup initially, started on empiric abx without improvement of symptoms. Cross sectional imaging withdiffuse enterocolitis with elevated CRP. Fecal pathogen PCR is negative. abdominal pain improved today as well. Epigastric Abdominal Pain - improving Diarrhea - c/w PPI BID - f/u fecal calprotectin - c/w IVF and abx - diet as tolerated, would advance slowly - f/u hpsAg - serial abdominal exams to evaluate for peritonitis and daily KUB to evaluate for toxic megacolon - if workup negative, will consider flex sig for further evaluation. Patient seen and discussed with faculty Dr. Vergara Contact GI fellow with questions. Olivier Stockton MD Gastroenterology and Hepatology Fellow ISHING MACHINE OPERATOR Associated attestation - Thierno Vergara MD - 03/18/2020 5:25 PM CSTI have personally seen and examined the patient with Dr. Stockton. I agree with assessment and plan. I actively participated in the evaluation and decision making. Abdominal pain improved. Still having watery BM but only 2 BM today. He wants to advance diet. Overall, he appears improved. Will continue to follow. THIERNO SMITH, CENTRAL STERILE TECHNICIAN, DIVISION OF GASTROENTEROLOGY AND HEPATOLOGY. [facility]. Inocencio Morales, - 03/18/2020 9:10 AM CST [facility] Progress Note Date of Service: 03/18/2020 09:11 Days Since Admission: 0 Chief Complaint: Abdominal pain 24-HOUR EVENTS: Admitted to [facility] SUBJECTIVE: Continues to complain of 8/10 abdominal pain. Says that norco 10 is not really helping manage the pain. Had 1 BM yesterday that is diarrhea. No blood OBJECTIVE: Temp: [36.9 C (98.4 F)-37.6 C (99.6 F)] Pulse: [59-82] Resp: [16-20] BP: (101-136)/(52-75) MAP (mmHg): [65-92] Physical Exam: Gen: Well-developed, well-nourished, no acute distress Cardio: RRR Respiratory: CTAB GI: Soft with mild periumbilical tenderness, non-distended abdomen, +BS LABS/IMAGING - reviewed ASSESSMENT/PLAN Julio Niteo is a 34 year old male with PMH of tobacco use(17 pack years + 6 months of dipping), etoh use(6 pack beer per day), PUD, testicular vessel surgery as a teenager presenting with: Abdominal Pain Concern for Enterocolitis Leukocytosis Tobacco use disorder ETOH use disorder CT AP concerning for enterocolitis. Pending fecal infectious workup, calprotectin and H. Pylori antigen - GI following, appreciate recs - plan: scope if workup negative - CBC, BMP, LFTs, Mg, Phos - CT AP completed - c/w Zosyn at this time - started PPI BID for epigastric pain - Fluid resuscitation - pain uncontrolled with norco 10 Q6h - clear liquid diet Wheezing, mild intermittent asthma - Duoneb inhalers Pain: Uncontrolled [place] 10 Prophylaxis: DVT- enoxaparin Stress Ulcer: pantoprazole Code Status: addressed: Full Dr. Inocencio Morales Internal Medicine, PGY-1 Pager #: [phone] [place] Team END OF DAILY PROGRESS NOTE HOSPITAL COURSE Julio Nieto is a 34 year old male with history oftobacco use(17 pack years + 6 months of dipping), childhood asthma, etoh use(6 pack beer per day), PUD, testicular vessel surgery as a teenagerpresenting with continued abdominal pain. Recently hospitalized for same complaint several days ago, infectious workup negative that time. Pending repeat infectious workup. GI following. Discharge Planning: - CURRENT MEDICATIONS - reviewed. Current Facility-Administered Medications Medication Dose Route Frequency Last Rate Last Admin acetaminophen (TYLENOL) tablet 650 mg 650 mg Oral Q6HPRN enoxaparin (LOVENOX) injection 40 mg 40 mg Subcutaneous DAILY 40 mg at 03/17/20 1740 HYDROcodone-acetaminophen (NORCO) 10-325 mg tablet 1 tablet 1 tablet Oral Q6HPRN 1 tablet at 03/18/20 0323 ipratropium-albuteroL (DUONEB) 0.5 mg-3 mg(2.5 mg base)/3 mL nebulizer solution 3 mL 3 mL Inhalation QID 3 mL at 03/17/20 1923 lactated ringers IV infusion 1,000 mL 1,000 mL IV Infusion CONTINUOUS 125 mL/hr at 03/18/20 0624 1,000 mL at 03/18/20 0624 nicotine (NICODERM) 21 mg/24 hr patch 1 Patch 1 Patch Topical Q24H 1 Patch at 03/18/20 0907 pantoprazole (PROTONIX) EC tablet 40 mg 40 mg Oral BID 40 mg at 03/18/20 0908 piperacillin-tazobactam (ZOSYN) 3.375 g in NaCl 0.9% (NS) 100 mL MINI-BAG 3.375 g IV Piggyback Q6H ABX 3.375 g at 03/18/20 0907 ramelteon (ROZEREM) tablet 8 mg 8 mg Oral QHS 8 mg at 03/17/202040 ISHING MACHINE OPERATOR Associated attestation - Delilah Appiah MD - 03/18/2020 5:33 PM CSTI personally examined the patient on 03/18/[address] Morales's resident note as written. Patient with less abdominal distension but still with uncontrolled pain. Stool studies negativefor infection. C diff recently checked at previous hospitalization and negative so unable to check again per hospital policy. Continue with IV abx and analgesics for pain control. GI following and appreciate assistance in his care. I actively participated in the decision-making process. Please see the resident's note for additional details.Ronnell Crowley LMSW - 03/17/2020 11:10 AM CSTCare Management Social Functional Assessment Patient Name: Julio Nieto Age: [age] year old Sex: male Previous admit date: N/A Current diagnosis and co-morbidities: abdominal pain enterocolitis Readmission Questions: Was patient discharged from any acute care hospital within the last 30 days: No Social Functional Assessment: Primary language spoken/preferred: Bhutanese Mental Status: Alert & Oriented to Person,Place & Time Information given by: Self Patient's support system: Parent;Spouse Name and number of support system: Bettye Mclean @ [phone] (mother) and Olman Pena @ [phone] (girlfriend) Primary Business Information Manager: Self MPOA: No Living Arrangement: Home Address of living arrangement : [address] [place], [place] [id number] Persons living in home: Self Barriers to returning home: None Baseline functional status- ambulation: Independent Functional status-baseline personal care: Independent Baseline functional status- driving: Independent Baseline functional status- grocery shopping: Independent Functional status-baseline housekeeping: Independent Functional status-baseline meal prep: Independent Current functional status same as prior: Yes Do you have a PCP?: No Refered to: [facility] Home Health Care Agency: No Provider Services: No DME Company: No Equipment: None Hemodialysis: No Community resources utilized: None Funding Resources: Self Pay Prescription coverage plan: Self Pay Pharmacy where meds are filled: Other Other pharmacy: [facility] Anticipated services prior to disharge: Continue Medical Eval Expected mode of discharge transportation: Personal vehicle Additional Recommendations for DC: Pt works at [employer] and drinks almost everyday.Sw offered to provide AA information but pt refused.Sw provided Good Rx card. Recommended discharge plan: Home SFA Complete: Social Functional Assessment complete: Yes Alcohol Use Screening (AUDIT-C) How often do you have a drink containing alcohol?: 4 or more times a week SCORE: 4 How many drinks containing alcohol do you have on a typical day when you are drinking?: 3 or 4 drinks How often do you have six or more drinks on one occasion?: Never Total Score (AUDIT-C): 5 Did patient elect to have resources provided: No Actions taken: Discussed availability of resources Role of Care Management explained.Yes Ronnell Shrestha LMSW Log Cooker, Care Management ISHING MACHINE OPERATOR documented in this encounter H&P Notes Yahaira Townsend MD - 03/17/2020 4:38 AM CST MEDIC[facility]&P Patient Name: Julio Nieto : 1985 Admit Date: 03/17/2020 Primary Care Physician: PATIENT DOES NOT HAVE A PCP CHIEF COMPLAINT Abdominal Pain HISTORY OF PRESENT ILLNESS Julio Nieto is a 34 year old male with history of tobacco use (17 pack years + 6 months of dipping), childhood asthma, etoh use (6 pack beer per day), PUD, testicular vessel surgery as a teenagerpresenting with complaint of abdominal pain. Patient recently admitted to [facility] from 03/10/20 to 03/14/20 for complaints of abdominal pain and diarrhea. CT AP completed on 03/13/20 revealed no definitive diagnoses. He was negative for fecal leukocytes, C diff, no organisms isolated on fecal culture, giardia/cryptosporidium. He showed improvement when started on Zosyn and was discharged on cipro/flagy. Patient now presenting again with complaint of abdominal pain but without N/V. Blood work at OSH ER showed WBC 27.7 up from 14.2 on discharge, Lipase 601, T bili 0.4, ALP 68, ALT 11, AST 15. CT AP showed fluid filled loops of duodenum, jejunum and colon with mucosal enchancement and wall and fold thickening, suggestive of enterocolitis with no evidence of bowel obstruction. Patient transferred to [facility] for further evaluation. On arrival patient reports burning epigastric pain since yesterday around 3 pm, with pain migrating down to umbilical region. It came on suddenly. He has been taking his discharge antibiotics Cipro/Flagyl and had not eaten anything or had any alcohol. No chest pain. No nausea or vomiting. No fever or chills. 2-3 watery brown BMs yesterday.No sick contacts. PAST MEDICAL HISTORY Past Medical History: Diagnosis Date Smoker Testicular torsion PAST SURGICAL HISTORY Past Surgical History: Procedure Laterality Date OTHER hand surgery OTHER vascular surgery in testicle MEDICATIONS No current facility-administered medications on file prior to encounter. Current Outpatient Medications on File Prior to Encounter Medication Sig Dispense Refill ciprofloxacin HCl 500 mg tablet Take 1 tablet by mouth every 12 (twelve) hours for 3 days. 6 tablet 0 metroNIDAZOLE 250 mg tablet Take 2 tablets by mouth every 8 (eight) hours for 3 days. 18 tablet 0 nicotine 21 mg/24 hr patch Apply 1 Patch to area(s) every 24 (twenty-four) hours for 7 days. 7 Patch 0 ALLERGIES No Known Allergies FAMILY HISTORY Family History Problem Relation Age of Onset Coronary Heart Disease Father Liver failure Maternal Grandfather Cancer Paternal Grandmother Cancer Paternal Grandfather SOCIAL HISTORY Social History Tobacco Use Smoking status: Current Every Day Smoker Packs/day: 1.00 Types: Cigarettes Tobacco comment: probably will not stop Substance Use Topics Alcohol use: Yes Alcohol/week: 6.0 standard drinks Types: 6 Cans of beer per week Frequency: 4 or more times a week Drinks per session: 5 or 6 Drug use: Not Currently REVIEW OF SYSTEMS Constitutional: Negative HEENT: Negative Cardiovascular: Negative Respiratory: Negative Gastrointestinal: Abdominal Pain per HPI Genitourinary: Negative Musculoskeletal: Negative Neurological: Negative PHYSICAL EXAM Vitals Vitals: 03/17/20 0146 03/17/20 0200 03/17/20 0422 03/17/20 0424 BP: (!) 150/89 138/85 115/72 115/72 Pulse: 91 79 73 73 Resp: 18 18 Temp: 36.7 C (98 F) TempSrc: Oral SpO2: 99% 100% 97% 97% Weight: 72.6 kg (160 lb) Height: 1.702 m (5' 7") Temp: [36.7 C (98 F)] Pulse: [73-91] Resp: [18] BP: (115-150)/(72-89) MAP (mmHg): [86-105] SpO2 readings for the past 24 hrs: SpO2 03/17/20 0146 99 % 03/17/20 0200 100 % 03/17/20 0422 97 % 03/17/20 0424 97 % General: No apparent distress HEENT: able to track movement Neck: ROM intact Cardiovascular: sinus tachycardia, no murmurs Respiratory: diffuse wheezing bilaterally Abdomen: +BS, tender in umbilical region, + Rovsings sign, + psoas sign, + rebound tenderness : No suprapubic tenderness MSK: No lower extremity edema Neuro: Coherent to conversation LABS WBC 27.7 Hb 14.2 PLT 391 EOS 2% Cr 0.78 T bili 0.4 Lipase 601 ALP 68 ALT 11 AST [address] AP 03/17/20 FINDINGS: The lung bases are clear. The liver, gallbladder, spleen, adrenal glands and pancreas are within normal limits. The kidneys are normal in appearance bilaterally without hydronephrosis. No abdominal aortic aneurysm or dissection is appreciated. There is no free fluid in the pelvis. There is no bowel obstruction, widespread diverticulosis or acute diverticulitis. There is thickening of the wall and folds of jejunal loops in the abdomen and pelvis, with mucosal enhancement. There are air-fluid levels throughout nondilated loops of colon; there is thickening of the wall of the descending colon. The appendix is identified and within normal limits. Bone windows through the abdomen and pelvis demonstrate no osseous destructive lesion. There are multiple metallic densities anterior to the left psoas muscle, stable compared to the prior study. IMPRESSION Fluid-filled loops of duodenum, jejunum and colon, with mucosal enhancement and wall and fold thickening, suggestive of enterocolitis. There is no bowel obstruction. Chart Review: See HPI ASSESSMENT/PLAN Julio Nieto is a 34 year old male with PMH of tobacco use (17 pack years + 6 months of dipping), etoh use (6 pack beer per day), PUD, testicular vessel surgery as a teenager presenting with: Abdominal Pain Concern for Enterocolitis Leukocytosis Tobacco Abuse ETOH Abuse Patient recently admitted for concern of abdominal pain, workup unrevealing, but showed clinical improvement on Zosyn. He was transitioned to PO antibiotics and able to be discharged. Patient now returning with worsening abdominal pain, leukocytosis and CT AP suggestive of enterocolitis. Will restart Zosyn and consider GI consult for further recommendations. - Admit to [facility] - Vitals q4h, O2 per protocol - CBC, BMP, LFTs, Mg, Phos - CT AP completed - Will restart Zosyn at this time - Lactic Acid pending - Consider GI consultation for further recommendations - Fluid resuscitation - Protonix for possible peptic ulcer disease given alcohol use disorder Wheezing, mild intermittent asthma - Duoneb inhalers F: N/A E: Replete prn N: NPO pending GI evaluation Prophylaxis: Heparin start 03/18/20 pending discussion with GI Code: Full Disp: Pending Yahaira Townsend MD Internal Medicine, PGY2 [place] Team Pager #[phone] ISHING MACHINE OPERATOR Associated attestation - Delilah Appiah MD - 03/17/2020 1:13 PM CSTI personally examined the patient on 03/17/[address] Townsend's resident note as written. I actively participated in the decision-making process. Please see the resident's note for additional details. documented in this encounter Consult Notes Avel Pabon MD - 03/21/2020 7:17 AM CSTAssociated Order(s): CONSULT INFECTIOUS DISEASE INFECTIOUS DISEASES CONSULT NOTE Date of Service: 03/21/2020 Consultation requested by: Dr. Panchal Reason for Consultation: Patient with abdominal pain and diarrhea and concern for enterocolitis. Leukocytosis worsening despite zosyn. Chief Complaint: pain abdomen, diarrhea. History of Present Illness: Julio Nieto is a 34 year old male with history oftobacco use(17 pack years + 6 months of dipping), asthma, etoh use(6 pack beer per day), PUD, testicular vessel surgery as a teenagerpresenting with complaint of abdominal pain. Patient recently admitted to [facility] from 03/10/20 to 03/14/20 for complaints of abdominal pain and diarrhea. CT AP completed on 03/13/20 revealed no definitive diagnoses. He was negative for fecal leukocytes, C diff, no organisms isolated on fecal culture, giardia/cryptosporidium. He showed improvement when started on Zosyn and was discharged on cipro/flagy. Patient now presenting again with complaint of abdominal pain but without N/V. Blood work at OSH ER showed WBC 27.7 up from 14.2 on discharge, Lipase 601, T bili 0.4, ALP 68, ALT 11, AST 15. CT AP showed fluid filled loops of duodenum, jejunum and colon with mucosal enchancement and wall and fold thickening, suggestive of enterocolitis with no evidence of bowel obstruction. Patient transferred to [facility] for further evaluation. On arrival patient reports burning epigastric pain since yesterday around 3 pm, with pain migrating down to umbilical region. It came on suddenly. He has been taking his discharge antibiotics Cipro/Flagyl and had not eaten anything or had any alcohol. No chest pain. No nausea or vomiting. No fever or chills. 2-3 watery brown BMs yesterday.No sick contacts. Past Medical History: Past Medical History: Diagnosis Date Smoker Testicular torsion No Known Allergies Medications: Current Facility-Administered Medications Medication Dose Route Frequency Last Rate Last Admin lactobacillus acidophilus (ACIDOPHILLUS) 25 million cell -100 mg captab 1 tablet 1 tablet Oral QID 1 tablet at 03/20/201951 maalox:diphenhydrAMINE:lidocaine 2 % viscous 1:1:1 (FIRST-MOUTHWASH BLM) oral suspension 15 mL 15 mL Oral (Swish & Swallow) BIDPRN 15 mL at 03/20/202115 ergocalciferol (vitamin d2) (CALCIFEROL) capsule 50,000 Units 50,000 Units Oral QWEEKLY 50,000 Units at 03/19/20 0941 HYDROcodone-acetaminophen (NORCO) 10-325 mg tablet 1 tablet 1 tablet Oral Q4HPRN 1 tablet at 03/20/20 1701 morpHINE injection 2 mg 2 mg Slow IV Push Q6HPRN 2 mg at 03/21/20 0332 ramelteon (ROZEREM) tablet 8 mg 8 mg Oral QHS 8 mg at 03/20/202115 acetaminophen (TYLENOL) tablet 650 mg 650 mg Oral Q6HPRN enoxaparin (LOVENOX) injection 40 mg 40 mg Subcutaneous DAILY 40 mg at 03/17/20 1740 ipratropium-albuteroL (DUONEB) 0.5 mg-3 mg(2.5 mg base)/3 mL nebulizer solution 3 mL 3 mL Inhalation QID 3 mL at 03/17/20 1923 lactated ringers IV infusion 1,000 mL 1,000 mL IV Infusion CONTINUOUS 125 mL/hr at 03/21/20 0413 1,000 mL at 03/21/20 0413 nicotine (NICODERM) 21 mg/24 hr patch 1 Patch 1 Patch Topical Q24H 1 Patch at 03/20/20 0801 pantoprazole (PROTONIX) EC tablet 40 mg 40 mg Oral BID 40 mg at 03/20/20 1952 piperacillin-tazobactam (ZOSYN) 3.375 g in NaCl 0.9% (NS) 100 mL MINI-BAG 3.375 g IV Piggyback Q6H ABX 3.375 g at 03/21/20 0332 Social History: Social History Socioeconomic History Marital status: Single [...] Use Smoking status: Current Every Day Smoker Packs/day: 1.00 Types: Cigarettes Tobacco comment: probably will not stop Substance and Sexual Activity Alcohol use: Yes Alcohol/week: 6.0 standard drinks Types: 6 Cans of beer per week Frequency: 4 or more times a week Drinks per session: 5 or 6 Drug use: Not Currently Sexual activity: Not on file Lifestyle Physical activity Days per week: Not on file Minutes per session: Not on file Stress: Not on file Relationships Social connections Talks on phone: Not on file Gets together: Not on file Attends catholic service: Not on file Active member of [...] file Social History Narrative Not on file Family History: Family History Problem Relation Age of Onset Coronary Heart Disease Father Liver failure Maternal Grandfather Cancer Paternal Grandmother Cancer Paternal Grandfather Review of Systems: General: -fever, -chills Skin: -rash, -lesion HEENT: -headache Neck: -pain, -difficulty swallowing Heme: -bleeding disorder Resp: -cough, -shortness of breath Cardio: -dyspnea on exertion, -chest pain GI: +abdpain, -nausea, -vomiting, +diarrhea : -dysuria, -hematuria Neuro: -numbness, -weakness Physical Examination: Vitals: 03/20/20 1404 03/20/20 1659 03/20/20 2346 03/21/20 0433 BP: 126/85 128/86 125/76 116/57 BP Location: Left arm Patient Position: Sitting Pulse: 90 83 71 74 Resp: 18 18 18 18 Temp: 37.3 C (99.2 F) 37.2 C (99 F) 36.8 C (98.3 F) 36.4 C (97.5 F) TempSrc: Oral Oral Oral Oral SpO2: 100% 99% 98% 95% Weight: Height: General: alert and oriented, no apparent distress Eyes: EOMI, anicteric sclerae Neck: supple, no jvd ENT: oropharynx clear; moist mucous membranes Lungs: CTA b/l Cardio: S1, S2 normal; no murmurs GI: abdomen soft; non-tender; non-distended; Extremities: no edema Skin: warm and dry; no rash Neuro: alert, able to move all extremities. Psych: appropirate mood and affect Laboratory: WBC (10*3/L) Date Value 03/21/2020 21.73 (H) HGB (g/dL) Date Value 03/21/2020 13.3 PLT (10*3/L) Date Value 03/21/2020 480 (H) CREATININE (mg/dL) Date Value 03/21/2020 0.88 GLUCOSE (mg/dL) Date Value 03/21/2020 86 ALTv (U/L) Date Value 03/17/2020 11 AST(SGOT) (U/L) Date Value 03/17/2020 15 ALK PHOS (U/L) Date Value 03/17/2020 68 Microbiology: 03/17/20: Stool pcr panel negative. 03/17/20: Stool CDiff negative. 03/17/20: Bcx negative. F culture negative. F leucocytes negative. fobt+ Radiology: CT abdo 03/17/20 : Fluid-filled loops of duodenum, jejunum and colon, with mucosal enhancement and wall and fold thickening, suggestive of enterocolitis. There is no bowel obstruction. 03/17/20, Us abdo: hepatomegaly. Assessment: 34 year-old male with pain abdomen and ?diarrhea for 2 weeks. 15 lbs weight loss over 2 weeks, +stool guiac, negative infectious w/u so far. Patient says his pain improves after he has a bowel moment. Suspect alcoholic gastritis vs IBS vs IBD vs ischemic colitis. No fever, has leucocytosis likely reactive to the inflammation. Diarrhea has resolved. Per chart patient only had 1 bm since 03/17/20. Recommendations: Stop zosyn Can consider giving z cristela for travellers diarrhea. Sent stool ova parasites, giardia pcr, entameoba pcr and strongyloides abx(unlikely as no eosinophilia) Thank you for the consult. We will sign off please call if any test is positive. Case was d/w attending physician. Avel Pabon PGY4, ID ISHING MACHINE OPERATOR Associated attestation - Becky Cason MD - 03/22/2020 7:12 AM CSTI personally saw and evaluated the patient on this day and agree with the findings as documented by the electrician apprentice powerhouse. We discussed the assessments and management plan and I agree with the electrician apprentice powerhouse's documentation as written . Pt with enterocolitis of unclear origin - CT basically normal 03/13, with progression on 03/17. Extensive work-up for infectious causes negative so far; we have suggested a few other studies which could be sent but patient has no exposure history to suggest unusual pathogens (no consumption of uncooked meats or fish, wild meats, no pets, no travel). These can be done as outpatient if patient is being discharged. Likely will require colonoscopy if sx persist or recur. I doubt bacterial etiology persisting after several days of zosyn (bacterial enteritis does not require long therapy) but as patient is anxious about recurrence, a 3 day z-cristela could be considered (given increasing cipro R in many agents of bacterial diarrhea).Olivier Stockton MD - 03/17/2020 11:11 AM BURNISHING MACHINE OPERATOR Associated Order(s): CONSULT GASTROENTEROLOGY Department of Gastroenterology & Hepatology Consult Note Requesting Physician: Colt Russell, * Service: Medicine Reason for Consultation: please give recommendation or [id number] on 34M PMH alcohol use disorder, smoking, and asthma, presenting as bounceback admission due to continued diarrhea and abdominal pain. Please assist in evaluation. Date of Service: 03/17/2020 CHIEF COMPLAINT: Abdominal pain History of Present Illness Julio Nieto is a 34 year old /White male with past medical history ETOH use who presents with complaints of Persistent diarrhea and abodminal pain. Was seen about a week ago with similar symptoms, initially improved on zosyn and discharged on cipro/flagly for presumed colitis, all other infectious workup negative. Returns today with worse abdominal pain and leukocytosis and increase in diarrhea. CT read as colitis of small and large intestines without obstruction. Review of images shows diffusely inflammed intestines more on recent abdominal imaging. Previous workup included negative c. Diff, leukocytes, culture, O&P. Patient states symptoms started 10 days ago after eating a pizza. Symptoms consist of diarrhea and abdominal pain. He felt better in the hospital with IV abx and IV PPI however a couple of days after discharge continued to have same volume and frequency of diarrhea and severe epigastric abdominal pain does subtly radiates everywhere. Denies blood in his stool. No nausea or vomiting. Was taking cipro/flagyl he was discharged on as well as an OTC antiemetic. Antiemetic was helping but he finished thebottle and felt he took more than recommended so he came to the hospital. No f/c. Last BM prior to arrival to [facility]. No prior surgeries, Has a FH of multiple malignancies, thinks someone has colon cancer but doesn't know details. Smokes 1ppd, drinks 6 beers daily for 10 years. 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 PAST MEDICAL HISTORY Past Medical History: Diagnosis Date Smoker Testicular torsion PAST SURGICAL HISTORY Past Surgical History: Procedure Laterality Date OTHER hand surgery OTHER vascular surgery in testicle FAMILY HISTORY Family History Problem Relation Age of Onset Coronary Heart Disease Father Liver failure Maternal Grandfather Cancer Paternal Grandmother Cancer Paternal Grandfather ALLERGIES No Known Allergies MEDICATIONS reviewed SOCIAL HISTORY reviewed ROS: General: (-) fever, (-) chills, (-) weight change HEENT: (-) headache, (-) vision changes (-) sore throat Resp: (-) cough, (-) shortness of breath Cardio: (-) chest pain, (-) palpitations GI: per HPI : (-) dysuria, (-) increased urinary frequency Endo: (-) polyuria (-) polydipsia Neuro: (-) numbness, (-) weakness SHIRA: (-) muscle pain, (-) joint pain Skin: (-) rash, (-) lesion Heme: (-) bleeding disorder Psych: (-) anxiety , (-) depression PE: BP 127/75 (BP Location: Left arm) | Pulse 70 | Temp 37.6 C (99.6 F) (Oral) | Resp 18 | Ht 1.702 m (5' 7.01") | Wt 72.6 kg (160 lb) | SpO2 98% | BMI 25.05 kg/m General: comfortable and in no acute distress HEENT: no scleral icterus, no conjunctival pallor Neck: no rigidity, supple Cardiovascular: RRR Respiratory: non-labored Gastrointestinal: soft, tender to palpation epigastric and RUQ. Ext: no edema Skin: no rash Neurologic: grossly non-focal Psychiatric: normal affect LABORATORY: WBC 27.7 Hgb 14.2 MCV 91, Plt 391 Lipase 601 LFTs wnl ESR 55 RADIOLOGY: CT A/P (03/17/20): Fluid-filled loops of duodenum, jejunum and colon, with mucosal enhancement and wall and fold thickening, suggestive of enterocolitis. There is no bowel obstruction. CHART REVIEW: Previous Endoscopy: none ASSESSMENT and PLAN Julio Nieto is a 34 year old male with PMH as listed above, GI consulted for diarrhea and abdominal pain of unclear etiology. Imaging is consistent with inflammation of small and large bowel, more extensive on repeat imaging this admission. No abnormalities seen of pancreas, gallbladder appearsflat but cannot appreciate complete view on CT. Etiology appears unclear and unclear if one etiologyor multiple etiologies. Symptoms could be infectious, agree with fecal pathogens PCR, although C. Diff was tested a week ago, patient has not been on cipro so C. Diff is possible again. Cholecystitis is possible with RUQ pain. He has epigastric pain with drinking history however, lipase is not significantly elevated and on imaging pancreas appears normal. H. Pylori or PUD could explain epigastric pain. If all above workup negative can consider possible early manifestation of inflammatory bowel disease. Epigastric Abdominal Pain Diarrhea - agree with current workup of fecal pathogens pcr, fecal calprotectin. If able would also check C. Dff. - ESR and CRP elevated - check H. Pylori stool antigen - start PPI BID - RUQ US - serial abdominal exams to evaluate for peritonitis and daily KUB to evaluate for toxic megacolon - further recommendations pending above workup and evaluation Patient was seen and discussed with Dr. Vergara Please call with any questions. Olivier Stockton MD Gastroenterology and Hepatology Fellow ISHING MACHINE OPERATOR Associated attestation - Thierno Vergara MD - 03/17/2020 8:51 PM CSTI have personally seen and examined the patient with Dr. Stockton. I agree with assessment and plan. I actively participated in the evaluation and decision making. 34 year old male with 10 days of diarrhea, recent hospital admission with negative infectious workupand was empirically started on antibiotics. Now readmitted with epigastric pain, persistent diarrheaand CT abdomen shows diffuse enterocolitis. CRP is high. Awaiting repeat stool study results to assess for infectious vs inflammatory cause of colitis. Lactate normal and no blood in stools. Continue supportive care including IV fluids and antibiotics. If symptoms do no improve and infectious workup remains negative, may need flexible sigmoidoscopy. THIERNO SMITH, CENTRAL STERILE TECHNICIAN, DIVISION OF GASTROENTEROLOGY AND HEPATOLOGY. [facility]. Dottie Salazar MD - 03/17/2020 4:21 AM CST MEDICINE CONSULT H&P Date of Service: 03/17/2020 CHIEF COMPLAINT: abdominal pain History of Present Illness Patient is a 34 year old /White male who presents with complaints of epigastric and generalized abdominal pain. Symptoms started on Saturday or last week and persistently worsening. Pain described as burning and pressure. No radiation. Severity: 9, 10 out of 10. Patient treated with at least5 days of IV antibiotics while and [place] and discharged on additional cipro and flagyl. Patient states that he has been taking antibiotics as prescribed. No aggravating or relieving factors. Other symptoms include bloating, diarrhea, weight loss 12-20 lbs. within the last 1 week, hemorrhoids and night sweats. Patient denies bright red blood per rectum, coffee ground emesis, fever, hematemesis, nausea and vomiting. Symptoms are worsening. PAST MEDICAL HISTORY Past Medical History: Diagnosis Date Smoker Testicular torsion Past Surgical History: Procedure Laterality Date OTHER hand surgery OTHER vascular surgery in testicle Family History Problem Relation Age of Onset Coronary Heart Disease Father Liver failure Maternal Grandfather Cancer Paternal Grandmother Cancer Paternal Grandfather ALLERGIES No Known Allergies MEDICATIONS No current facility-administered medications on file prior to encounter. Current Outpatient Medications on File Prior to Encounter Medication Sig Dispense Refill ciprofloxacin HCl 500 mg tablet Take 1 tablet by mouth every 12 (twelve) hours for 3 days. 6 tablet 0 metroNIDAZOLE 250 mg tablet Take 2 tablets by mouth every 8 (eight) hours for 3 days. 18 tablet 0 nicotine 21 mg/24 hr patch Apply 1 Patch to area(s) every 24 (twenty-four) hours for 7 days. 7 Patch 0 SOCIAL HISTORY Social History Socioeconomic History Marital [...] Use Smoking status: Current Every Day Smoker Packs/day: 1.00 Types: Cigarettes Tobacco comment: probably will not stop Substance and Sexual Activity Alcohol use: Yes Alcohol/week: 6.0 standard drinks Types: 6 Cans of beer per week Frequency: 4 or more times a week Drinks per session: 5 or 6 Drug use: Not Currently Sexual activity: Not on file Lifestyle Physical activity Days per week: Not on file Minutes per session: Not on file Stress: Not on file Relationships Social connections Talks on phone: Not on file Gets together: Not on file Attends catholic service: Not on file Active member of [...] Narrative Not on file REVIEW OF SYSTEMS (-)=Negative,(+)=Positive General: (+) night sweats "all the time.", (-) fever, (-) chills HEENT: (-) headache, (-) nasal discharge, (-) sore throat Neck: (-) difficulty swallowing Heme: (-) bleeding disorder Resp: (-) cough, (-) shortness of breath Cardio: (-) chest pain GI: as stated in the HPI : (-) dysuria Endo: (-) diabetes, (-) thyroid disease Neuro: (-) numbness, (-) tingling Back: (-) pain SHIRA: (-) muscle pain, (-) joint pain Psych: (-) anxiety, (-) depression PHYSICAL EXAMINATION Vitals: 03/17/20 0146 03/17/20 0200 03/17/20 0422 03/17/20 0424 BP: (!) 150/89 138/85 115/72 115/72 Pulse: 91 79 73 73 Resp: 18 18 Temp: 36.7 C (98 F) TempSrc: Oral SpO2: 99% 100% 97% 97% Weight: 72.6 kg (160 lb) Height: 1.702 m (5' 7") General: alert and oriented; no apparent distress HEENT: normocephalic atraumatic, dry mucous membranes Lungs: clear to auscultation bilaterally Cardio: S1, S2 normal; no murmurs, rubs or gallops Abdomen: soft; non-tender; distended; normoactive bowel sounds : not examined Rectal: not examined Extremities: no clubbing, cyanosis, or edema Neuro: no focal deficits, cranial nerves II through XII intact LABS - reviewed IMAGING - reviewed CHART REVIEWED ASSESSMENT/PLAN Acute abdominal pain secondary enterocolitis Tobacco Abuse Alcohol Abuse Leukocytosis with bandemia Elevated lipase Hypocalemia PLAN: Discussed with Dr. Betancur in the ER. Patient unresponsive to antibiotic therapy for now over 1 week. Patient's symptoms suggest possible autoimmune etiology. We have no GI coverage over this holiday weekend. Patient will likely need, at minimum, GI consult and possible endoscopy for definitive diagnosis. Will order vitamin D and HIV. Otherwise recommend transfer for higher level of care. documented in this encounter ED Notes Calli Win RN - 03/17/2020 5:23 AM CSTPatient report given to SHARRON Jesus alli Win RN - 03/17/2020 4:48 AM CSTPT A&OX4, RESP EVEN AND UNLABORED, SKIN W&D AND NORMAL COLOR. PT GIVEN MED PER MD ORDERS, PTTOLERATED WELL, NO CHANGE TO IV SITE. PT AWARE OF PLAN OF CARE AND DENIES ANY CONCERNS. WILL CONTINUE TO MONITOR. Calli Starks RN - 03/17/2020 2:46 AM CSTPT A&OX4, RESP EVEN AND UNLABORED, SKIN W&D AND NORMAL COLOR. PT GIVEN MED PER MD ORDERS, PT TOLERATED WELL, NO CHANGE TO IV SITE. PT AWARE OF PLAN OF CARE AND DENIES ANY CONCERNS. WILL CONTINUE TO MONITOR. Calli Starks RN - 03/17/2020 1:43 AM CSTepigastric pain that started 1 weeks ago, patient was discharge on Saturday from hear dx with bacterial infection. Patient states the pain has just increased. Adryan Nice MD - 03/17/2020 1:38 AM CST [facility] EMERGENCY DEPARTMENT ENCOUNTER Demographics Patient Name: Julio Nieto Date of : 1985 34 year old Treatment Room: TX5/TX5 Primary Care Physician: PATIENT DOES NOT HAVE A PCP Pre Hospital Care Patient Escorted by: Self [9] Mode of Arrival: Personal means [1] EMS Treatment Prior to ED Arrival: [employer] [employer]ER treatment: None Chief complaint Chief Complaint Patient presents with Abdominal Pain History of present illness HPI 34 year-old man recently admitted to the hospital for possible acute cholecystitis, patient was transferred to [place] where US showed no evidence of Cholecystitis, seen and cleared by Gen Surgery. Patient was subsequent discharged home. He returns today complaining of worsening of symptoms. No na usea or vomiting. Active smoker and drinker. No other chronic medical problems or medications. Past Medical and Social History Past Medical History: Diagnosis Date Smoker Testicular torsion Social History Tobacco Use Smoking status: Current Every Day Smoker Packs/day: 1.00 Types: Cigarettes Tobacco comment: probably will not stop Substance Use Topics Alcohol use: Yes Alcohol/week: 6.0 standard drinks Types: 6 Cans of beer per week Frequency: 4 or more times a week Drinks per session: 5 or 6 Drug use: Not Currently Past Surgical History Past Surgical History: Procedure Laterality Date OTHER hand surgery OTHER vascular surgery in testicle Medications Medications FENTanyl PF (SUBLIMAZE (PF)) injection 50 mcg (has no administration in time range) NaCl 0.9% (NS) bolus infusion 1,000 mL (0 mL IV Infusion Stopped 03/17/20 0329) maalox:diphenhydrAMINE:lidocaine 2 % viscous 1:1:1 (FIRST-MOUTHWASH BLM) oral suspension 15 mL (15 mL Oral Given 03/17/20 0219) iohexol (OMNIPAQUE 350 BULK-150 mL) injection 120 mL (120 mL Intravenous Given 03/17/20 0245) FENTanyl PF (SUBLIMAZE (PF)) injection 50 mcg (50 mcg Slow IV Push Given 03/17/20 0243) piperacillin-tazobactam (ZOSYN) 3.375 g in NaCl 0.9% (NS) 100 mL MINI-BAG (3.375 g IV Piggyback Given 03/17/20 0356) Allergies No Known Allergies Review of Systems Review of Systems Constitutional: Negative. HENT: Negative. Eyes: Negative. Respiratory: Negative. Breasts: Negative. Cardiovascular: Negative. Gastrointestinal: Positive for abdominal pain. Genitourinary: Negative. Musculoskeletal: Negative. Skin: Negative. Neurological: Negative. Psychiatric/Behavioral: Negative. Endocrine: Endocrine negative Physical Exam BP 115/72 | Pulse 73 | Temp 36.7 C (98 F) (Oral) | Resp 18 | Ht 1.702 m (5' 7") | Wt 72.6 kg (160 lb) | SpO2 97% | BMI 25.06 kg/m Physical Exam Vitals signs and nursing note reviewed. Constitutional: General: He is not in acute distress. Appearance: He is well-developed and normal weight. He is not ill-appearing. HENT: Head: Normocephalic and atraumatic. Right Ear: External ear normal. Left Ear: External ear normal. Nose: Nose normal. No congestion or rhinorrhea. Mouth/Throat: Mouth: Mucous membranes are moist. Pharynx: Oropharynx is clear. No oropharyngeal exudate or posterior oropharyngeal erythema. Eyes: General: Right eye: No discharge. Left eye: No discharge. Conjunctiva/sclera: Conjunctivae normal. Pupils: Pupils are equal, round, and reactive to light. Neck: Musculoskeletal: Normal range of motion. No neck rigidity or muscular tenderness. Cardiovascular: Rate and Rhythm: Normal rate and regular rhythm. Heart sounds: Normal heart sounds. Pulmonary: Effort: Pulmonary effort is normal. No respiratory distress. Breath sounds: Normal breath sounds. No stridor. No wheezing or rhonchi. Abdominal: General: Bowel sounds are normal. There is no distension. Palpations: Abdomen is soft. There is no mass. Tenderness: There is abdominal tenderness. There is guarding. There is no rebound. Hernia: No hernia is present. Musculoskeletal: Normal range of motion. General: No swelling, tenderness, deformity or signs of injury. Skin: Capillary Refill: Capillary refill takes less than 2 seconds. Coloration: Skin is not jaundiced or pale. Findings: No bruising or erythema. Neurological: Mental Status: He is alert and oriented to person, place, and time. Cranial Nerves: No cranial nerve deficit. Sensory: No sensory deficit. Motor: No weakness. Coordination: Coordination normal. Psychiatric: Behavior: Behavior normal. Thought Content: Thought content normal. Judgment: Judgment normal. Labs and Studies Recent Results (from the past 24 hour(s)) CBC with Differential Collection Time: 03/17/20 1:52 AM Result Value Ref Range WBC 27.70 (H) 4.20 - 10.70 10*3/L RBC 4.58 4.26 - 5.52 10*6/L HGB 14.2 12.2 - 16.4 g/dL HCT 42.0 38.4 - 49.3 % MCV 91.7 81.7 - 95.6 fL MCH 31.0 26.1 - 32.7 pg MCHC 33.8 31.2 - 35.0 g/dL RDW-SD 42.3 38.5 - 51.6 fL RDW-CV 12.6 12.1 - 15.4 % PLT 391 (H) 150 - 328 10*3/L MPV 9.3 (L) 9.8 - 13.0 fL NRBC/100 WBC 0.0 0.0 - 10.0 /100 WBCs NRBC x10^3 <0.01 10*3/L SEG % 63 33 - 76 % BAND % 12 (H) 0 - 1 % LYMPH % 16 14 - 54 % MONO % 7 (H) 0 - 4 % EOS % 2 0 - 3 % ANC 20.77 (H) 1.99 - 6.95 10*3/uL TOXIC CHANGES Present (A) PLT ESTIMATE Increased (A) Normal GIANT PLATELETS Present (A) (none) Basic Metabolic Panel (NA, K, CL, CO2, GLUCOSE, BUN, CREATININE, CA) Collection Time: 03/17/20 1:52 AM Result Value Ref Range NA 138 135 - 145 mmol/L K 3.9 3.5 - 5.0 mmol/L CL 103 98 - 108 mmol/L CO2 TOTAL 27 23 - 31 mmol/L AGAP 8 2 - 16 BUN 10 7 - 23 mg/dL GLUCOSE 121 (H) 70 - 110 mg/dL CREATININE 0.78 0.60 - 1.25 mg/dL CALCIUM 7.5 (L) 8.6 - 10.6 mg/dL eGFR Calculation (Non-) 115.3 mL/min/1.73m2 eGFR Calculation () 139.8 mL/min/1.73m2 Hepatic Function Panel (ALB, T.PRO, BILI T, BU/BC, ALT, AST, ALK PHOS) Collection Time: 03/17/20 1:52 AM Result Value Ref Range TOTAL BILI 0.4 0.1 - 1.1 mg/dL BILI UNCON 0.2 0.1 - 1.1 mg/dL BILI CONJ 0.0 0.0 - 0.3 mg/dL T PROTEIN 6.5 6.3 - 8.2 g/dL ALBUMIN 3.5 3.5 - 5.0 g/dL ALK PHOS 68 34 - 122 U/L ALTv 11 5 - 50 U/L AST(SGOT) 15 13 - 40 U/L Lipase Serum Collection Time: 03/17/20 1:52 AM Result Value Ref Range LIPASE 601 (H) 0 - 220 U/L COVID-19 (ID NOW RAPID TESTING) Collection Time: 03/17/20 3:27 AM Specimen: NASOPHARYNGEAL SWAB Result Value Ref Range SARS-CoV-2 Rapid ID NOW Not Detected Not Detected Hospital Encounter on 03/17/20 CT ABDOMEN PELVIS W CONTRAST Narrative Ordering physician: ADRYAN BETANCUR Indication: Acute abdominal pain and distention COMPARISON: CT the abdomen and pelvis dated 03/13/2020 TECHNIQUE: Axial images of the abdomen and pelvis are performed following administration of intravenous contrast material. Images were reformatted in the coronal and sagittal plane. CT scan was performed according to ALARA (as low as reasonably achievable) policy. FINDINGS: The lung bases are clear. The liver, gallbladder, spleen, adrenal glands and pancreas are within normal limits. The kidneys are normal in appearance bilaterally without hydronephrosis. No abdominal aortic aneurysm or dissection is appreciated. There is no free fluid in the pelvis. There is no bowel obstruction, widespread diverticulosis or acute diverticulitis. There is thickening of the wall and folds of jejunal loops in the abdomen and pelvis, with mucosal enhancement. There are air-fluid levels throughout nondilated loops of colon; there is thickening of the wall of the descending colon. The appendix is identified and within normal limits. Bone windows through the abdomen and pelvis demonstrate no osseous destructive lesion. There are multiple metallic densities anterior to the left psoas muscle, stable compared to the prior study. Impression Fluid-filled loops of duodenum, jejunum and colon, with mucosal enhancement and wall and fold thickening, suggestive of enterocolitis. There is no bowel obstruction. RL: [id number] AFC: [id number] Orders and Treatments Orders Placed This Encounter Procedures CT ABDOMEN PELVIS W CONTRAST CBC with Differential Basic Metabolic Panel (NA, K, CL, CO2, GLUCOSE, BUN, CREATININE, CA) Hepatic Function Panel (ALB, T.PRO, BILI T, BU/BC, ALT, AST, ALK PHOS) Lipase Serum COVID-19 (ID NOW RAPID TESTING) LAB ONLY COVID INTERPRETATION VITAMIN D, 25-OH HIV 1/2 AG-AB WITH REFLEX Orders Placed This Encounter Medications NaCl 0.9% (NS) bolus infusion 1,000 mL maalox:diphenhydrAMINE:lidocaine 2 % viscous 1:1:1 (FIRST-MOUTHWASH BLM) oral suspension 15 mL iohexol (OMNIPAQUE 350 BULK-150 mL) injection 120 mL FENTanyl PF (SUBLIMAZE (PF)) injection 50 mcg piperacillin-tazobactam (ZOSYN) 3.375 g in NaCl 0.9% (NS) 100 mL MINI-BAG FENTanyl PF (SUBLIMAZE (PF)) injection 50 mcg Patient's Medications START taking these medications No medications on file CONTINUE taking these medications which have NOT CHANGED CIPROFLOXACIN HCL 500 MG TABLET Take 1 tablet by mouth every 12 (twelve) hours for 3 days. METRONIDAZOLE 250 MG TABLET Take 2 tablets by mouth every 8 (eight) hours for 3 days. NICOTINE 21 MG/24 HR PATCH Apply 1 Patch to area(s) every 24 (twenty-four) hours for 7 days. START taking Modified Medications as Prescribed No medications on file STOP taking these medications No medications on file Procedures Procedures MDM & Notes Coding Patient was evaluated for the complaint of Abdominal Pain ED Course as of Mar 17 440 Luh Mar 17, 2020 0437 Discussed with Hospitalist at [facility] for admission. Evaluated at bedside by Hospitalist and recommended transfer to [place] for GI/Surgery services (currently not available at [facility]). Patient remains stable with elevated WBC and enterocolitis/ pancreatitis despite outpatient abx from previous admission in [place]. Discussed with Dr. Devin che for admission and further evaluation. [JJ] ED Course User Index [JJ] Adryan Betancur MD History, physical exam findings, results of visit, differential diagnosis, medication regimens and plan of future care have been considered. Additional MDM may be found in the ED course. Differential diagnosis considered and final disposition made based on information gathered during evaluation and may not be completely ruled out. Vital signs were rechecked before final disposition and determined to be stable. Diagnoses ICD-10-CM ICD-9-CM 1. Epigastric pain R10.13 789.06 2. Enterocolitis K52.9 558.9 3. Leukocytosis, unspecified type D72.829 288.60 4. Acute pancreatitis, unspecified complication status, unspecified pancreatitis type K85.90 577.0 Disposition and Condition ED Disposition ED Disposition Condition Comment Transfer - [facility] to IP/Obs Adryan Betancur MD, FACEP, FAAEM Penology Teacher of Emergency and Internal Medicine [facility] #[id number] documented in this encounter Miscellaneous Notes Care Plan - Joann Romero RN - 03/22/2020 4:01 PM BURNISHING MACHINE OPERATOR Problem: Pain Goal: Control of pain at or below patient's documented comfort goal 03/22/2020 1601 by Joann Romero RN Outcome: Adequate for discharge 03/22/2020 1601 by Joann Romero RN Outcome: Progressing as expected 03/22/2020 1600 by Joann Romero RN Outcome: Progressing as expected Goal: Reduction in pain sensation 03/22/2020 1601 by Joann Romero RN Outcome: Adequate for discharge 03/22/2020 1601 by Joann Romero RN Outcome: Progressing as expected 03/22/2020 1600 by Joann Romero RN Outcome: Progressing as expected Problem: Discharge Planning Goal: Absence of venous thromboembolism 03/22/2020 1601 by Joann Romero RN Outcome: Adequate for discharge 03/22/2020 1601 by Joann Romero RN Outcome: Progressing as expected 03/22/2020 1600 by Joann Romero RN Outcome: Progressing as expected Goal: Adequate for discharge 03/22/2020 1601 by Joann Romero RN Outcome: Adequate for discharge 03/22/2020 1601 by Joann Romero RN Outcome: Progressing as expected 03/22/2020 1600 by Joann Romero RN Outcome: Progressing as expected Goal: Effective communication 03/22/2020 1601 by Joann Romero RN Outcome: Adequate for discharge 03/22/2020 1601 by Joann Romero RN Outcome: Progressing as expected 03/22/2020 1600 by Joann Romero RN Outcome: Progressing as expected Problem: Falls, Risk of Goal: Absence of falls 03/22/2020 1601 by Joann Romero RN Outcome: Adequate for discharge 03/22/2020 1601 by Joann Romero RN Outcome: Progressing as expected 03/22/2020 1600 by Joann Romero RN Outcome: Progressing as expected Problem: Infection Risk Goal: Absence of infection 03/22/2020 1601 by Joann Romero RN Outcome: Adequate for discharge 03/22/2020 1601 by Joann Romero RN Outcome: Progressing as expected 03/22/2020 1600 by Joann Romero RN Outcome: Progressing as expected Problem: Discharge Planning Goal: Knowledge of personal stroke risk factors 03/22/2020 1601 by Joann Romero RN Outcome: Adequate for discharge 03/22/2020 1601 by Joann Romero RN Outcome: Progressing as expected Goal: Knowledge of stroke warning signs 03/22/2020 1601 by Joann Romero RN Outcome: Adequate for discharge 03/22/2020 1601 by Joann Romero RN Outcome: Progressing as expected are Plan - Joann Romero RN - 03/22/2020 12:30 PM BURNISHING MACHINE OPERATOR Problem: Pain Goal: Control of pain at or below patient's documented comfort goal 03/22/2020 1601 by Joann Romero RN Outcome: Progressing as expected 03/22/2020 1600 by Joann Romero RN Outcome: Progressing as expected Goal: Reduction in pain sensation 03/22/2020 1601 by Joann Romero RN Outcome: Progressing as expected 03/22/2020 1600 by Joann Romero RN Outcome: Progressing as expected Problem: Discharge Planning Goal: Absence of venous thromboembolism 03/22/2020 1601 by Joann Romero RN Outcome: Progressing as expected 03/22/2020 1600 by Joann Romero RN Outcome: Progressing as expected Goal: Adequate for discharge 03/22/2020 1601 by Joann Romero RN Outcome: Progressing as expected 03/22/2020 1600 by Joann Romero RN Outcome: Progressing as expected Goal: Effective communication 03/22/2020 1601 by Joann Romero RN Outcome: Progressing as expected 03/22/2020 1600 by Joann Romero RN Outcome: Progressing as expected Problem: Falls, Risk of Goal: Absence of falls 03/22/2020 1601 by Joann Romero RN Outcome: Progressing as expected 03/22/2020 1600 by Joann Romero RN Outcome: Progressing as expected Problem: Infection Risk Goal: Absence of infection 03/22/2020 1601 by Joann Romero RN Outcome: Progressing as expected 03/22/2020 1600 by Joann Romero RN Outcome: Progressing as expected Problem: Discharge Planning Goal: Knowledge of personal stroke risk factors Outcome: Progressing as expected Goal: Knowledge of stroke warning signs Outcome: Progressing as expected are Broderick Camacho RN - 03/22/2020 1:12 AM BURNISHING MACHINE OPERATOR Problem: Pain Goal: Control of pain at or below patient's documented comfort goal Outcome: Progressing as expected Goal: Reduction in pain sensation Outcome: Progressing as expected Problem: Discharge Planning Goal: Absence of venous thromboembolism Outcome: Progressing as expected Goal: Adequate for discharge Outcome: Progressing as expected Goal: Effective communication Outcome: Progressing as expected Problem: Falls, Risk of Goal: Absence of falls Outcome: Progressing as expected Problem: Infection Risk Goal: Absence of infection Outcome: Progressing as expected are Joann Espinoza RN - 03/21/2020 10:30 AM BURNISHING MACHINE OPERATOR Problem: Pain Goal: Control of pain at or below patient's documented comfort goal Outcome: Progressing as expected Goal: Reduction in pain sensation Outcome: Progressing as expected Problem: Discharge Planning Goal: Absence of venous thromboembolism Outcome: Progressing as expected Goal: Adequate for discharge Outcome: Progressing as expected Goal: Effective communication Outcome: Progressing as expected Problem: Falls, Risk of Goal: Absence of falls Outcome: Progressing as expected Problem: Infection Risk Goal: Absence of infection Outcome: Progressing as expected are Plan - Jenny Leiva RN - 03/21/2020 7:36 AM BURNISHING MACHINE OPERATOR Problem: Pain Goal: Control of pain at or below patient's documented comfort goal Outcome: Progressing as expected Goal: Reduction in pain sensation Outcome: Progressing as expected Problem: Discharge Planning Goal: Absence of venous thromboembolism Outcome: Progressing as expected Goal: Adequate for discharge Outcome: Progressing as expected Goal: Effective communication Outcome: Progressing as expected Problem: Falls, Risk of Goal: Absence of falls Outcome: Progressing as expected Problem: Infection Risk Goal: Absence of infection Outcome: Progressing as expected are Plan - Joseluis Hardy RN - 03/20/2020 12:11 PM BURNISHING MACHINE OPERATOR Problem: Pain Goal: Control of pain at or below patient's documented comfort goal Outcome: Progressing as expected Goal: Reduction in pain sensation Outcome: Progressing as expected Problem: Discharge Planning Goal: Absence of venous thromboembolism Outcome: Progressing as expected Goal: Adequate for discharge Outcome: Progressing as expected Goal: Effective communication Outcome: Progressing as expected Problem: Falls, Risk of Goal: Absence of falls Outcome: Progressing as expected Problem: Infection Risk Goal: Absence of infection Outcome: Progressing as expected [facility] Antimicrobial Stewardship Program - Broderick Ngo MD - 03/20/2020 10:14 AM BURNISHING MACHINE OPERATOR Antimicrobial Stewardship Program (ASP) Note This patient is hospitalized with abdominal pain and leukemoid reaction, imaging concerning for enterocolitis. He has completed 10 days of broad spectrum antibacterials without resolution. White blood cell count is increased despite antibacterials. Microbiology results show negative GI PCR panel, negative fecal culture, negative fecal leukocytes, and negative C diff. Fecal occult blood is positive. The ASP recommends stopping antibacterials, and pursuing additional diagnostic work-up for symptoms and abnormal imaging. Consider formal ID consult. Thank you for your time and please don't hesitate to call with questions or concerns. Broderick Ngo M.D., Ph.D. Antimicrobial Stewardship Program 03/20/2020 10:14 AM are Jenny Zazueta RN - 03/20/2020 7:17 AM BURNISHING MACHINE OPERATOR Problem: Pain Goal: Control of pain at or below patient's documented comfort goal Outcome: Progressing as expected Goal: Reduction in pain sensation Outcome: Progressing as expected Problem: Discharge Planning Goal: Absence of venous thromboembolism Outcome: Progressing as expected Goal: Adequate for discharge Outcome: Progressing as expected Goal: Effective communication Outcome: Progressing as expected Problem: Falls, Risk of Goal: Absence of falls Outcome: Progressing as expected Problem: Infection Risk Goal: Absence of infection Outcome: Progressing as expected are Gabi Morgan RN - 03/19/2020 3:27 AM BURNISHING MACHINE OPERATOR Problem: Pain Goal: Control of pain at or below patient's documented comfort goal Outcome: Progressing as expected Goal: Reduction in pain sensation Outcome: Progressing as expected Problem: Discharge Planning Goal: Absence of venous thromboembolism Outcome: Progressing as expected Goal: Adequate for discharge Outcome: Progressing as expected Goal: Effective communication Outcome: Progressing as expected Problem: Falls, Risk of Goal: Absence of falls Outcome: Progressing as expected Problem: Infection Risk Goal: Absence of infection Outcome: Progressing as expected are Genny Duarte RN - 03/18/2020 4:58 AM BURNISHING MACHINE OPERATOR Problem: Pain Goal: Control of pain at or below patient's documented comfort goal Outcome: Progressing as expected Goal: Reduction in pain sensation Outcome: Progressing as expected Problem: Discharge Planning Goal: Absence of venous thromboembolism Outcome: Progressing as expected Goal: Adequate for discharge Outcome: Progressing as expected Goal: Effective communication Outcome: Progressing as expected Problem: Falls, Risk of Goal: Absence of falls Outcome: Progressing as expected Problem: Infection Risk Goal: Absence of infection Outcome: Progressing as expected are Teri Rios RN - 03/17/2020 8:39 AM BURNISHING MACHINE OPERATOR Problem: Pain Goal: Control of pain at or below patient's documented comfort goal Outcome: Not progressing as expected Goal: Reduction in pain sensation Outcome: Not progressing as expected Problem: Discharge Planning Goal: Absence of venous thromboembolism Outcome: Not progressing as expected Goal: Adequate for discharge Outcome: Not progressing as expected Goal: Effective communication Outcome: Not progressing as expected Problem: Falls, Risk of Goal: Absence of falls Outcome: Not progressing as expected Problem: Infection Risk Goal: Absence of infection Outcome: Not progressing as expected D Nurse Note - Calli Win RN - 03/17/2020 6:02 AM CSTPatient transferred [place] [address] for diagnosis of epigastric pain, Enterocolitis, Leukocytosis, Acute Pancreatitis Patient agrees to transfer/admit plan and verbalized understanding of plan of care, family aware of plan Patient awake alert, oriented, resp reg unlabored, skin w/d PIV patent, no s/s infiltration noted, No adverse reaction to medications given while in ED. Report given to [facility] EMS personnel D Nurse Note - Kimberly Rondon PCT - 03/17/2020 5:21 AM [facility] ETA per [place], 15 minutes @ 05:23 ISHING MACHINE OPERATOR documented in this encounter Plan of Treatment Name Type Priority Associated Diagnoses Date/Ti me XR KUB IMAGING Routine Epigastric pain 03/18/2020 4:25 AM BURNISHING MACHINE OPERATOR XR KUB IMAGING Routine Epigastric pain 03/19/2020 9:07 AM Gastroenteritis BURNISHING MACHINE OPERATOR XR KUB IMAGING STAT Enterocolitis 03/20/2020 4: 22 PM BURNISHING MACHINE OPERATOR XR KUB IMAGING Routine Gastroenteritis 03/21/2020 5:35 AM BURNISHING MACHINE OPERATOR OVA AND PARASITE LAB Routine 03/21/2020 9:25 PM EXAM FECAL BURNISHING MACHINE OPERATOR Name Type Priority Associated Diagnoses Order S chedule Lactic Acid Whole Blood LAB Routine STAT for 1 Occurrences starting 2019 CBC with Differential LAB Routine EVERY MORNING AT 0400 for 1 Weeks sta rting 03/20/2020 unti l 03/26/2020, 3 c ompleted Basic Metabolic Panel (NA, LAB Routine E VERY MORNING AT 0400 K, CL, CO2, GLUCOSE, BUN, fo r 1 Weeks starting CREATININE, CA) 03/20/2020 u ntil 03/26/2020, 3 c ompleted OVA AND PARASITE EXAM FECAL LAB Routine ONCE for 1 Occurrences starting 2019 until 0 GIARDIA CRYPTOSPORIDIUM AG LAB Routine O NCE for 1 Occurrences SCR starting 2019 until 0 Health Maintenance Due Date Last Done Comments VARICELLA VACCINES (1 of 2 - 2-dose childhood series) 06/17/1988 PNEUMOCOCCAL 0-64 YEARS COMBINED SERIES (1 of 1 - 06/17/1993 PPSV23) Depression Screening 1999 DTaP,Tdap,and Td Vaccines (1 - Tdap) 06/17/2006 INFLUENZA VACCINE (#1) 2019 documented as of this encounter Procedures Procedure Name Priority Date/Time Associated Diagnosis Comme nts CBC WITH DIFF Routine 03/22/2020 5:07 Results fo r this AM BURNISHING MACHINE OPERATOR procedure are i n the results section. BASIC METABOLIC Routine 03/22/2020 5:07 Results for this PANEL (NA, K, CL, AM BURNISHING MACHINE OPERATOR procedure are in CO2, GLUCOSE, BUN, the resul ts CREATININE, CA) section. XR KUB Routine 03/21/2020 5:35 Gastroenteritis AM BURNISHING MACHINE OPERATOR Procedure Note - [facility] In[facility] User - 03/21/2020 4:13 PM BURNISHING MACHINE OPERATOR EXAM: XR KUB HISTORY: 34 years-old Male p resenting with abdominal pain COMPARISON: 03/20/2020, 02/23, 03/18/2020 TECHNIQUE: Frontal views of the abdomen and pelvis were obtained. FINDINGS: Supine views of the abdomen. The visualized lung bases are clear. Scattered gas is seen in the small and large bowel. No evidence of dilated bowel. No abnormal calcifications or r adiopaque stones are identified. No acute bony abnormalities are noted. Sof t tissues are unremarkable. Surgical coils project over the left hemipe lvis. Hepatomegaly measuring 22 cm craniocaudal dimension. IMPRESSION No acute intra-abdominal abn ormality. Preliminary Report Dictated by Resident: Jazmin Garcia CBC WITH DIFF Routine 03/21/2020 3:37 AM Results for this BURNISHING MACHINE OPERATOR procedure are i n the results section . BASIC METABOLIC PANEL Routine 03/21/2020 3:37 AM Results for this (NA, K, CL, CO2, BURNISHING MACHINE OPERATOR procedure a re in the GLUCOSE, BUN, results sectio n. CREATININE, CA) XR KUB STAT 03/20/2020 4:22 PM Enterocolitis BURNISHING MACHINE OPERATOR Procedure Note - [facility] Results Inft User - 03/21/2020 9:20 AM BURNISHING MACHINE OPERATOR EXAM: XR KUB HISTORY: 34 years-old Male p resenting with Abdominal pain, monitoring colonic distension COMPARISON: 03/19/2020, 02/23 TECHNIQUE: Frontal views of the abdomen and pelvis were obtained. FINDINGS: The visualized lung bases ar e clear. Scattered gas is seen in the small and large bowel. No evidence of dilated bowel. Hepatomegaly measuring 22 cm craniocaudal dimension. No a bnormal calcifications or radiopaque stones are identified. Metallic coils p roject over the left lower quadrant. No acute bony abnormalities are noted . Soft tissues are unremarkable. IMPRESSION No acute intra-abdominal abn ormality. Mild hepatomegaly. Preliminary Report Dictated by Resident: Jazmin Garcia DIFF CONSULT Routine 03/20/2020 3:47 AM Results for this INTERPRETATION BURNISHING MACHINE OPERATOR procedure are in the results section. CBC WITH DIFF Routine 03/20/2020 3:47 AM Results for this BURNISHING MACHINE OPERATOR procedure are i n the results section. DIFF CONSULT Add-on 03/20/2020 3:47 AM Results for this INTERPRETATION BURNISHING MACHINE OPERATOR procedure are in the results section. BASIC METABOLIC PANEL Routine 03/20/2020 3:47 AM Results for this (NA, K, CL, CO2, BURNISHING MACHINE OPERATOR procedure a re in GLUCOSE, BUN, the results CREATININE, CA) section. XR KUB Routine 03/19/2020 9:07 AM Epigastric p ain BURNISHING MACHINE OPERATOR Gastroenteritis Procedure Note - [facility] Results Inft User - 03/22/2020 8:10 AM BURNISHING MACHINE OPERATOR EXAM: XR KUB HISTORY: 34 years-old Male p resenting with Serial abd exam due to pain and diarrhea COMPARISON: 03/18/2020 TECHNIQUE: Frontal views of the abdomen and pelvis were obtained. FINDINGS: Scattered gas is seen in the small and large bowel. No evidence of dilated bowel. No abnormal calcifica tions or radiopaque stones are identified. Surgical coils project over the left hemipelvis. IMPRESSION No acute intra-abdominal abn ormality. Preliminary Report Dictated by Resident: Jazmin Garcia CBC WITH DIFF Routine 03/19/2020 3:53 AM Results for this BURNISHING MACHINE OPERATOR procedure are i n the results section. BASIC METABOLIC PANEL Routine 03/19/2020 3:53 AM Results for this (NA, K, CL, CO2, BURNISHING MACHINE OPERATOR procedure a re in GLUCOSE, BUN, the results CREATININE, CA) section. CLOSTRIDIUM DIFFICILE STAT 03/18/2020 5:48 PM Results for this TOXIN BURNISHING MACHINE OPERATOR procedure are i n the results section. BASIC METABOLIC PANEL Routine 03/18/2020 6:23 AM Results for this (NA, K, CL, CO2, BURNISHING MACHINE OPERATOR procedure a re in GLUCOSE, BUN, the results CREATININE, CA) section. CBC WITH DIFF Routine 03/18/2020 6:20 AM Results for this BURNISHING MACHINE OPERATOR procedure are i n the results section. XR KUB Routine 03/18/2020 4:25 AM Epigastric pain BURNISHING MACHINE OPERATOR Procedure Note - [facility] Results Inft User - 03/22/2020 8:09 AM BURNISHING MACHINE OPERATOR EXAM: XR KUB HISTORY: 34 years-old Male p resenting with Evaluation for colon distention, tomorrow morning COMPARISON: No prior studies available for comparison. TECHNIQUE: Frontal views of the abdomen and pelvis were obtained. FINDINGS: Scattered gas is seen in the small and large bowel. No evidence of dilated bowel. No abnormal calcifica tions or radiopaque stones are identified. Surgical coils project over the left hemipelvis. IMPRESSION No acute intra-abdominal abn ormality. Preliminary Report Dictated by Resident: Jazmin Garcia US ABDOMEN LIMITED Routine 03/17/2020 8:26 Epigastric pain Re sults for this PM BURNISHING MACHINE OPERATOR procedure are i n the results section. FECAL PATHOGENS BY PCR Routine 03/17/2020 2:57 R esults for this PM BURNISHING MACHINE OPERATOR procedure are i n the results section. CALPROTECTIN, FECAL Routine 03/17/2020 2:57 Resu lts for this PM BURNISHING MACHINE OPERATOR procedure are i n the results section. HELICOBACTER PYLORI Routine 03/17/2020 2:57 Resu lts for this ANTIGEN, FECAL BY EIA PM BURNISHING MACHINE OPERATOR proced ure are in the results section. EXTRA TUBE RED Routine 03/17/2020 12:02 PM BURNISHING MACHINE OPERATOR EXTRA TUBE SST Routine 03/17/2020 12:02 PM BURNISHING MACHINE OPERATOR EXTRA TUBE LT. BLUE Routine 03/17/2020 12:02 PM BURNISHING MACHINE OPERATOR C-REACTIVE PROTEIN Routine 03/17/2020 12:02 Resul ts for this PM BURNISHING MACHINE OPERATOR procedure are i n the results section. SEDIMENTATION RATE Routine 03/17/2020 12:01 Resul ts for this PM BURNISHING MACHINE OPERATOR procedure are i n the results section. BLOOD CULTURE SCREEN Routine 03/17/2020 12:01 Res ults for this PM BURNISHING MACHINE OPERATOR procedure are i n the results section. BLOOD CULTURE SCREEN Routine 03/17/2020 12:00 Res ults for this PM BURNISHING MACHINE OPERATOR procedure are i n the results section. XR CHEST 1 VW Routine 03/17/2020 11:10 Epigastric pain Results for this AM BURNISHING MACHINE OPERATOR procedure are i n the results section. LACTIC ACID WHOLE STAT 03/17/2020 9:32 Result s for this BLOOD AM BURNISHING MACHINE OPERATOR procedure are i n the results section. VITAMIN D, 25-OH STAT 03/17/2020 4:35 Results for this AM BURNISHING MACHINE OPERATOR procedure are i n the results section. LAB ONLY COVID Routine 03/17/2020 3:27 Epigastric pain Result s for this INTERPRETATION AM BURNISHING MACHINE OPERATOR procedure are in the results section. COVID-19 (ID NOW RAPID STAT 03/17/2020 3:27 Epigastric sara n Results for this TESTING) AM BURNISHING MACHINE OPERATOR procedure are i n the results section. CT ABDOMEN PELVIS W STAT 03/17/2020 2:37 Epigastric pain R esults for this CONTRAST AM BURNISHING MACHINE OPERATOR procedure are i n the results section. HIV 1/2 AG-AB WITH STAT Add-On 03/17/2020 1:52 Resul ts for this REFLEX AM BURNISHING MACHINE OPERATOR procedure are i n the results section. CBC WITH DIFF STAT 03/17/2020 1:52 Epigastric pain Results for this AM BURNISHING MACHINE OPERATOR procedure are i n the results section. BASIC METABOLIC PANEL STAT 03/17/2020 1:52 Epigastric pain Results for this (NA, K, CL, CO2, AM BURNISHING MACHINE OPERATOR procedure a re in GLUCOSE, BUN, the results CREATININE, CA) section. HEPATIC FUNCTION PANEL STAT 03/17/2020 1:52 Epigastric sara n Results for this (57720) AM BURNISHING MACHINE OPERATOR procedure are i n (ALB,T.PRO,BILI the results T,BU/BC,ALT,AST,ALK section. PHOS) MAGNESIUM Add-on 03/17/2020 1:52 Results for this AM BURNISHING MACHINE OPERATOR procedure are i n the results section. LIPASE STAT 03/17/2020 1:52 Epigastric pain Results for this AM BURNISHING MACHINE OPERATOR procedure are i n the results section. PHOSPHORUS Add-on 03/17/2020 1:52 Results for this AM BURNISHING MACHINE OPERATOR procedure are i n the results section. NOTICE OF PRIVACY Routine 03/17/2020 1:39 PRACTICES AM BURNISHING MACHINE OPERATOR CONSENT/REFUSAL FOR Routine 03/17/2020 1:39 DIAGNOSIS AND AM BURNISHING MACHINE OPERATOR TREATMENT AGREEMENTS Routine 03/17/2020 12:01 AUTHORIZATIONS AND AM BURNISHING MACHINE OPERATOR IRREVOCABLE ASSIGNMENTS (FORM 2000) documented in this encounter Results Basic Metabolic Panel (NA, K, CL, CO2, GLUCOSE, BUN, CREATININE, CA) (03/22/2020 5:07 AM BURNISHING MACHINE OPERATOR) Pathologist [facility] nature NA 140 135 - 145 [facility] mmol/L SERVICES K 4.0 3.5 - 5.0 [facility] mmol/L SERVICES CL 102 98 - 108 mmol/L [facility] SERVICES CO2 TOTAL 32 (H) 23 - 31 mmol/L [facility] AGAP 6 2 - 16 [facility] BUN 10 7 - 23 mg/dL [facility] GLUCOSE 88 70 - 110 mg/dL [facility] CREATININE 0.92 0.60 - 1.25 [facility] mg/dL SERVICES CALCIUM 8.6 8.6 - 10.6 [facility] mg/dL SERVICES eGFR Calculation 95.3 mL/min/1.73m2 [facility] (Non-) SERVICES eGFR Calculation 115.6 mL/min/1.73m2 [facility] () SERVICES Specimen Blood - ARM, LEFT Narrative Performed At Association of Glomerular Filtration Rate (GFR) and St aging [facility] SERVICES of Kidney Disease* [...] . Performing Organization Address City/State/Zipcode Phone Number [facility] CLIA: [id number] [place] [address] [place] [address] CBC with Differential (03/22/2020 5:07 AM BURNISHING MACHINE OPERATOR) Pathologist Sig nature WBC 13.16 (H) 4.20 - 10.70 [facility] 10*3/L SERVICES RBC 4.50 4.26 - 5.52 [facility] 10*6/L SERVICES HGB 13.6 12.2 - 16.4 [facility] g/dL SERVICES HCT 41.3 38.4 - 49.3 % [facility] MCV 91.8 81.7 - 95.6 fL [facility] MCH 30.2 26.1 - 32.7 pg [facility] MCHC 32.9 31.2 - 35.0 [facility] g/dL SERVICES RDW-SD 42.3 38.5 - 51.6 fL [facility] RDW-CV 12.6 12.1 - 15.4 % [facility] PLT 566 (H) 150 - 328 [facility] 10*3/L SERVICES MPV 9.0 (L) 9.8 - 13.0 fL [facility] NRBC/100 WBC 0.0 0.0 - 10.0 /100 [facility] WBCs SERVICES NRBC x10^3 <0.01 10*3/L [facility] GRAN MAT (NEUT) % 62.8 % [facility] IMM GRAN % 2.90 % [facility] LYMPH % 23.2 % [facility] MONO % 7.9 % [facility] EOS % 2.4 % [facility] BASO % 0.8 % [facility] GRAN MAT x10^3(ANC) 8.27 (H) 1.99 - 6.95 [facility] 10*3/uL SERVICES IMM GRAN x10^3 0.38 (H) 0.00 - 0.06 [facility] 10*3/uL SERVICES LYMPH x10^3 3.05 1.09 - 3.23 [facility] 10*3/uL SERVICES MONO x10^3 1.04 (H) 0.36 - 1.02 [facility] 10*3/uL SERVICES EOS x10^3 0.31 0.06 - 0.53 [facility] 10*3/uL SERVICES BASO x10^3 0.11 (H) 0.01 - 0.09 [facility] 10*3/uL SERVICES Specimen Blood - ARM, LEFT Performing Organization Address City/State/Zipcode Phone Number [facility] CLIA: [id number] [place] [address] [place] [address] Basic Metabolic Panel (NA, K, CL, CO2, GLUCOSE, BUN, CREATININE, CA) (03/21/2020 3:37 AM BURNISHING MACHINE OPERATOR) Pathologist [facility] nature NA 140 135 - 145 mmol/L [facility] SERVICES K 4.3 3.5 - 5.0 mmol/L [facility] SERVICES CL 104 98 - 108 mmol/L [facility] CO2 TOTAL 31 23 - 31 mmol/L [facility] SERVICES AGAP 5 2 - 16 [facility] SERVICES BUN 9 7 - 23 mg/dL [facility] SERVICES GLUCOSE 86 70 - 110 mg/dL [facility] SERVICES CREATININE 0.88 0.60 - 1.25 [facility] mg/dL SERVICES CALCIUM 8.6 8.6 - 10.6 mg/dL [facility] SERVICES eGFR Calculation 100.4 mL/min/1.73m2 [facility] (Non-) SERVICES eGFR Calculation 121.6 mL/min/1.73m2 [facility] () SERVICES Specimen Blood - ARM, RIGHT Narrative Performed At [employer] of Glomerular Filtration Rate (GFR) and St aging [facility] SERVICES of Kidney Disease* [...] . Performing Organization Address City/State/Zipcode Phone Number [facility] CLIA: [id number] [place] [address] [place] [address] CBC with Differential (03/21/2020 3:37 AM BURNISHING MACHINE OPERATOR) WBC 21.73 (H) 4.20 - 10.70 [facility] 10*3/L SERVICES RBC 4.40 4.26 - 5.52 [facility] 10*6/L SERVICES HGB 13.3 12.2 - 16.4 [facility] g/dL SERVICES HCT 40.7 38.4 - 49.3 % [facility] MCV 92.5 81.7 - 95.6 fL [facility] MCH 30.2 26.1 - 32.7 pg [facility] MCHC 32.7 31.2 - 35.0 [facility] g/dL SERVICES RDW-SD 43.6 38.5 - 51.6 fL [facility] RDW-CV 12.7 12.1 - 15.4 % [facility] PLT 480 (H) 150 - 328 [facility] 10*3/L SERVICES MPV 9.1 (L) 9.8 - 13.0 fL [facility] NRBC/100 WBC 0.0 0.0 - 10.0 [facility] /100 WBCs SERVICES NRBC x10^3 <0.01 10*3/L [facility] GRAN MAT (NEUT) % 73.2 % [facility] IMM GRAN % 2.30 % [facility] LYMPH % 16.8 % [facility] MONO % 6.0 % [facility] EOS % 1.3 % [facility] BASO % 0.4 % [facility] GRAN MAT 15.91 (H) 1.99 - 6.95 [facility] x10^3(ANC) 10*3/uL SERVICES IMM GRAN x10^3 0.49 (H) 0.00 - 0.06 [facility] 10*3/uL SERVICES LYMPH x10^3 3.64 (H) 1.09 - 3.23 [facility] 10*3/uL SERVICES MONO x10^3 1.31 (H) 0.36 - 1.02 [facility] 10*3/uL SERVICES EOS x10^3 0.29 0.06 - 0.53 [facility] 10*3/uL SERVICES BASO x10^3 0.09 0.01 - 0.09 [facility] 10*3/uL SERVICES BANDS Increased (A) [facility] REACT LYMPHS Rare [facility] Specimen Blood - ARM, RIGHT Performing Organization Address City/State/Zipcode Phone Number [facility] CLIA: [id number] [place] [address] [place] [address] DIFF CONSULT INTERPRETATION (03/20/2020 3:47 AM BURNISHING MACHINE OPERATOR) Specimen Blood - ARM, RIGHT Narrative Performed At LEUKOCYTOSIS WITH ABSOLUTE TOXIC NEUTROPHILIA INCLUDIN G [facility] OCCASIONAL VACUOLATED NEUTROPHILS, TOXIC LEFT-SHIFT, HYPO-SEGMENTED NEUTROPHILS, REACTIVE LYMPHOCYTES AND ABSOLUTE REACTIVE MONOCYTOSIS, SUGGESTIVE OF SYSTEMIC INFECTION/INFLAMMATION. EXCLUDE SEPSIS. NORMOCYTIC NORMOCHROMIC ERYTHROCYTES WITH NARDA CELLS, OVALOCYTES AND RARE SPHEROCYTES. THROMBOCYTOSIS, LIKELY TO BE REACTIVE. Performing Organization Address City/[facility]/Zipcode Phone Number [facility] CLIA: [id number] [place] [address] [place] [address] Basic Metabolic Panel (NA, K, CL, CO2, GLUCOSE, BUN, CREATININE, CA) (03/20/2020 3:47 AM BURNISHING MACHINE OPERATOR) Pathologist Sig nature NA 139 135 - 145 [facility] mmol/L SERVICES K 4.1 3.5 - 5.0 [facility] mmol/L SERVICES CL 106 98 - 108 mmol/L [facility] SERVICES CO2 TOTAL 27 23 - 31 mmol/L [facility] SERVICES AGAP 6 2 - 16 [facility] BUN 10 7 - 23 mg/dL [facility] GLUCOSE 132 (H) 70 - 110 mg/dL [facility] CREATININE 0.84 0.60 - 1.25 [facility] mg/dL SERVICES CALCIUM 7.9 (L) 8.6 - 10.6 [facility] mg/dL SERVICES eGFR Calculation 105.9 mL/min/1.73m2 [facility] (Non- SERVICES [place]ian) eGFR Calculation 128.3 mL/min/1.73m2 [facility] () SERVICES Specimen Blood - ARM, RIGHT Narrative Performed At Association of Glomerular Filtration Rate (GFR) and St aging [facility] SERVICES of Kidney Disease* [...] . Performing Organization Address City/State/Zipcode Phone Number [facility] CLIA: [id number] [place] [address] [place] [address] CBC with Differential (03/20/2020 3:47 AM BURNISHING MACHINE OPERATOR) WBC 31.30 (H) 4.20 - 10.70 [facility] 10*3/L SERVICES RBC 4.10 (L) 4.26 - 5.52 [facility] 10*6/L SERVICES HGB 12.5 12.2 - 16.4 [facility] g/dL SERVICES HCT 37.8 (L) 38.4 - 49.3 % [facility] SERVICES MCV 92.2 81.7 - 95.6 fL [facility] SERVICES MCH 30.5 26.1 - 32.7 pg [facility] SERVICES MCHC 33.1 31.2 - 35.0 [facility] g/dL SERVICES RDW-SD 42.8 38.5 - 51.6 fL [facility] SERVICES RDW-CV 12.7 12.1 - 15.4 % [facility] SERVICES PLT 407 (H) 150 - 328 [facility] 10*3/L SERVICES MPV 9.2 (L) 9.8 - 13.0 fL [facility] SERVICES NRBC/100 WBC 0.0 0.0 - 10.0 [facility] /100 WBCs SERVICES NRBC x10^3 <0.01 10*3/L [facility] GRAN MAT (NEUT) % 85.9 % [facility] IMM GRAN % 1.40 % [facility] LYMPH % 7.7 % [facility] MONO % 3.7 % [facility] EOS % 0.9 % [facility] BASO % 0.4 % [facility] GRAN MAT 26.85 (H) 1.99 - 6.95 [facility] x10^3(ANC) 10*3/uL SERVICES IMM GRAN x10^3 0.44 (H) 0.00 - 0.06 [facility] 10*3/uL SERVICES LYMPH x10^3 2.42 1.09 - 3.23 [facility] 10*3/uL SERVICES MONO x10^3 1.16 (H) 0.36 - 1.02 [facility] 10*3/uL SERVICES EOS x10^3 0.29 0.06 - 0.53 [facility] 10*3/uL SERVICES BASO x10^3 0.14 (H) 0.01 - 0.09 [facility] 10*3/uL SERVICES BANDS Increased (A) [facility] SERVICES Specimen Blood - ARM, RIGHT Performing Organization Address City/State/Zipcode Phone Number [facility] CLIA: [id number] [place] [address] [place] [address] CBC with Differential (03/19/2020 3:53 AM BURNISHING MACHINE OPERATOR) WBC 28.36 (H) 4.20 - 10.70 [facility] 10*3/L SERVICES RBC 4.16 (L) 4.26 - 5.52 [facility] 10*6/L SERVICES HGB 12.7 12.2 - 16.4 [facility] g/dL SERVICES HCT 38.8 38.4 - 49.3 % [facility] SERVICES MCV 93.3 81.7 - 95.6 fL [facility] SERVICES MCH 30.5 26.1 - 32.7 pg [facility] SERVICES MCHC 32.7 31.2 - 35.0 [facility] g/dL SERVICES RDW-SD 43.7 38.5 - 51.6 fL [facility] SERVICES RDW-CV 12.8 12.1 - 15.4 % [facility] SERVICES PLT 396 (H) 150 - 328 [facility] 10*3/L SERVICES MPV 9.3 (L) 9.8 - 13.0 fL [facility] SERVICES NRBC/100 WBC 0.0 0.0 - 10.0 [facility] /100 WBCs SERVICES NRBC x10^3 <0.01 10*3/L [facility] SERVICES GRAN MAT (NEUT) % 82.5 % [facility] IMM GRAN % 2.60 % [facility] LYMPH % 8.1 % [facility] MONO % 5.2 % [facility] EOS % 1.1 % [facility] BASO % 0.5 % [facility] SERVICES GRAN MAT 23.38 (H) 1.99 - 6.95 [facility] x10^3(ANC) 10*3/uL SERVICES IMM GRAN x10^3 0.74 (H) 0.00 - 0.06 [facility] 10*3/uL SERVICES LYMPH x10^3 2.31 1.09 - 3.23 [facility] 10*3/uL SERVICES MONO x10^3 1.47 (H) 0.36 - 1.02 [facility] 10*3/uL SERVICES EOS x10^3 0.31 0.06 - 0.53 [facility] 10*3/uL SERVICES BASO x10^3 0.15 (H) 0.01 - 0.09 [facility] 10*3/uL SERVICES BANDS Increased (A) [facility] TOXIC CHANGES Present (A) [facility] SERVICES Specimen Blood - ARM, RIGHT Performing Organization Address City/State/Zipcode Phone Number [facility] CLIA: [id number] [place] [address] [place] [address] Basic Metabolic Panel (NA, K, CL, CO2, GLUCOSE, BUN, CREATININE, CA) (03/19/2020 3:53 AM BURNISHING MACHINE OPERATOR) Pathologist Sig nature NA 139 135 - 145 [facility] mmol/L SERVICES K 4.1 3.5 - 5.0 [facility] mmol/L SERVICES CL 107 98 - 108 mmol/L [facility] SERVICES CO2 TOTAL 29 23 - 31 mmol/L [facility] AGAP 3 2 - 16 [facility] BUN 13 7 - 23 mg/dL [facility] SERVICES GLUCOSE 108 70 - 110 mg/dL [facility] SERVICES CREATININE 0.88 0.60 - 1.25 [facility] mg/dL SERVICES CALCIUM 8.1 (L) 8.6 - 10.6 [facility] mg/dL SERVICES eGFR Calculation 100.4 mL/min/1.73m2 [facility] (Non- SERVICES [place]ian) eGFR Calculation 121.6 mL/min/1.73m2 [facility] () SERVICES Specimen Blood - ARM, RIGHT Narrative Performed At Association of Glomerular Filtration Rate (GFR) and St aging [facility] SERVICES of Kidney Disease* [...] in imaging tests) . Performing Organization Address [facility] Phone Number [facility] CLIA: [id number] [place] [address] [place] [address] CLOSTRIDIUM DIFFICILE TOXIN (03/18/2020 5:48 PM BURNISHING MACHINE OPERATOR) Pathologist Sig nature Clostridioides Negative Negative [facility] (Clostridium) difficile SERVICES Specimen Stool - ANAL Performing Organization Address [facility] Phone Number [facility] CLIA: [id number] [place] [address] [place] [address] Basic Metabolic Panel (NA, K, CL, CO2, GLUCOSE, BUN, CREATININE, CA) (03/18/2020 6:23 AM BURNISHING MACHINE OPERATOR) Pathologist [facility] nature NA 139 135 - 145 mmol/L [facility] SERVICES K 4.4 3.5 - 5.0 mmol/L [facility] SERVICES CL 106 98 - 108 mmol/L [facility] SERVICES CO2 TOTAL 28 23 - 31 mmol/L [facility] SERVICES AGAP 5 2 - 16 [facility] SERVICES BUN 5 (L) 7 - 23 mg/dL [facility] SERVICES GLUCOSE 102 70 - 110 mg/dL [facility] SERVICES CREATININE 0.78 0.60 - 1.25 [facility] mg/dL SERVICES CALCIUM 8.6 8.6 - 10.6 mg/dL [facility] SERVICES eGFR Calculation 115.3 mL/min/1.73m2 [facility] (Non-) SERVICES eGFR Calculation 139.8 mL/min/1.73m2 [facility] () SERVICES Specimen Blood - HAND, LEFT Narrative Performed At Association of Glomerular Filtration Rate (GFR) and St aging [facility] SERVICES of Kidney Disease* [...] . Performing Organization Address City/State/Zipcode Phone Number [facility] CLIA: [id number] [place], [place] [address] [address] [place] [address] CBC with Differential (03/18/2020 6:20 AM BURNISHING MACHINE OPERATOR) WBC 18.71 (H) 4.20 - 10.70 [facility] 10*3/L SERVICES RBC 4.38 4.26 - 5.52 [facility] 10*6/L SERVICES HGB 13.5 12.2 - 16.4 [facility] g/dL SERVICES HCT 39.7 38.4 - 49.3 % [facility] SERVICES MCV 90.6 81.7 - 95.6 fL [facility] SERVICES MCH 30.8 26.1 - 32.7 pg [facility] SERVICES MCHC 34.0 31.2 - 35.0 [facility] g/dL SERVICES RDW-SD 42.1 38.5 - 51.6 fL [facility] SERVICES RDW-CV 12.6 12.1 - 15.4 % [facility] SERVICES PLT 411 (H) 150 - 328 [facility] 10*3/L SERVICES MPV 9.3 (L) 9.8 - 13.0 fL [facility] SERVICES NRBC/100 WBC 0.0 0.0 - 10.0 [facility] /100 WBCs SERVICES NRBC x10^3 <0.01 10*3/L [facility] SERVICES GRAN MAT (NEUT) % 76.8 % [facility] SERVICES IMM GRAN % 3.70 % [facility] SERVICES LYMPH % 12.9 % [facility] SERVICES MONO % 5.5 % [facility] SERVICES EOS % 0.4 % [facility] SERVICES BASO % 0.7 % [facility] SERVICES GRAN MAT 14.36 (H) 1.99 - 6.95 [facility] x10^3(ANC) 10*3/uL SERVICES IMM GRAN x10^3 0.69 (H) 0.00 - 0.06 [facility] 10*3/uL SERVICES LYMPH x10^3 2.42 1.09 - 3.23 [facility] 10*3/uL SERVICES MONO x10^3 1.02 0.36 - 1.02 [facility] 10*3/uL SERVICES EOS x10^3 0.08 0.06 - 0.53 [facility] 10*3/uL SERVICES BASO x10^3 0.14 (H) 0.01 - 0.09 [facility] 10*3/uL SERVICES BANDS Increased (A) [facility] TOXIC CHANGES Present (A) [facility] SERVICES Specimen Blood - HAND, LEFT Performing Organization Address City/State/Zipcode Phone Number [facility] CLIA: [id number] [place] [address] [place], [place] [address]vd US ABDOMEN LIMITED (03/17/2020 8:26 PM BURNISHING MACHINE OPERATOR) Specimen Impressions Performed At PACS/VR/DOSE 1. Hepatomegaly with mild hepatic stea tosis. 2. No cholelithiasis or acute cholecys titis. Preliminary Report Dictated by Resident: Redd Greene I, Bryon Olivas MD., have reviewed this study and agree with the above report. Narrative Performed At This result has an attachment that is no t available. EXAM: US ABDOMEN LIMITED PACS/VR/DOSE HISTORY: 34 years-old Male with Evaluation of Liver an d Gallbladder and CBD . TECHNIQUE: Limited abdominal ultrasound was performed focused on the liver, biliary system, pancreas and spleen. Main portal vein was evaluated with color Doppler imaging. Clinical Specialty Rep images were obta ined for the record. COMPARISON: None FINDINGS: LIVER: Length: 17.7 cm in craniocaudal dimension. Parenchyma: Increased hepatic parenchymal echogenicity with normal echotexture. No focal lesion is detected. Portal vein: Hepatopetal flow present in the main port al vein. MPV diameter: 1.3 cm in AP diameter at the yasmni hepat is GALLBLADDER: No cholelithiasis. Normal gallbladder wall thickness, 3.0 mm. Montano's sign could not be accurately asssessed due to premedication for pain. BILE DUCTS: No intra- or extrahepatic biliary dilatation. Common Duct diameter: 2.0 mm. PANCREAS: Limited visualization due to shadowing from bowel gas. Imaged head and body of pancreas are unremarkable. SPLEEN: The spleen is normal in size. It measures 10.4 cm. No focal lesions in the spleen. AORTA: Abdominal aorta is normal in caliber where visualized. Diameter of the proximal abdominal aorta is 1.7 cm. IVC: IVC is normal in appearance where visualized. OTHER: Imaged portions of the right kidney are unremar kable. Procedure Note [facility], Radiant Results Inft User - 2019 10:00 PM BURNISHING MACHINE OPERATOR EXAM: US ABDOMEN LIMITED HISTORY: 34 years-old Male with Evaluati on of Liver and Gallbladder and CBD . TECHNIQUE: Limited abdominal ultrasound was performed focused on the liver, biliary system, pancreas and spleen. Sujey n portal vein was evaluated with color Doppler imaging. Clinical Specialty Rep im ages were obtained for the record. COMPARISON: None FINDINGS: LIVER: Length: 17.7 cm in craniocaudal dimensio n. Parenchyma: Increased hepatic parenchyma l echogenicity with normal echotexture. No focal lesion is detected . Portal vein: Hepatopetal flow present in the main portal vein. MPV diameter: 1.3 cm in AP diameter at t he yasmin hepatis GALLBLADDER: No cholelithiasis. Normal gallbladder wall thickness, 3.0 m m. Montano's sign could not be accurately as ssessed due to premedication for pain. BILE DUCTS: No intra- or extrahepatic biliary dilata tion. Common Duct diameter: 2.0 mm. PANCREAS: Limited visualization due to s hadowing from bowel gas. Imaged head and body of pancreas are unremarkab le. SPLEEN: The spleen is normal in size. It measure s 10.4 cm. No focal lesions in the spleen. AORTA: Abdominal aorta is normal in caliber whe re visualized. Diameter of the proximal abdominal aorta is 1.7 cm. IVC: IVC is normal in appearance where visual ized. OTHER: Imaged portions of the right kidn ey are unremarkable. IMPRESSION 1. Hepatomegaly with mild hepatic steat osis. 2. No cholelithiasis or acute cholecyst itis. Preliminary Report Dictated by Resident: Redd Greene I, Bryon Olivas MD., have reviewed [facility] study and agree with the above report. Performing Organization Address City/[facility]/Zipcode Phone Number PACS/VR/DOSE HELICOBACTER PYLORI ANTIGEN, FECAL BY EIA (03/17/2020 2:57 PM BURNISHING MACHINE OPERATOR) Pathologist Sig nature H. PYLO Ag Negative Negative [facility] Comment: Performed By: [facility] [address] [place] [address] [employer] Operator: Berenice Burris MD Specimen Stool - ANAL Performing Organization Address [facility]/Zipcode Phone Number [facility] [address] [place] [address] FECAL PATHOGENS BY PCR (03/17/2020 2:57 PM BURNISHING MACHINE OPERATOR) Campylobacter (jejuni, Negative Negative, [facility] coli and upsaliensis) Indeterminate, SERVICES See comment Plesiomonas shigelloides Negative Negative, [facility] Indeterminate, SERVICES See comment Salmonella Negative Negative, [facility] Indeterminate, SERVICES See comment Yersinia enterocolitica Negative Negative, [facility] Indeterminate, SERVICES See comment Vibrio Negative Negative, [facility] Indeterminate, SERVICES See comment Vibrio cholerae Negative Negative, [facility] Indeterminate, SERVICES See comment Enteroaggregative E. coli Negative Negative, [facility] (EAEC) Indeterminate, SERVICES See comment Enteropathogenic E. coli Negative Negative, N/A, [facility] Y (EPEC) Indeterminate, SERVICES See comment Enterotoxigenic E. coli Negative Negative, [facility] (ETEC) Indeterminate, SERVICES See comment Shiga toxin-Producing E. Negative Negative, [facility] coli (STEC) Indeterminate, SERVICES See comment Shigella/Enteroinvasive Negative Negative, [facility] E. coli (EIEC) Indeterminate, SERVICES See comment Cryptosporidium Negative Negative, [facility] Indeterminate, SERVICES See comment Cyclospora cayetanensis Negative Negative, [facility] Indeterminate, SERVICES See comment Entamoeba histolytica Negative Negative, [facility] Indeterminate, SERVICES See comment Giardia lamblia Negative Negative, [facility] Indeterminate, SERVICES See comment Adenovirus F 40/41 Negative Negative, [facility] Indeterminate, SERVICES See comment Astrovirus Negative Negative, [facility] Indeterminate, SERVICES See comment Norovirus GI/GII Negative Negative, [facility] Indeterminate, SERVICES See comment Rotavirus A Negative Negative, [facility] Indeterminate, SERVICES See comment Sapovirus Negative Negative, [facility] Indeterminate, SERVICES See comment Specimen Stool - ANAL Narrative Performed At Negative: [facility] SERVICES A negative result does not rule-out infection. This assay does not test for all potential infectious agents of diarrheal disease. Positive: A positive test result does not necessarily indicate t he presence of viable organism. Performing Organization Address City/State/Zipcode Phone Number [facility] CLIA: [id number] [place] [address] [place] [address] CALPROTECTIN, FECAL (03/17/2020 2:57 PM BURNISHING MACHINE OPERATOR) Pathologist Sig nature CALPROFECAL 269 (H) <=49 ug/g [facility] Comment: REFERENCE INTERVAL: Calprotectin, Fecal by Immunoassay Less than 50 ug/g.........Normal 50-120 ug/g...............Borderline elevated, test should be re-evaluated in 4-6 weeks. 121 ug/g or greater.......Elevated Performed by [facility], [address] [place] [id number] [email or web address], Adryan Huffman MD, Lab. Director Specimen Stool - ANAL Performing Organization Address [facility] Phone Number [facility] [address] [place] [address] EXTRA TUBE LT. BLUE (03/17/2020 12:02 PM BURNISHING MACHINE OPERATOR) Specimen Blood Performing Organization Address [facility] Cent[facility]ode Phone Number [facility] CLIA: [id number] [place] [address] [phone] 301 [facility] EXTRA TUBE SST (03/17/2020 12:02 PM BURNISHING MACHINE OPERATOR) Specimen Blood Performing Organization Address City/[facility] Cent[facility]ode Phone Number [facility] CLIA: [id number] [place] [address] [phone] 301 [facility] EXTRA TUBE RED (03/17/2020 12:02 PM BURNISHING MACHINE OPERATOR) Specimen Blood Performing Organization Address [facility] Phone Number [facility] CLIA: [id number] [place] [address] [phone] 301 [facility] C-REACTIVE PROTEIN (03/17/2020 12:02 PM BURNISHING MACHINE OPERATOR) Pathologist Sig nature CRP 9.5 (H) <0.8 mg/dL [facility] SERVICES Specimen Blood - ARM, LEFT Performing Organization Address [facility] Phone Number [facility] CLIA: [id number] [place] [address] [phone] 301 [facility] BLOOD CULTURE SCREEN (03/17/2020 12:01 PM BURNISHING MACHINE OPERATOR) Blood No organisms isolated No growth [facility] Culture-Aerobic Comment: SERVICES Previous preliminary verifie d result was Culture In Progress on 03/17/2020 at 1601 BURNISHING MACHINE OPERATOR Previous preliminary verifie d result was No growth at 24 hours on 03/18/2020 at 1301 BURNISHING MACHINE OPERATOR Previous preliminary verifie d result was No growth at 48 hours on 03/19/2020 at 1301 BURNISHING MACHINE OPERATOR Previous preliminary verifie d result was No growth at 72 hours on 03/20/2020 at 1301 BURNISHING MACHINE OPERATOR Blood No organisms isolated No growth [facility] Culture-Anaerobic Comment: SERVICES Previous preliminary verifie d result was Culture In Progress on 03/17/2020 at 1601 BURNISHING MACHINE OPERATOR Previous preliminary verifie d result was No growth at 24 hours on 03/18/2020 at 1301 BURNISHING MACHINE OPERATOR Previous preliminary verifie d result was No growth at 48 hours on 03/19/2020 at 1301 BURNISHING MACHINE OPERATOR Previous preliminary verifie d result was No growth at 72 hours on 03/20/2020 at 1301 BURNISHING MACHINE OPERATOR Specimen Blood - ARM, RIGHT Performing Organization Address [facility] Phone Number [facility] CLIA: [id number] [place] [address] [phone] 301 [facility] SEDIMENTATION RATE (03/17/2020 12:01 PM BURNISHING MACHINE OPERATOR) Pathologist Sig nature ESR 55 (H) 0 - 10 mm/HR [facility] SERVICES Specimen Blood - ARM, LEFT Performing Organization Address [facility] Phone Number [facility] CLIA: [id number] [place] [address] [phone] 301 [facility] BLOOD CULTURE SCREEN (03/17/2020 12:00 PM BURNISHING MACHINE OPERATOR) Blood No organisms isolated No growth [facility] Culture-Aerobic Comment: SERVICES Previous preliminary verifie d result was Culture In Progress on 03/17/2020 at 1601 BURNISHING MACHINE OPERATOR Previous preliminary verifie d result was No growth at 24 hours on 03/18/2020 at 1301 BURNISHING MACHINE OPERATOR Previous preliminary verifie d result was No growth at 48 hours on 03/19/2020 at 1301 BURNISHING MACHINE OPERATOR Previous preliminary verifie d result was No growth at 72 hours on 03/20/2020 at 1301 BURNISHING MACHINE OPERATOR Blood No organisms isolated No growth [facility] Culture-Anaerobic Comment: SERVICES Previous preliminary verifie d result was Culture In Progress on 03/17/2020 at 1601 BURNISHING MACHINE OPERATOR Previous preliminary verifie d result was No growth at 24 hours on 03/18/2020 at 1301 BURNISHING MACHINE OPERATOR Previous preliminary verifie d result was No growth at 48 hours on 03/19/2020 at 1301 BURNISHING MACHINE OPERATOR Previous preliminary verifie d result was No growth at 72 hours on 03/20/2020 at 1301 BURNISHING MACHINE OPERATOR Specimen Blood - ARM, LEFT Performing Organization Address [facility] Centercode Phone Number [facility] CLIA: [id number] [place] [address] [phone] 301 [facility] XR CHEST 1 VW (03/17/2020 11:10 AM BURNISHING MACHINE OPERATOR) Specimen Impressions Performed At PACS/VR/DOSE No acute cardiopulmonary abnormality. Preliminary Report Dictated by Resident: Bryon Mai MD., have reviewed this study and agree with the above report. Narrative Performed At This result has an attachment that is no t available. XR CHEST 1 VW PACS/VR/DOSE HISTORY: Leukocytosis COMPARISON: None TECHNIQUE: AP radiograph of the chest was performed. FINDINGS: Subcentimeter right lower lobe calcified granuloma. Pr ominence of the pulmonary hilar vasculature. No focal consolidation, p neumothorax or pleural effusion is seen. The cardiomediastinal silhouette is normal. No acute osseous abnormality. Procedure Note [facility], Radiant Results Inft User - 2019 10:46 PM BURNISHING MACHINE OPERATOR XR CHEST 1 VW HISTORY: Leukocytosis COMPARISON: None TECHNIQUE: AP radiograph of the chest wa s performed. FINDINGS: Subcentimeter right lower lobe calcified granuloma. Prominence of the pulmonary hilar vasculature. No focal co nsolidation, pneumothorax or pleural effusion is seen. The cardiomediastinal silhouette is norm al. No acute osseous abnormality. IMPRESSION No acute cardiopulmonary abnormality. Preliminary Report Dictated by Resident: Bryon Mai MD., have reviewed th is study and agree with the above report. Performing Organization Address City/[facility] Cent[facility]ode Phone Number PACS/VR/DOSE Lactic Acid Whole Blood (03/17/2020 9:32 AM BURNISHING MACHINE OPERATOR) Pathologist Sig nature LACTIC ACID 1.15 mmol/L [facility] Specimen Blood - ARM, RIGHT Performing Organization Address [facility] Phone Number [facility] CLIA: [id number] [place] [address] [place] [address] VITAMIN D, 25-OH (03/17/2020 4:35 AM BURNISHING MACHINE OPERATOR) Pathologist Sig nature VIT D 25OH 15 (L) 25 - 80 ng/mL [facility] Specimen Blood - VENOUS Narrative Performed At Deficiency: <20 ng/mL [facility] Insufficiency: 20-24 ng/mL Optimal: 25-80 ng/mL Performing Organization Address [facility] Phone Number [facility] CLIA: [id number] [place] [address] [phone] 301 [facility] LAB ONLY COVID INTERPRETATION (03/17/2020 3:27 AM BURNISHING MACHINE OPERATOR) [facility] COVID DMT Interpretation/Recommendations: [facility] LABO [facility]AT[facility] Interpretation SERVICES Molecular NAAT Tests for Active Infection with the JUAN LUIS S-CoV-2 Virus: This patient has a history o f testing negative on multiple occasions for the SARS-CoV-2 virus that causes COVID-19 illness, with no prior history of a positive result. The current test results are also negative. This most likely i ndicates that the patient does not have an active infection with the SARS-CoV-2 virus, especially if all of these tests coincide with the patient's current presentation. Tolbert frederic, infection is not comple tely ruled out as the false negative rate for molecular NAAT testing using a nasopharyngeal sample can be up to 30%, mostly dependent on the timing of sample collection in re lation to illness onset and any deficiencies in sampling techniques. If the patient continues to have persistent or worsening symptoms concerning for COVID- 19 illness, a repeat NAAT test (PCR, Rapid ID Now, etc.) should be perform ed, at which time the SARS-CoV-2 virus - [...] COVID-19 testing the patient has had at [facility], including molecular NAAT testing (more commonly known as PCR testing and Rapid ID Now testing) and antibody testing. It does not take i nto account any testing that a patient has had outside of the [facility] medical record. COVID Results SARS-CoV-2 Rapid ID NOW (no units) [facility] LABORATORY Date Value SERVICES 03/17/2020 Not Detected 03/11/2020 Not Detected Specimen Swab - NASOPHARYNGEAL SWAB Performing Organization Address City/[facility]/Zipcode Phone Number [facility] CLIA: [id number] [place] [address] [place] [address] COVID-19 (ID NOW RAPID TESTING) (03/17/2020 3:27 AM BURNISHING MACHINE OPERATOR) SARS-CoV-2 Rapid ID Not Detected Not Detected [facility] Specimen Swab - NASOPHARYNGEAL SWAB Narrative Performed At ID NOW COVID-19 Assay is an isothermal nucleic [facility] acid amplification test intended for the qualitative detection of nucleic acid from SARS-CoV-2 viral RNA in nasopharyngeal (TOOL AND DIE DESIGNER) specimens. It is used under Emergency Use [...] testing if clinically indicated. Performing Organization Address [facility] Phone Number [facility] CLIA: [id number] [place] [address] [place] [address] ABDOMEN PELVIS W CONTRAST (03/17/2020 2:37 AM BURNISHING MACHINE OPERATOR) Specimen Impressions Performed At PACS/VR/DOSE Fluid-filled loops of duodenum, jejunum and colon, wit h mucosal enhancement and wall and fold thickening, suggestive of enterocolitis. There is no bowel obstruction. RL: [id number] AFC: [id number] Narrative Performed At This result has an attachment that is no t available. Ordering physician: ADRYAN BETANCUR PACS/VR/DOSE Indication: Acute abdominal pain and distention COMPARISON: CT the abdomen and pelvis dated 03/13/2020 TECHNIQUE: Axial images of the abdomen and pelvis are performed following administration of intravenous contrast material. Image s were reformatted in the coronal and sagittal plane. CT scan was performed according to ALARA (as low as reasonably achievable) policy. FINDINGS: The lung bases are clear. The liver, gallbla dder, spleen, adrenal glands and pancreas are within normal limits. The kidn eys are normal in appearance bilaterally without hydronephrosis. No abdo tera aortic aneurysm or dissection is appreciated. There is no free fluid in the pelvis. There is no rosalinda l obstruction, widespread diverticulosis or acute diverticulitis. The re is thickening of the wall and folds of jejunal loops in the abdomen and pelvis, with mucosal enhancement. There are air-fluid levels throughout non dilated loops of colon; there is thickening of the wall of the descendi ng colon. The appendix is identified and within normal limits. Bon e windows through the abdomen and pelvis demonstrate no osseous destructive lesion. There are multiple metallic densities anterior to the left psoas muscle, stable compared to the prior study. Procedure Note [facility], Radiant Results Inft User - 2019 3:39 AM BURNISHING MACHINE OPERATOR Ordering physician: ADRYAN BETANCUR Indication: Acute abdominal pain and dis tention COMPARISON: CT the abdomen and pelvis da javier 03/13/2020 TECHNIQUE: Axial images of the abdomen a nd pelvis are performed following administration of intravenous contrast m aterial. Images were reformatted in the coronal and sagittal plane. CT scan was performed according to ALARA (as low as reasonably achievable) policy . FINDINGS: The lung bases are clear. The liver, gallbladder, spleen, adrenal glands and pancreas are within normal li mits. The kidneys are normal in appearance bilaterally without hydroneph rosis. No abdominal aortic aneurysm or dissection is appreciated. There is no free fluid in the pelvis. Th ere is no bowel obstruction, widespread diverticulosis or acute diver ticulitis. There is thickening of the wall and folds of jejunal loops in t he abdomen and pelvis, with mucosal enhancement. There are air-fluid levels throughout nondilated loops of colon; there is thickening of the wall o f the descending colon. The appendix is identified and within normal limits. Bone windows through the abdomen and pelvis demonstrate no osseou s destructive lesion. There are multiple metallic densities anterior to the left psoas muscle, stable compared to the prior study. IMPRESSION Fluid-filled loops of duodenum, jejunum and colon, with mucosal enhancement and wall and fold thickening, suggestive of enterocolitis. There is no bowel obstruction. RL: [id number] AFC: [id number] Performing Organization Address City/[facility]/Zipcode Phone Number PACS/VR/DOSE PHOSPHORUS (03/17/2020 1:52 AM BURNISHING MACHINE OPERATOR) Pathologist Sig nature PHOSPHORUS 4.3 2.5 - 5.0 mg/dL [facility]OR[facility] Specimen Blood - VENOUS Performing Organization Address [facility] Phone Number [facility] CLIA: [id number] [place], [place] [id number] [address] MAGNESIUM (03/17/2020 1:52 AM BURNISHING MACHINE OPERATOR) Pathologist Sig nature MAGNESIUM 1.9 1.7 - 2.4 mg/dL [facility] Specimen Blood - VENOUS Performing Organization Address [facility] Phone Number [facility] CLIA: [id number] [place] [address] [place] [address] HIV 1/2 AG-AB WITH REFLEX (03/17/2020 1:52 AM BURNISHING MACHINE OPERATOR) Pathologist Sig [facility] HIV 1/2 Ag-Ab with Negative Negative [facility] HIV Semi-quantitative 0.09 [facility] Specimen Blood - VENOUS Narrative Performed At Non-reactive for HIV-1 antigen and HIV-1/HIV-2 [facility] antibodies. No laboratory evidence of HIV infection. Repeat in 2-4 weeks if acute HIV infection is suspected. Performing Organization Address [facility] Phone Number [facility] CLIA: [id number] [place] [address] [place] [address] Drive Lipase Serum (03/17/2020 1:52 AM BURNISHING MACHINE OPERATOR) Pathologist Sig nature LIPASE 601 (H) 0 - 220 U/L [facility] Specimen Blood - VENOUS Performing Organization Address [facility] Phone Number [facility] CLIA: [id number] [place] [address] Hepatic Function Panel (ALB, T.PRO, BILI T, BU/BC, ALT, AST, ALK PHOS) (03/17/2020 1:52 AM BURNISHING MACHINE OPERATOR) [facility] TOTAL BILI 0.4 0.1 - 1.1 mg/dL [facility] BILI UNCON 0.2 0.1 - 1.1 mg/dL [facility] BILI CONJ 0.0 0.0 - 0.3 mg/dL [facility] T PROTEIN 6.5 6.3 - 8.2 g/dL [facility] ALBUMIN 3.5 3.5 - 5.0 g/dL [facility] ALK PHOS 68 34 - 122 U/L [facility] ALTv 11 5 - 50 U/L [facility] AST(SGOT) 15 13 - 40 U/L [facility] Specimen Blood - VENOUS Performing Organization Address City/State/Zipcode Phone Number [facility] CLIA: [id number] [place], [place] [id number] LABORATORY [address] [place] [address] Basic Metabolic Panel (NA, K, CL, CO2, GLUCOSE, BUN, CREATININE, CA) (03/17/2020 1:52 AM BURNISHING MACHINE OPERATOR) [facility] NA 138 135 - 145 [facility] mmol/L [facility] K 3.9 3.5 - 5.0 [facility] mmol/L [facility] CL 103 98 - 108 mmol/L [facility] CO2 TOTAL 27 23 - 31 mmol/L [facility] AGAP 8 2 - 16 [facility] BUN 10 7 - 23 mg/dL [facility] GLUCOSE 121 (H) 70 - 110 mg/dL [facility] CREATININE 0.78 0.60 - 1.25 [facility] mg/dL [facility] CALCIUM 7.5 (L) 8.6 - 10.6 [facility] mg/dL [facility] LAB[facility]ORY eGFR Calculation 115.3 mL/min/1.73m2 [facility] ([facility] LABORATORY Bel[place]ian) eGFR Calculation 139.8 mL/min/1.73m2 [facility] () [facility] Specimen Blood - VENOUS Narrative Performed At [facility] of Glomerular Filtration Rate (GFR) [facility] and Staging of Kidney Disease* [...] tests). Performing Organization Address City/State/Zipcode Phone Number [facility] CLIA: [id number] [place] [address] CBC with Differential (03/17/2020 1:52 AM BURNISHING MACHINE OPERATOR) WBC 27.70 (H) 4.20 - 10.70 [facility] 10*3/L [facility] LAB[facility] RBC 4.58 4.26 - 5.52 [facility] 10*6/L [facility] HGB 14.2 12.2 - 16.4 g/dL [facility] HCT 42.0 38.4 - 49.3 % [facility] MCV 91.7 81.7 - 95.6 fL [facility] MCH 31.0 26.1 - 32.7 pg [facility] MCHC 33.8 31.2 - 35.0 g/dL [facility] RDW-SD 42.3 38.5 - 51.6 fL [facility] RDW-CV 12.6 12.1 - 15.4 % [facility] PLT 391 (H) 150 - 328 [facility] 10*3/L [facility] MPV 9.3 (L) 9.8 - 13.0 fL [facility] NRBC/100 WBC 0.0 0.0 - 10.0 /100 [facility] WBCs [facility] LAB[facility] NRBC x10^3 <0.01 10*3/L [facility] SEG % 63 33 - 76 % [facility] BAND % 12 (H) 0 - 1 % [facility] LYMPH % 16 14 - 54 % [facility] MONO % 7 (H) 0 - 4 % [facility] EOS % 2 0 - 3 % [facility] ANC 20.77 (H) 1.99 - 6.95 [facility] 10*3/uL HOSPITAL LABORATORY TOXIC CHANGES Present (A) [facility] PLT ESTIMATE Increased (A) Normal [facility] GIANT PLATELETS Present (A) (none) [facility] Specimen Blood - VENOUS Performing Organization Address City/State/Zipcode Phone Number [facility] CLIA: [id number] [place] [address] documented in this encounter Visit Diagnoses Diagnosis Enterocolitis - Primary Other and unspecified noninfectious thierno roenteritis and colitis Epigastric pain Abdominal pain, epigastric Leukocytosis, unspecified type Acute pancreatitis, unspecified complica tion status, unspecified pancreatitis type Gastroenteritis Other and unspecified noninfectious thierno roenteritis and colitis RUQ abdominal pain Abdominal pain, right upper quadrant Diarrhea documented in this encounter Administered Medications Medication Order MAR Action Action Date Dose Rate Site azithromycin (ZITHROMAX) tablet Given 03/22/2020 9:18 AM BURNISHING MACHINE OPERATOR 50 0 mg 500 mg 500 mg, Oral, DAILY, 3 doses, First dose on 03/21/20 at 1700, Last dose on Sat03/23/20 at 0900, JOSE A, Reason for Anti-Infective: Empiric Therapy for Suspected Infection, Empiric Therapy Site: Abdominal, Duration of therapy: 72 hours Given 03/21/2020 6:16 PM BURNISHING MACHINE OPERATOR 500 mg enoxaparin (LOVENOX) injection 40 mg Given 03/17/2020 5:40 PM BURNISHING MACHINE OPERATOR 40 mg Abdo men-SC 40 mg, Subcutaneous, DAILY, First dose on Luh 03/17/20 at 1700, Until Discontinued, Routine ergocalciferol (vitamin d2) Given 03/19/2020 9:41 AM BURNISHING MACHINE OPERATOR 50,000 Units (CALCIFEROL) capsule 50,000 Units 50,000 Units, Oral, QWEEKLY, First dose on 03/19/20 at 0900, Until Discontinued, Routine HYDROcodone-acetaminophen (NORCO) 10-325 Given 03/21/2020 9 :23 PM BURNISHING MACHINE OPERATOR 1 tablet mg tablet 1 tablet 1 tablet, Oral, Q4HPRN, Starting 03/18/20 at 0930, Until Discontinued, Routine, Pain (scale 4-6) Given 03/20/2020 5:01 PM BURNISHING MACHINE OPERATOR 1 tablet Given 03/19/2020 4:47 PM BURNISHING MACHINE OPERATOR 1 tablet ipratropium-albuteroL (DUONEB) 0.5 mg-3 mg(2.5 Given 1 05/18/2019 7:23 PM BURNISHING MACHINE OPERATOR 3 mL mg base)/3 mL nebulizer solution 3 mL 3 mL, Inhalation, QID, First dose on Luh 03/17/20 at 0800, Until Discontinued, Routine Given 03/17/2020 4:05 PM BURNISHING MACHINE OPERATOR 3 mL Given 03/17/2020 11:47 AM BURNISHING MACHINE OPERATOR 3 mL lactobacillus acidophilus (ACIDOPHILLUS) Given 03/22/2020 4 :11 PM BURNISHING MACHINE OPERATOR 1 tablet 25 million cell -100 mg captab 1 tablet 1 tablet, Oral, QID, First dose on 03/20/20 at 1600, Until Discontinued, Routine Given 03/22/2020 12:48 PM BURNISHING MACHINE OPERATOR 1 tablet Given 03/22/2020 9:19 AM BURNISHING MACHINE OPERATOR 1 tablet maalox:diphenhydrAMINE:lidocaine 2 % viscous Given 9:27 AM BURNISHING MACHINE OPERATOR 15 mL 1:1:1 (FIRST-MOUTHWASH BLM) oral suspension 15 mL 15 mL, Oral (Swish & Swallow), BIDPRN, Starting 03/19/20 at 1518, Until Discontinued, Routine, Oral mucositis, GI pain Given 03/21/2020 10:40 PM BURNISHING MACHINE OPERATOR 15 mL Given 03/21/2020 11:06 AM BURNISHING MACHINE OPERATOR 15 mL morpHINE injection 2 mg Given 03/22/2020 12:48 PM BURNISHING MACHINE OPERATOR 2 mg 2 mg, Slow IV Push, Q6HPRN, Starting 03/18/20 at 1132, Until Discontinued, Routine, Pain (scale 7-10) Given 03/22/2020 5:15 AM BURNISHING MACHINE OPERATOR 2 mg Given 03/21/2020 10:40 PM BURNISHING MACHINE OPERATOR 2 mg nicotine (NICODERM) 21 mg/24 hr patch 1 Applied 03/22/2020 9: 21 AM BURNISHING MACHINE OPERATOR 1 Patch Patch 1 Patch, Topical, Administer over 24 Hours, Q24H, First dose on Luh 03/17/20 at 0845, Until Discontinued, Routine Applied 03/21/2020 9:36 AM BURNISHING MACHINE OPERATOR 1 Patch Applied 03/20/2020 8:01 AM BURNISHING MACHINE OPERATOR 1 Patch Left Arm pantoprazole (PROTONIX) EC tablet 40 mg Given 03/22/2020 9:22 AM BURNISHING MACHINE OPERATOR 40 mg 40 mg, Oral, BID, First dose on Luh 03/17/20 at 2000, Until Discontinued, Routine Given 03/21/2020 9:23 PM BURNISHING MACHINE OPERATOR 40 mg Given 03/21/2020 9:39 AM BURNISHING MACHINE OPERATOR 40 mg ramelteon (ROZEREM) tablet 8 mg Given 03/21/2020 9:23 PM BURNISHING MACHINE OPERATOR 8 mg 8 mg, Oral, QHS, First dose (after last modification) on 03/19/20 at 2100, Until Discontinued, Routine Given 03/20/2020 9:16 PM BURNISHING MACHINE OPERATOR 8 mg Given 03/19/2020 10:27 PM BURNISHING MACHINE OPERATOR 8 mg Medication Order MAR Action Action Date Dose Rate Site FENTanyl PF (SUBLIMAZE (PF)) Given 03/17/2020 2:43 AM BURNISHING MACHINE OPERATOR 50 mc g injection 50 mcg 50 mcg, Slow IV Push, ONCE, 1 dose, [facility] 03/17/20 at 0345, Routine FENTanyl PF (SUBLIMAZE (PF)) injection 50 Given 03/17/2020 4:45 AM BURNISHING MACHINE OPERATOR 50 mcg mcg 50 mcg, Slow IV Push, ONCE, 1 dose, [facility] 03/17/20 at 0445, STAT FENTanyl PF (SUBLIMAZE (PF)) injection 50 Given 03/17/2020 8:07 AM BURNISHING MACHINE OPERATOR 50 mcg mcg 50 mcg, Slow IV Push, ONCE, 1 dose, Luh 03/17/20 at 0745, JOSE A HYDROcodone-acetaminophen (NORCO 5) 5-325 Given 2019 12:08 PM BURNISHING MACHINE OPERATOR 1 tablet mg tablet 1 tablet 1 tablet, Oral, Q6HPRN, Starting Luh 03/17/20 at 0742, Until Luh 03/17/20 at 1442, Routine, Pain (scale 4-6) HYDROcodone-acetaminophen (NORCO) 10-325 Given 03/18/2020 3 :23 AM BURNISHING MACHINE OPERATOR 1 tablet mg tablet 1 tablet 1 tablet, Oral, Q6HPRN, Starting Luh 03/17/20 at 1441, Until Sat03/18/20 at 0919, Routine, Pain (scale 4-6) Given 03/17/2020 9:21 PM BURNISHING MACHINE OPERATOR 1 tablet Given 03/17/2020 3:26 PM BURNISHING MACHINE OPERATOR 1 tablet iohexol (OMNIPAQUE 350 BULK-150 mL) Given 03/17/2020 2:45 AM CS T 120 mL injection 120 mL 120 mL, Intravenous, ONCE, 1 dose, Luh 03/17/20 at 0245, Routine lactated ringers IV infusion New Bag 03/17/2020 8:14 AM BURNISHING MACHINE OPERATOR 1,000 mL 999 mL/hr 1,000 mL at 999 mL/hr, 1,000 mL, IV Infusion, ONCE, 1 dose, [facility] 03/17/20 at 0900, STAT lactated ringers IV infusion New Bag 03/21/2020 4:13 AM BURNISHING MACHINE OPERATOR 1,000 mL 125 mL/hr 1,000 mL at 125 mL/hr, 1,000 mL, IV Infusion, CONTINUOUS, Starting Luh 03/17/20 at 1145, Until Sat03/21/20 at 1109, Routine New Bag 03/20/2020 7:52 PM BURNISHING MACHINE OPERATOR 1,000 mL 125 mL/hr New Bag 03/20/2020 8:03 AM BURNISHING MACHINE OPERATOR 1,000 mL 125 mL/hr lactated ringers IV infusion New Bag 03/22/2020 9:25 AM BURNISHING MACHINE OPERATOR 1,000 mL 999 mL/hr 1,000 mL at 999 mL/hr, 1,000 mL, IV Infusion, ONCE, 1 dose, 03/22/20 at 0800, Routine maalox-lidocaine 2% viscous 1:1 suspension Given 03/19/2020 3:0 0 PM BURNISHING MACHINE OPERATOR 10 mL (COMPOUNDED) 10 mL, Oral, ONCE, 1 dose, 03/19/20 at 1500, Routine maalox:diphenhydrAMINE:lidocaine 2 % viscous Given 2:19 AM BURNISHING MACHINE OPERATOR 15 mL 1:1:1 (FIRST-MOUTHWASH BLM) oral suspension 15 mL 15 mL, Oral, ONCE, 1 dose, Luh 03/17/20 at 0315, Routine maalox:diphenhydrAMINE:lidocaine 2 % viscous Given 2:02 AM BURNISHING MACHINE OPERATOR 15 mL 1:1:1 (FIRST-MOUTHWASH BLM) oral suspension 15 mL 15 mL, Oral, ONCE, 1 dose, Luh 03/17/20 at 1930, Routine maalox:diphenhydrAMINE:lidocaine 2 % viscous Given 9:51 PM BURNISHING MACHINE OPERATOR 15 mL 1:1:1 (FIRST-MOUTHWASH BLM) oral suspension 15 mL 15 mL, Oral (Swish & Swallow), ONCE, 1 dose, 03/18/20 at 2030, Routine NaCl 0.9% (NS) bolus infusion New Bag 03/17/2020 1:54 AM BURNISHING MACHINE OPERATOR 1,000 mL 999 mL/hr 1,000 mL at 999 mL/hr, 1,000 mL, IV Infusion, ONCE, 1 dose, Luh 03/17/20 at 0200, JOSE A NaCl 0.9% (NS) bolus infusion 500 New Bag 03/19/2020 6:16 AM BURNISHING MACHINE OPERATOR 500 mL 500 mL/hr mL at 500 mL/hr, 500 mL, IV Piggyback, ONCE, 1 dose, 03/19/20 at 0515, JOSE A piperacillin-tazobactam (ZOSYN) 3.375 g in Given 03/17 3:56 AM BURNISHING MACHINE OPERATOR 3.375 g NaCl 0.9% (NS) 100 mL MINI-BAG 3.375 g, IV Piggyback, ONCE, 1 dose, [facility] 03/17/20 at 0445, 100 mL, Reason for Anti-Infective: Documented Infection, Documented Infection Site: Abdominal, Duration of Therapy: 7 days piperacillin-tazobactam (ZOSYN) 3.375 g in Given 03/21 9:39 AM BURNISHING MACHINE OPERATOR 3.375 g NaCl 0.9% (NS) 100 mL MINI-BAG 3.375 g, IV Piggyback, Q6H ABX, First dose on Luh 03/17/20 at 0900, Until Discontinued, 100 mL, Reason for Anti-Infective: Documented Infection, Documented Infection Site: Abdominal, Duration of Therapy: 7 days Given 03/21/2020 3:32 AM BURNISHING MACHINE OPERATOR 3.375 g Given 03/20/2020 9:16 PM BURNISHING MACHINE OPERATOR 3.375 g ramelteon (ROZEREM) tablet 8 mg Given 03/17/2020 8:41 PM BURNISHING MACHINE OPERATOR 8 mg 8 mg, Oral, QHS, First dose on Luh 03/17/20 at 2100, Until Discontinued, Routine zolpidem (AMBIEN) tablet 5 mg Given 03/18/2020 9:36 PM BURNISHING MACHINE OPERATOR 5 mg 5 mg, Oral, QHS, 1 dose, First dose on Sat03/18/20 at 2100, Routine documented in this encounter Additional Health Concerns Infection Onset Date Last Indicated Resolved Time COVID-19 Rule Out 03/17/2020 03/17/2020 03/17/2020 4: 06 AM BURNISHING MACHINE OPERATOR documented as of this encounter
[2020-04-19 10:37] LABS: Absolute Lymphocytes (CBC) 1.4 K/uL (0.7-4.9); Basophils % 0.3 % (0-1.3); Hematocrit 39.8 % (39.6-49.0); MPV 7.7 fL (7.6-11.3); RBC Red Blood Cell Count 4.43 M/uL (4.33-5.43)
[2020-04-19 10:54] LABS: ALT/SGPT 14 U/L (12-78); AST/SGOT 13 U/L (15-37); Albumin 3.6 g/dL (3.4-5.0); Alkaline Phosphatase 81 U/L (45-117); BUN Blood Urea Nitrogen 4 mg/dL (7-18); Bicarbonate 28 mmol/L (21-32); Bilirubin Direct 0.1 mg/dL (0-0.2); Bilirubin Total 0.4 mg/dL (0.2-1.0); Glucose Level 87 mg/dL (74-106); Lipase 109 U/L (73-393); Potassium 4.4 mmol/L (3.5-5.1); Protein, Total 7.5 g/dL (6.4-8.2); Sodium Level 140 mmol/L (136-145)
[2020-04-19] MEDS ORDERED: ONDANSETRON 4 MG/2 ML VIAL ONE (11:46)
[2020-04-19] MEDS ORDERED: KETOROLAC 30 MG/ML INJ ONE (11:47)
[2020-04-19 12:26] LABS: Urine Blood NEGATIVE (NEG); Urine Glucose NEGATIVE (NEG); Urine Protein NEGATIVE (NEG)
--- NOTE | 2020-04-19 12:32 | RAD REPORT ---
EXAM DESCRIPTION: CT - Abdomen Pelvis W Contrast - 04/19/2020 11:58 am CLINICAL HISTORY: RUQ abdomen pain COMPARISON: No comparisons TECHNIQUE: Biphasic, helical CT imaging of the abdomen and pelvis was performed following 100 ml non -ionic IV contrast. No oral contrast. All CT scans are performed using dose optimization technique as appropriate and may include automated exposure control or mA/KV adjustment according to patient size. FINDINGS: No suspicious findings in the lung bases. The liver, spleen, and pancreas show no suspicious findings. Gallbladder and biliary tree are also wi thout suspicious finding. Symmetric renal function is seen with no hydronephrosis or suspicious renal mass. No pyelonephritis o r acute parenchymal process. Several small focal areas of cortical thinning seen in the right kidney. No bladder abnormality. No adrenal abnormalities. No gastric dilatation or true wall thickening. Gastric wall thickness is accentuated by lack of intra luminal content. Fluid-filled small bowel loops are nondilated. This is nonspecific but could indicat e an enteritis. No colon dilatation or acute colon process seen. Appendix is not clearly defined. No indirect evidence for appendicitis. No free air, free fluid or inflammatory stranding. Metallic surgical clips are artifacts are present along the left psoas muscle. No hernia, mass or bulky lymphadenopathy. No suspicious bony findings. IMPRESSION: No obstruction, free air or surgically emergent finding identifiable. Fluid filled, nondilated small bowel loops are nonspecific. Enteritis is possible. The appendix is not clearly defined. No indirect evidence for appendicitis.
--- NOTE | 2020-04-19 12:55 | EDPHYS ---
Physician Documentation [facility] Name: Julio Nieto Age: 34 yrs Sex: Male : 1985 Arrival Date: 04/19/2020 Time: 08:51 Bed 20 Private MD: ED Physician Jimy Aparicio HPI: 04/19 10:09 This 34 yrs old Male presents to ER via Ambulatory with complaints of cp Abdominal Pain, Back Pain. 10:09 The patient presents with abdominal pain in the right upper quadrant. Onset: The cp symptoms/episode began/occurred last night. The symptoms radiate to right back. 10:10 Associated signs and symptoms: Pertinent negatives: anorexia, blood in stools, chest cp pain, constipation, diarrhea, dysuria, fever, testicular pain, vomiting. 10:10 Patient reports having similar pain 2-3 weeks ago in which he was hospitalized for 4 cp days for "intestinal infection". Patient reports he was prescribed antibiotics and told to f/u with GI doctor. Patient has not had f/u. Historical: - Allergies: 09:25 No Known Allergies; ss - Home Meds: 09:25 None [Active]; ss - PMHx: 09:25 None; ss - PSHx: 09:25 R hand; ss - Immunization history:: Adult Immunizations up to date. - Social history:: Smoking status: Patient reports the use of cigarette tobacco products, smokes one pack cigarettes per day. ROS: 10:15 Constitutional: Negative for body aches, chills, fever, poor PO intake. cp 10:15 Eyes: Negative for injury, pain, redness, and discharge. cp 10:15 ENT: Negative for ear pain, sore throat, difficulty swallowing, difficulty handling secretions. 10:15 Cardiovascular: Negative for chest pain, palpitations. 10:15 Respiratory: Negative for cough, shortness of breath, wheezing. 10:15 Abdomen/GI: Positive for abdominal pain, of the right upper quadrant, Negative for vomiting, diarrhea, constipation, anorexia, hematemesis, black/tarry stool, rectal bleeding. 10:15 Back: Positive for radiated pain. 10:15 : Negative for urinary symptoms, testicular pain 10:15 Neuro: Negative for altered mental status, headache, syncope, weakness. 10:15 All other systems are negative. Exam: 10:20 Constitutional: The patient appears in no acute distress, alert, awake, non-toxic, well cp developed, well nourished. 10:20 Head/Face: Normocephalic, atraumatic. cp 10:20 Eyes: Periorbital structures: appear normal, Conjunctiva: normal, no exudate, no injection, Sclera: no appreciated abnormality, Lids and lashes: appear normal, bilaterally. 10:20 ENT: External ear(s): are unremarkable, Nose: is normal, Posterior pharynx: Airway: no evidence of obstruction, patent. 10:20 Chest/axilla: Inspection: normal, Palpation: is normal, no crepitus, no tenderness. 10:20 Cardiovascular: Rate: normal, Rhythm: regular. 10:20 Respiratory: the patient does not display signs of respiratory distress, Respirations: normal, no use of accessory muscles, no retractions, labored breathing, is not present, Breath sounds: are clear throughout, no decreased breath sounds. 10:20 Abdomen/GI: Inspection: abdomen appears normal, Bowel sounds: active, all quadrants, Palpation: soft, in all quadrants, moderate abdominal tenderness, in the right upper quadrant, rebound tenderness, is not appreciated, voluntary guarding, is not appreciated, involuntary guarding, is not appreciated. 10:20 Back: pain, that is mild, of the right mid back, ROM is normal. Vital Signs: 09:23 BP 112 / 70; Pulse 93; Resp 16; Temp 98.8(TE); Pulse Ox 99% on R/A; Weight 72.57 kg; ss Height 5 ft. 7 in. (170.18 cm); Pain 9/10; 13:23 BP 137 / 87; Pulse 74; Resp 16; Pulse Ox 99% ; Pain 7/10; ll1 09:23 Body Mass Index 25.06 (72.57 kg, 170.18 cm) ss MDM: 10:00 Patient medically screened. kevin 11:00 Differential diagnosis: appendicitis, bowel obstruction, cholecystitis, Cholelithiasis, cp non-specific abd pain, pancreatitis, Peptic Ulcer Disease, Perf. Duodenal Ulcer, Perf. Gastric Ulcer, Pyelonephritis, Ureterolithiasis, urinary tract infection. 12:53 Data reviewed: vital signs, nurses notes, lab test result(s), radiologic studies, CT cp scan. 12:53 Counseling: I had a detailed discussion with the patient and/or guardian regarding: the cp historical points, exam findings, and any diagnostic results supporting the discharge/admit diagnosis, lab results, radiology results, the need for outpatient follow up, a professor of business administration, to return to the emergency department if symptoms worsen or persist or if there are any questions or concerns that arise at home. Response to treatment: the patient's symptoms have mildly improved after treatment, and as a result, I will discharge patient. Special discussion: Based on the patient's Hx, exam, and Dx evaluation, there is no indication for emergent surgery or inpatient Tx. It is understood by the patient/guardian that if the Sx's persist or worsen they need to return immediately for re-evaluation. ED course: VSS. Discussed results of labs and radiology studies. Will discharge to home for continued monitoring. 04/19 10:13 Order name: Basic Metabolic Panel 04/19 10:13 Order name: CBC with Diff 04/19 10:13 Order name: Hepatic Function 04/19 10:13 Order name: Lipase 04/19 10:13 Order name: Lactate; Complete Time: 12:10 04/19 10:13 Order name: Procalcitonin; Complete Time: 11:06 04/19 10:14 Order name: Basic Metabolic Panel; Complete Time: 11:06 [facility] 04/19 11:06 Interpretation: Normal except: CL 108; BUN 4. 04/19 10:14 Order name: CBC with Automated Diff; Complete Time: 11:06 [facility] 04/19 11:06 Interpretation: Normal except: WBC 13.00; BIBI% 81.4; LYM% 11.0; NEUT A 10.6. 04/19 10:14 Order name: Liver (Hepatic) Function; Complete Time: 11:06 [facility] 04/19 12:35 Interpretation: Normal except: AST 13; GLOB 3.9; A/G 0.9. 04/19 10:14 Order name: Lipase; Complete Time: 11:06 [facility] 04/19 11:07 Order name: CT Abd/Pelvis - IV Contrast Only; Complete Time: 12:34 04/19 12:35 Interpretation: Report reviewed. 04/19 12:24 Order name: Urine Dipstick--Ancillary (enter results); Complete Time: 12:34 04/19 10:13 Order name: IV Saline Lock; Complete Time: 10:15 cp 04/19 10:13 Order name: Labs collected and sent; Complete Time: 10:15 cp 04/19 10:13 Order name: Urine Dipstick-Ancillary (obtain specimen); Complete Time: 12:53 cp 04/19 12:54 Order name: PO challenge; Complete Time: 12:55 cp Administered Medications: 11:41 Drug: TORadol - Ketorolac 15 mg Route: IVP; Site: right forearm; ll1 13:03 Follow up: Response: No adverse reaction; RASS: Alert and Calm (0) ll1 11:41 Drug: Zofran (Ondansetron) 4 mg Route: IVP; Site: right forearm; ll1 13:02 Follow up: Response: No adverse reaction; RASS: Alert and Calm (0) ll1 12:52 Drug: Bentyl 20 mg Route: IM; Site: right gluteus; ll1 13:24 Follow up: Response: No adverse reaction; Pain is decreased; RASS: Alert and Calm (0) ll1 13:02 Drug: Cipro 500 mg Route: PO; ll1 13:24 Follow up: Response: No adverse reaction ll1 13:02 Drug: metroNIDAZOLE 500 mg Route: PO; ll1 13:24 Follow up: Response: No adverse reaction; RASS: Alert and Calm (0) ll1 Disposition: 17:31 Co-signature as Attending Physician, Jimy Aparicio MD I agree with the assessment and kevin plan of care. Disposition: 04/19/20 12:54 Discharged to Home. Impression: Upper abdominal pain, unspecified. - Condition is Stable. - Discharge Instructions: Abdominal Pain, Adult. - Prescriptions for Bentyl 20 mg Oral Tablet - take 2 tablet by ORAL route every 6 hours As needed; 40 tablet. Zofran 4 mg Oral Tablet - take 1 tablet by ORAL route every 12 hours As needed; 20 tablet. Cipro 500 mg Oral Tablet - take 1 tablet by ORAL route every 12 hours for 10 days; 20 tablet. Metronidazole 500 mg Oral Tablet - take 1 tablet by ORAL route every 8 hours; 30 tablet. - Medication Reconciliation Form, Thank You Letter, Antibiotic Education, Prescription Opioid Use, Work release form form. - Follow up: Nimesh Prakash MD; When: 1 - 2 days; Reason: Recheck today's complaints. - Problem is new. - Symptoms have improved. Signatures: Dispatcher [employer] EDJimy Kevin MD MD cha Smirch, Shelby, RN RN ss Jimy Hopson PA PA cp Lewis, Lynsay, RN RN ll1 Corrections: (The following items were deleted from the chart) 13:25 12:54 04/19/2020 12:54 Discharged to Home. Impression: Upper abdominal pain, ll1 unspecified. Condition is Stable. Forms are Medication Reconciliation Form, Thank You Letter, Antibiotic Education, Prescription Opioid Use. Follow up: Nimesh Prakash; When: 1 - 2 days; Reason: Recheck today's complaints. Problem is new. Symptoms have improved. cp
--- NOTE | 2020-04-19 12:55 | ER ---
Nurse's Notes [facility] Name: Julio Nieto Age: 34 yrs Sex: Male : 1985 Arrival Date: 04/19/2020 Time: 08:51 Bed 20 Private MD: Diagnosis: Upper abdominal pain, unspecified Presentation: 04/19 09:23 Chief complaint: Patient states: RUQ pain that began 3 days ago. Pt reports he was ss admitted for a GI infection 1 month ago. Feels similar. Coronavirus screen: Client denies travel out of the [place] in the last 14 days. Ebola Screen: Patient denies exposure to infectious person. Patient denies travel to an Ebola-affected area in the 21 days before illness onset. Initial Sepsis Screen: Does the patient meet any 2 criteria? No. Patient's initial sepsis screen is negative. Does the patient have a suspected source of infection? No. Patient's initial sepsis screen is negative. Risk Assessment: Do you want to hurt yourself or someone else? Patient reports no desire to harm self or others. Onset of symptoms was April 16, 2020. 09:23 Method Of Arrival: Ambulatory ss 09:23 Acuity: CYNDY 3 ss Historical: - Allergies: 09:25 No Known Allergies; ss - Home Meds: 09:25 None [Active]; ss - PMHx: 09:25 None; ss - PSHx: 09:25 R hand; ss - Immunization history:: Adult Immunizations up to date. - Social history:: Smoking status: Patient reports the use of cigarette tobacco products, smokes one pack cigarettes per day. Screenin:32 Abuse screen: Denies threats or abuse. Nutritional screening: No deficits noted. ll1 Tuberculosis screening: No symptoms or risk factors identified. Fall Risk None identified. IV access (20 points). Total Sibley Fall Scale indicates No Risk (0-24 pts). Assessment: 10:31 General: Appears uncomfortable, Behavior is calm, cooperative, appropriate for age. ll1 Pain: Complains of pain in epigastric/RUQ Quality of pain is described as crampy, sharp, Is continuous, episodic. Neuro: No deficits noted. Cardiovascular: No deficits noted. Respiratory: No deficits noted. GI: Abdomen is flat, Bowel sounds present X 4 quads. Abd is soft Reports upper abdominal pain, constipation, cramping, nausea. 11:30 Reassessment: No changes from previously documented assessment. Patient and/or family ll1 updated on plan of care and expected duration. Pain level reassessed. Patient is alert, oriented x 3, equal unlabored respirations, skin warm/dry/pink. 12:30 Reassessment: No changes from previously documented assessment. Patient and/or family ll1 updated on plan of care and expected duration. Pain level reassessed. 13:25 Reassessment: No changes from previously documented assessment. Patient and/or family ll1 updated on plan of care and expected duration. Pain level reassessed. Patient is alert, oriented x 3, equal unlabored respirations, skin warm/dry/pink. Vital Signs: 09:23 BP 112 / 70; Pulse 93; Resp 16; Temp 98.8(TE); Pulse Ox 99% on R/A; Weight 72.57 kg; ss Height 5 ft. 7 in. (170.18 cm); Pain 9/10; 13:23 BP 137 / 87; Pulse 74; Resp 16; Pulse Ox 99% ; Pain 7/10; ll1 09:23 Body Mass Index 25.06 (72.57 kg, 170.18 cm) ED Course: 08:51 Patient arrived in ED. mr 09:25 Triage completed. ss 09:25 Arm band placed on right wrist. ss 09:55 Jimy Hopson PA is PHCP. cp 09:55 Jimy Aparicio MD is Attending Physician. cp 10:11 Yamila Tyson, SHARRON is Primary Nurse. ll1 10:15 Inserted saline lock: 22 gauge in right forearm, using aseptic technique. Blood ll1 collected. 10:32 Patient has correct armband on for positive identification. Bed in low position. Call ll1 light in reach. Side rails up X 1. 11:[address] via wheelchair. sw 11:58 CT Abd/Pelvis - IV Contrast Only In Process Unspecified. EDMS 12:54 Nimesh Prakash MD is Referral Physician. cp 13:24 No provider procedures requiring assistance completed. IV discontinued, intact, ll1 bleeding controlled, No redness/swelling at site. Pressure dressing applied. Administered Medications: 11:41 Drug: TORadol - Ketorolac 15 mg Route: IVP; Site: right forearm; ll1 13:03 Follow up: Response: No adverse reaction; RASS: Alert and Calm (0) ll1 11:41 Drug: Zofran (Ondansetron) 4 mg Route: IVP; Site: right forearm; ll1 13:02 Follow up: Response: No adverse reaction; RASS: Alert and Calm (0) ll1 12:52 Drug: Bentyl 20 mg Route: IM; Site: right gluteus; ll1 13:24 Follow up: Response: No adverse reaction; Pain is decreased; RASS: Alert and Calm (0) ll1 13:02 Drug: Cipro 500 mg Route: PO; ll1 13:24 Follow up: Response: No adverse reaction ll1 13:02 Drug: metroNIDAZOLE 500 mg Route: PO; ll1 13:24 Follow up: Response: No adverse reaction; RASS: Alert and Calm (0) 1 Outcome: 12:54 Discharge ordered by MD. cp 13:25 Discharged to home ambulatory. ll1 13:25 Condition: stable 13:25 Discharge instructions given to patient, Instructed on discharge instructions, follow up and referral plans. medication usage, Demonstrated understanding of instructions, follow-up care, medications, Prescriptions given X 4. 13:25 Patient left the ED. 1 Signatures: Dispatcher [employer] EDME Yahaira Hazel Shelby, RN Liya Kay Corey, PA PA cp Lewis, Lynsay RN RN ll1
[2020-04-19] MEDS ORDERED: DICYCLOMINE HCL 20 MG/2 ML AMP IM ONE (13:05)
[2020-04-19] MEDS ORDERED: metroNIDAZOLE 500 MG TABLET ONE (13:13)
[2020-04-19] MEDS ORDERED: CIPROFLOXACIN HCL 500 MG TAB ONE (13:14)
[2020-04-19 13:30] VITALS: TEMP 98.8; O2SAT 99
[2020-04-19 13:31] VITALS: BP 137/87
== END 2020-04-19 13:25 | disposition home or self-care (01) ==
LOC: ER 08:49
DX: R10.11 Right upper quadrant pain (principal); F17.210 Nicotine dependence, cigarettes, uncomplicated
CPT/HCPCS: 36415; 74177; 80048; 80076; 81003; 83605; 83690; 84145; 85025; 96372; 96374; 96375; 99284; J0500; J2405; Q9967